=== PATIENT | female | born 1950 | race Caucasian/White ===

== ENCOUNTER 2023-10-16 07:00 | Outpatient (NON) | payer MEDICARE, SELFPAY | END 2023-10-16 07:01 | disposition home or self-care (01) | LOC: ANHLAB 10-17 08:30 | PROVIDERS: PCP Family Medicine; Visit Provider Internal Medicine Gastroenterology | DX: D12.2 Benign neoplasm of ascending colon (principal); R19.5 Other fecal abnormalities | CPT/HCPCS: 88305 ==

== ENCOUNTER 2023-10-16 07:15 | Day surgery (SDC) | payer MEDICARE, SELFPAY ==
[2023-09-25 09:13] VITALS: BMI 29.3
[2023-10-07 13:44] VITALS: BMI 29.1
[2023-10-16] MEDS: LACTATED RINGERS 1,000 ML 150 ML IV CONT (08:52)
[2023-10-16 08:53] VITALS: BP 143/80; PULSE 100; RESP 16; TEMP 36.8; O2SAT 99; BMI 29.2
--- NOTE | 2023-10-16 09:16 | PM.HPGS ---
History of Present Illness History of Present Illness Consent: Risks, benefits, and alternatives have been discussed and questions answered. Patient agrees to proceed with procedure. Chief complaint: Positive Cologuard test. Narrative: Melanie Duff is a 73 year old female referred for colonoscopy. Patient found to have Cologuard test that was positive. Patient reports that her current weight appetite and bowel movements are normal. She denies abdominal pain. Patient has had no bleeding. Family history is noncontributory. Review of Systems Review of Systems: All systems reviewed & are unremarkable except as noted in HPI and below PMFSH Past Medical History Medical History (Updated 10/16/23 @ 09:18 by Chase Sandhu MD) Breast cancer, left breast Wellness examination Surgical History Surgical History (Updated 08/16/23 @ 10:48 by LAILA Marshall-C) History of bladder surgery bladder sling History of hysterectomy History of mastectomy, total bilateral Hx of cataract surgery bilateral Hx of cholecystectomy Family History Family History Mother Hypertension Social History Social History Smoking status: Never smoker Alcohol intake: current Drinks per week: 4 Alcohol use details: social/holiday drinker Substance use: never Substance use type: does not use Lack of Transportation: No Lack of Food: Never True Current Housing: I Have Housing Concerned About Future Housing: No Difficulty Paying Gas/Electric Bills: No Difficulty Paying for Meds: No Education: Bachelor's Degree Difficulty w/ Childcare or Family Care: No Living arrangements: with family Occupation/Education: retired Spiritual care concerns: No Meds Home Medications and Allergies Home Medications Medication Instructions Recorded Confirmed Type Lactobacillus 1 cap PO DAILY 10/07/23 10/07/23 History acidophilus-Bifidobac.animalis 2.5 billion cell capsule (Daily Probiotic) Allergies Allergy/AdvReac Type Severity Reaction Status Date / Time Penicillins Allergy Unknown RASH Verified 10/16/23 08:38 Vital Signs Vital Signs - 24 hr 10/16/23 08:53 Temperature 98.3 F Pulse Rate 100 Respiratory Rate 16 Blood Pressure 143/80 H Pulse Oximetry 99 Oxygen Delivery Room Air Exam Narrative: Physical exam reveals patient to be alert signs stable. HEENT exam is unremarkable. Patient is anicteric. Lungs are clear to auscultation and to percussion. Heart is without murmur or extra sounds. Abdomen bowel sounds are present soft nontender with no organomegaly. Digital external rectal exam normal. Assessment and Plan Assessment and plan (1) Encounter for colorectal cancer screening using Cologuard test: Code(s): Z12.11 - Encounter for screening for malignant neoplasm of colon; Z12.12 - Encounter for screening for malignant neoplasm of rectum Status: Acute Assessment and Plan: Positive Cologuard test. Screening colonoscopy to be performed today.
--- NOTE | 2023-10-16 09:17 | P.PNAN_ITS ---
Anes - Initial Pre Proc Eval Procedure: Operation Date: 10/16/23 10:00 Proposed Procedures p Diagnostic Colonoscopy - Chase Sandhu MD Date/Time: 10/16/23 09:17 Surgeon: Chase Sandhu MD Pre Op Diagnosis: Other Fecal Abnormalities Patient Data Age: 73 Gender: F Height: 1.55 m Weight: 70.1 kg Last Vital Signs Temp 36.8 C 10/16/23 08:53 Pulse 100 10/16/23 08:53 Resp 16 10/16/23 08:53 BP 143/80 H 10/16/23 08:53 Pulse Ox 99 10/16/23 08:53 O2 Del Method Room Air 10/16/23 08:53 Allergies Allergy/AdvReac Type Severity Reaction Status Date / Time Penicillins Allergy Unknown RASH Verified 10/16/23 08:38 Home Medications Medication Instructions Recorded Confirmed Type Lactobacillus 1 cap PO DAILY 10/07/23 10/07/23 History acidophilus-Bifidobac.animalis 2.5 billion cell capsule (Daily Probiotic) Patient hx anesthesia problems: none Family hx anesthesia problems: none Results Review: All pre-operative results and documents have been reviewed as part of the pre- operative evaluation. [facility] Past Medical History Medical History Breast cancer, left breast Wellness examination Surgical History Surgical History History of bladder surgery bladder sling History of hysterectomy History of mastectomy, total bilateral Hx of cataract surgery bilateral Hx of cholecystectomy Family History Family History Mother Hypertension Social History Social History Smoking status: Never smoker Alcohol intake: current Drinks per week: 4 Alcohol use details: social/holiday drinker Substance use: never Substance use type: does not use Lack of Transportation: No Lack of Food: Never True Current Housing: I Have Housing Concerned About Future Housing: No Difficulty Paying Gas/Electric Bills: No Difficulty Paying for Meds: No Education: Bachelor's Degree Difficulty w/ Childcare or Family Care: No Living arrangements: with family Occupation/Education: retired Spiritual care concerns: No Anes - Eval Final PreProcedure Day of Procedure 10/16/23 09:17 Patient weight: overweight Heart: regular rate and rhythm Lungs: clear to auscultation Airway: Mallampati scale class II Neurological: alert and oriented Last oral intake: >/= 8 hours ASA classification: II Emergent: no Anesthetic plan: proceed Anesthesia type and monitoring: general GIVS and standard monitoring Results Review: All pre-operative results and documents have been reviewed as part of the pre- operative evaluation. Informed Consent: The patient's anesthetic plan and its attendant risks and benefits were discussed with the patient/family/POA. Questions were solicited and answers provided to the satisfaction of the patient/family/POA.
[2023-10-16 09:45] VITALS: BP 94/49; PULSE 79; RESP 15; O2SAT 94
[2023-10-16 09:55] VITALS: BP 104/71; PULSE 79; RESP 16; O2SAT 100
--- NOTE | 2023-10-16 09:56 | WPDANESPN ---
Anes - Prog Note Post-Op Date/Time: 10/16/23 09:56 Cardiovascular status: normal Respiratory status: normal Airway patency: baseline Mental status: baseline Post-Op hydration status: normal Vital Signs: Last Vital Signs Temp 36.8 C 10/16/23 08:53 Pulse 100 10/16/23 08:53 Resp 16 10/16/23 08:53 BP 143/80 H 10/16/23 08:53 Pulse Ox 99 10/16/23 08:53 O2 Del Method Room Air 10/16/23 08:53 Pain Score (VAS): 0/10 I/O: Intake & Output 10/15/23 10/16/23 10/16/23 23:59 07:59 15:59 Intake Total 550 Balance 550 Patient Feedback: Patient satisfied with anesthetic care.
[2023-10-16 10:05] VITALS: BP 112/69; PULSE 80; RESP 16; O2SAT 100
== END 2023-10-16 10:22 | disposition home or self-care (01) ==
PROVIDERS: PCP Family Medicine; Visit Provider Internal Medicine Gastroenterology
PROC: 0DJD8ZZ Inspection of Lower Intestinal Tract, Via Natural or Artificial Opening Endoscopic (ICD-10-PCS; CPT 45378; principal; 2023-10-16 10:00)
DX: R19.5 Other fecal abnormalities (principal); D37.4 Neoplasm of uncertain behavior of colon
CPT/HCPCS: 45380; 45381

== ENCOUNTER 2023-11-05 13:36 | Outpatient (CLI) | payer MEDICARE, SELFPAY ==
--- NOTE | 2023-11-05 15:13 | ECG_ITS ---
Test Date: 2023-11-05 15:25:11 Measurements Intervals [place] Rate: 67 P: -8 [place]: 138 QRS: -1 QRSD: 136 T: 66 QT: 415 QTc: 438 Interpretive Statements SINUS RHYTHM LEFT BUNDLE BRANCH BLOCK BASELINE ARTIFACT- I, II, III, AVR, AVL, AVF ABNORMAL ECG No previous ECG available for comparison Electronically Signed On 11-05-2023 15:33:42 CDT by Benigno Matos D.O.
[2023-11-05 15:56] LABS: Hemoglobin 13.4 g/dL (12.0-15.0)
== END 2023-11-05 13:37 | disposition home or self-care (01) ==
PROVIDERS: Anesthesiology; PCP Family Medicine; Visit Provider Surgery
DX: K63.89 Other specified diseases of intestine (principal); Z01.818 Encounter for other preprocedural examination
CPT/HCPCS: 36415; 85014; 85018; 86850; 86900; 86901; 93005

== ENCOUNTER 2023-11-11 08:16 | Inpatient (IN) | payer MEDICARE, SELFPAY ==
[2023-11-05 14:26] VITALS: BMI 29.6
--- NOTE | 2023-11-05 14:32 | PC.NURSE ---
Report to the Outpatient Waiting Room, entrance under the green pavilion located off [facility], at time _10:00AM_ on date _11/11/23_. Planned Procedure Time: _12:00PM .? Time changes happen often and if your time is changed the preop area will call you the afternoon before. - You and your visitor will be asked to self-screen and do not enter if you have any COVID symptoms. Please call surgeon if you need to reschedule. - A mask is optional within the hospital at this time. Patients may have clear liquids DAY BEFORE AND MORNING OF SURGERY-(water, carbonated beverages, clear teas, apple juice) until 3 hours prior TO SURGERY. Take only the following medications with a SIP of water on the morning of surgery: NONE DO NOT STOP ANY OF YOUR OTHER PRESCRIPTION MEDICATIONS PRIOR TO SURGERY EXCEPT THE FOLLOWING Medications to discontinue per physician ____HOLD VITAMINS/SUPPLEMENTS 3 DAYS PRE-OP PER ANESTHESIA Date to take last dose 11/07/23 Please no make-up, nail guamanian, hairspray, perfume, deodorant, or body powder the day of surgery.? No jewelry (including any body piercings) or valuables the day of surgery, leave them at home.? Please take a shower or bath the night before, or the morning of, surgery with an antibacterial soap.? Wear comfortable, loose fitting clothing.? - Jewelry must be removed prior to entering the operating room.? Rings and piercings that are not removed may be cut off. - The hospital will not accept responsibility for valuables.? - Please leave all valuables, including medications, at home the day of surgery. If you are going home after surgery, a licensed day haul or farm charter bus driver must drive you home.? - NO public transportation without another adult if you receive anesthesia. - We recommend that an adult stay with you for 24 hours following discharge. - We also recommend that you do not drive, make important decision, drink alcoholic beverages, or take any drugs that were not prescribed by your health care provider for at least 24 hours after your discharge time. Follow any additional instructions given to you from your surgeon. GAIL SHOWER PER INSTRUCTIONS ENSURE BUNDLE INSTRUCTIONS. BOWEL PREP INSTRUCTIONS. ANTIBIOTIC INSTRUCTIONS FOR DAY BEFORE SURGERY. Telephone instructions given to ____PATIENT and asked if any additional questions and then verbalized understanding. Patient advised to call surgeon office or pre surgery nurse liaison [phone] if any additional questions.
[2023-11-11] VITALS (11 sets, daily range): BP systolic 112–141; BP diastolic 50–72; PULSE 73–102; RESP 10–18; TEMP 35.7–36.7; O2SAT 93–100; BMI 28.8
[2023-11-11] MEDS: ACETAMINOPHEN 500 MG TABLET 1000 MG PO (10:36)
[2023-11-11] MEDS: KETOROLAC 15 MG/ML VIAL (*BKC) IV PUSH (10:36)
--- NOTE | 2023-11-11 11:37 | WPDANESEPPF ---
Anes - Initial Pre Proc Eval Procedure: Operation Date: 11/11/23 12:00 Proposed Procedures p Hand Assisted Laparoscopic Right Colectomy - Nadya Almeida MD Date/Time: 11/11/23 11:37 Surgeon: Nadya Almieda MD Pre Op Diagnosis: right colon mass Patient Data Age: 73 Gender: F Height: 1.55 m Weight: 69.1 kg Last Vital Signs Temp 98 F 11/11/23 11:08 Pulse 93 11/11/23 11:08 Resp 16 11/11/23 11:08 BP 141/62 H 11/11/23 11:08 Pulse Ox 100 11/11/23 11:08 Allergies Allergy/AdvReac Type Severity Reaction Status Date / Time Penicillins Allergy Unknown RASH Verified 11/11/23 11:01 Home Medications Medication Instructions Recorded Confirmed Type Lactobacillus 1 cap PO DAILY 10/07/23 11/11/23 History acidophilus-Bifidobac.animalis 2.5 billion cell capsule (Daily Probiotic) cholecalciferol (vitamin D3) 25 25 mcg PO DAILY 10/30/23 11/11/23 History mcg (1,000 unit) capsule ciprofloxacin HCl 500 mg tablet 500 mg PO .COMPLEX #1 tablet 11/05/23 11/11/23 Rx metronidazole 500 mg tablet 500 mg PO .COMPLEX #3 tabs 11/05/23 11/11/23 Rx omeprazole magnesium 20 mg 20 mg PO DAILY PRN Indigestion 11/05/23 11/05/23 History capsule,delayed release (Acid [employer] (omeprazole)) Patient hx anesthesia problems: none Family hx anesthesia problems: none Results Review: All pre-operative results and documents have been reviewed as part of the pre-operative evaluation. [facility] Past Medical History Medical History (Updated 10/30/23 @ 11:27 by Altagracia Vega CMA) Breast cancer, left breast Wellness examination Surgical History Surgical History (Updated 10/30/23 @ 11:21 by Kena Briones) History of bladder surgery bladder sling History of hysterectomy History of mastectomy, total bilateral with left axillary SLN biopsy. Hx of cataract surgery bilateral Hx of cholecystectomy Family History Family History Mother Hypertension Social History Social History Smoking packs per day: 0.2 Smoking cigarettes per day: 4.0 Years smoked: 2 Smoking pack-years: 0.40 Smoking status: Former smoker Tobacco type: cigarettes Smoking end date: 09/02/71 Alcohol intake: current Drinks per week: 5 Alcohol use details: social/holiday drinker Substance use: never Substance use type: does not use Do You Feel Safe in your Home?: Yes Lack of Transportation: No Lack of Food: Never True Current Housing: I Have Housing Concerned About Future Housing: No Difficulty Paying Gas/Electric Bills: No Difficulty Paying for Meds: No Currently Unemployed: No Education: Bachelor's Degree Difficulty w/ Childcare or Family Care: No Living arrangements: with family Additional living arrangements comments: [facility] Occupation/Education: retired Spiritual care concerns: No Anes - Eval Final PreProcedure Day of Procedure 11/11/23 11:37 Patient weight: normal Heart: regular rate and rhythm Lungs: clear to auscultation Airway: Mallampati scale class II Neurological: alert and oriented Last oral intake: >/= 8 hours ASA classification: III Emergent: no Anesthetic plan: proceed Anesthesia type and monitoring: general ETT and standard monitoring Results Review: All pre-operative results and documents have been reviewed as part of the pre-operative evaluation. Informed Consent: The patient's anesthetic plan and its attendant risks and benefits were discussed with the patient/family/POA. Questions were solicited and answers provided to the satisfaction of the patient/family/POA.
[2023-11-11] MEDS: LACTATED RINGERS 1,000 ML 30 ML IV CONT ×2 (12:00→14:03)
--- NOTE | 2023-11-11 12:06 | WPDHPUPDATE1 ---
History and Physical Update Update Date/Time: 11/11/23 12:06 History and Physical has been reviewed, including an updated exam of the patient. There are NO changes in the patient's condition. Risks, benefits, and alternatives have been discussed and questions answered. Patient agrees to proceed with procedure.
[2023-11-11] MEDS: ceFAZolin 2 GM/D5W 50 ML 2 GM/50 ML BAG IVPB (12:20)
[2023-11-11] MEDS: BUPIVACAINE/EPINEPHRINE 0.5% 50 ML VIAL 30 ML INFILTRATE (12:38)
--- NOTE | 2023-11-11 13:51 | W.PM.PROC2 ---
Procedure Note - Detailed Date of Procedure 11/11/23 Pre-op Diagnosis right colon mass Post-op Diagnosis Same Procedure Performed hand assisted laparoscopic right hemicolectomy c mobilization of hepatic flexure, lysis of adhesion of approximately 30 minutes Surgeon Nadya Almeida MD Anesthesia General Indications 73-year-old female ascending colon mass found on colonoscopy. 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 Findings palpable mass and tatoo in proximal ascending colon Description of Procedure The patient was taken to the operating room and placed in the supine position. After adequate induction of general anesthesia, the patient was prepped and draped normal sterile fashion. A time-out was then done to verify the patient's identity as well as the procedure being performed. I began by making a hand port incision around the umbilicus. This was carried down into the peritoneal cavity and there was noted adhesions to the right superior anterior abdominal wall. These adhesions were taken down under visualization with the bovie cautery. Once the abdominal wall was cleared, the hand port was then placed. I then insufflated the abdomen through the hand port. I then placed the camera through the hand port and under direct visualization, I placed 2 further 5 mm ports in right lower and right mid abdomen. Once this was done, I examined the right abdomen. It was noted that the patient had adhesions of the cecum and distal ileum to the pelvis. These adhesions were taken down both bluntly and with the ligasure under direct visualization. This adhesiolysis took approximately 30 minutes. Once the right colon was mobilized, I began my medial approach. I did this by 1st recognizing and transecting the right colic vessels. This was taken down near the base of the mesentery with the LigaSure. Once this was done, I carried this plane towards the hepatic flexure until I encountered the duodenum which was mobilized posteriorly. I then began taking down the lateral attachments of the terminal ileum and right colon including taking down the white line of Toldt and the hepatic flexure. Once this was done my medial and lateral dissection planes met. I was able to easily manipulate the right colon. The tattoed region and palpable mass was noted in the proximal ascending colon. At this point, I extracorporealyzed the right colon and terminal ileum. I then transected the terminal ileum approximately 10 cm proximal to the ileo colic junction with a 75 WING stapler. I then localized the tumor in the proximal ascending colon. I measured 10 cm distal to this and transected the ascending colon at this point. Of note, I was able to palpate the middle colic vessels and the transection was done proximal to the vessels. I then performed a [id number] functional end-to-end anastomosis between the ileum and distal ascending colon with a 75 WING stapler followed by a TL 60 stapler. The anastomosis was noted to be tension-free and widely patent. I closed the messenteric defect with a 2.0 silk suture. I then copiously irrigated the abdomen, no other pathology was noted. I then closed the hand port incision with a 0 PDS suture at the fascial level. The skin was closed with 4 O Monocryl subcuticular sutures including the 5 mm ports sites. Dermabond was then placed on all wounds. The patient tolerated the procedure well. She was extubated in the operating room postoperatively and will be transferred to the recovery room in stable condition. Estimated Blood Loss 25 Drains No Packing No Pathology Yes Complications No immediate complications Condition Stable Disposition PACU [facility] Billing Surgery - Charge Forward: Surgery Billing
--- NOTE | 2023-11-11 15:23 | ADMGEN ---
This patient, Melanie Duff, was admitted to 3 Med Surg Room 331-01. Patient/family oriented to hospital policies and general routines including ID bracelet, bed and alarms, visiting hours, pain management, procedures, bathroom and other care routines, personal items, smoking policy, room service/diet, and visiting hours. Information on how to activate the Rapid Response Team has been discussed. Patient/Family are encouraged to report perceived risks to care and to ask questions if they do not understand what they are told or what they should do.
[2023-11-11] MEDS: LACTATED RINGERS 1,000 ML 100 ML IV CONT (16:14)
[2023-11-11] MEDS: metroNIDAZOLE 500 MG/ISO 100ML 500 MG/100 ML BAG 100 MG IVPB ×2 (16:45→23:26)
[2023-11-11] MEDS: LACTATED RINGERS 1,000 ML 80 ML IV CONT (16:46)
[2023-11-11] MEDS: HYDROmorphone HCL INJ (*CRX) 1 MG/ML SYR 0.5 MG IV PUSH (20:53)
[2023-11-11] MEDS: FAMOTIDINE 20 MG/2 ML VIAL IV PUSH (20:53)
[2023-11-12] VITALS (8 sets, daily range): BP systolic 101–138; BP diastolic 58–63; PULSE 84–100; RESP 14–20; TEMP 36.7–37.1; O2SAT 90–96
[2023-11-12] MEDS: BENZOCAINE/MENTHOL (*BKC) 18 EA LOZENGE 1 LOZENGE PO (00:21)
[2023-11-12] MEDS: ONDANSETRON INJ 4 MG/2 ML VIAL IV PUSH ×2 (00:32→18:47)
[2023-11-12] MEDS: HYDROmorphone HCL INJ (*CRX) 1 MG/ML SYR IV PUSH ×3 (03:27→18:47)
[2023-11-12] MEDS: LACTATED RINGERS 1,000 ML 100 ML IV CONT (05:22)
[2023-11-12 06:32] LABS: Hematocrit 33.6 % (37.0-47.0); Hemoglobin 11.3 g/dL (12.0-15.0); Mean Corpuscular HGB Conc 33.6 g/dl (32-36); Mean Corpuscular Hemoglobin 32.9 pg (26-34); Mean Platelet Volume 9.8 fl (7.4-10.4); Platelet Count Result 255 k/mm3 (150-375); Red Blood Count 3.43 M/mm3 (4.2-5.4); Red Cell Distribution Width 11.6 % (11.5-14.5); White Blood Count 9.5 K/mm3 (4.5-10.0)
[2023-11-12 06:45] LABS: Anion Gap 10 mmol/L (4-12); Blood Urea Nitrogen 11 mg/dL (7-17); Calcium 8.6 mg/dL (8.4-10.2); Carbon Dioxide 25 mmol/L (22-30); Chloride 97 mmol/L (98-107); Estimated CRCL calculation 58 ml/min; Estimated Glomerular Filt Rate > 60; Glucose 122 mg/dL (65-110); Sodium 132 mmol/L (137-145)
[2023-11-12] MEDS: ENOXAPARIN 40 MG/0.4 ML SYRINGE SUB-Q (08:08)
[2023-11-12] MEDS: FAMOTIDINE 20 MG/2 ML VIAL IV PUSH ×2 (08:08→20:34)
--- NOTE | 2023-11-12 08:53 | WPDANESPN ---
Anes - Prog Note Post-Op Date/Time: 11/12/23 08:53 Cardiovascular status: normal Respiratory status: normal Airway patency: baseline Mental status: baseline Post-Op hydration status: normal Vital Signs: Last Vital Signs Temp 37.1 C 11/12/23 04:35 Pulse 100 11/12/23 04:35 Resp 18 11/12/23 04:35 BP 105/62 11/12/23 04:35 Pulse Ox 95 11/12/23 04:35 O2 Del Method Room Air 11/11/23 20:53 O2 Flow Rate 6 11/11/23 14:15 Pain Score (VAS): 3 I/O: Intake & Output 11/11/23 11/12/23 11/12/23 23:59 07:59 15:59 Intake Total 210 1200 Output Total 500 Balance 210 700 Laboratory Tests 11/12/23 06:08 11/12/23 06:08 11/12/23 06:08 WBC 9.5 RBC 3.43 L Hgb 11.3 L Hct 33.6 L MCV 98.0 MCH 32.9 MCHC 33.6 RDW 11.6 Plt Count 255 MPV 9.8 Sodium 132 L Potassium 4.0 Chloride 97 L Carbon Dioxide 25 Anion Gap 10 BUN 11 Creatinine 0.70 Estim Creat Clear Calc 58 Estimated GFR > 60 Glucose 122 H Calcium 8.6 Post-procedural complaints: none Patient Feedback: Patient satisfied with anesthetic care.
--- NOTE | 2023-11-12 14:04 | PM.PNGS ---
Progress Note: A&P Assessment and Plan (1) Mass of colon: Code(s): K63.89 - Other specified diseases of intestine Status: Acute Assessment and Plan: S/p GELACIO right hemicolectomy and doing well POD1 Advance to full liquids, ADAT. Stop IV fluids. Transition to oral pain medication. Increase activity, ambulate in the halls. Encouraged IS use. Pathology pending Plan I have discussed the patient's case and plan of care with Dr. Almeida Subjective Subjective Date/Time Seen: 11/12/23 14:04 Post Op day: 1 (GELACIO right hemicolectomy) Patient reports: tolerating liquids well, voiding w/o difficulty, no flatus, no bowel movement and afebrile Interval history: Patient doing well. Reports mild bloating and incisional soreness that is controlled. She is ambulating and tolerating this well. No nausea or vomiting. No other complaints at this time. Exam Const: General: comfortable and no acute distress GI: Inspection: non-distended and incision (incisions dry and intact) GI Palp: Yes Soft to palpation, Yes Tenderness to palpation present (GI) (incisional) and No Guarding due to palpation present (GI) Auscultation: Hypoactive bowel sounds present Neuro: General: moves all extremities and no focal motor deficits Extrem: General: no calf tenderness and no edema Psych: Mental Status: mental status grossly normal Insight: Good insight present (Psych) Objective Data Vital Signs Vital Signs: Vital Signs - 24 hr 11/11/23 14:25 11/11/23 14:15 11/11/23 14:30 Temperature Pulse Rate 91 81 Respiratory Rate 12 12 Blood Pressure 122/72 136/66 Pulse Oximetry 100 97 Oxygen Delivery Room Air Simple Face Mask Room Air Oxygen Flow Rate 6 11/11/23 14:45 11/11/23 15:00 11/11/23 15:15 Temperature 97.0 F L Pulse Rate 78 78 73 Respiratory Rate 12 14 12 Blood Pressure 131/59 L 122/50 L 135/55 L Pulse Oximetry 95 97 98 Oxygen Delivery Room Air Room Air Room Air Oxygen Flow Rate 11/11/23 15:45 11/11/23 16:00 11/11/23 16:30 Temperature 97.3 F L 96.3 F L 96.6 F L Pulse Rate 84 79 86 Respiratory Rate 16 18 18 Blood Pressure 112/70 127/54 L 130/70 Pulse Oximetry 97 93 98 Oxygen Delivery Oxygen Flow Rate 11/11/23 20:53 11/11/23 21:00 11/12/23 00:55 Temperature 98.1 F 98.4 F Pulse Rate 94 92 Respiratory Rate 18 20 Blood Pressure 118/70 119/60 Pulse Oximetry 96 94 Oxygen Delivery Room Air Oxygen Flow Rate 11/12/23 04:35 11/12/23 08:08 11/12/23 07:33 Temperature 98.8 F 98.6 F Pulse Rate 100 87 Respiratory Rate 18 16 Blood Pressure 105/62 124/63 Pulse Oximetry 95 96 Oxygen Delivery Room Air Oxygen Flow Rate Intake/Output Intake/Output: Intake & Output 11/09/23 11/10/23 11/11/23 11/12/23 23:59 23:59 23:59 23:59 Intake Total 760 1550 Output Total 500 Balance 760 1050 Meds/Results Medications: Active Medications Generic Name Dose Route Start Last Admin Trade Name Freq PRN Reason Stop Dose Admin Hydrocodone Bitart/Acetaminophen 1 tab 11/11/23 13:48 Hydrocodone/Acetaminophen (*Crx) 5-325 Mg Tablet PO Q4H PRN Pain Rated 4-6 Benzocaine 1 lozenge 11/11/23 23:53 11/12/23 00:21 Benzocaine/Menthol (*Bkc) 18 Ea Lozenge PO 1 lozenge PRN PRN Administration Sore Throat Enoxaparin Sodium 40 mg 11/12/23 09:00 11/12/23 08:08 Enoxaparin 40 Mg/0.4 Ml Syringe SUB-Q 40 mg DAILY PINKY Administration Famotidine 20 mg 11/11/23 21:00 11/12/23 08:08 Famotidine 20 Mg/2 Ml Vial IV PUSH 20 mg Q12HR PINKY Administration Hydromorphone HCl 1 mg 11/11/23 13:48 11/12/23 11:04 Hydromorphone Hcl Inj (*Crx) 1 Mg/Ml Syr IV PUSH 1 mg Q2H PRN Administration Breakthrough Pain Rated 7-10 or NPO Hydromorphone HCl 0.5 mg 11/11/23 13:48 11/11/23 20:53 Hydromorphone Hcl Inj (*Crx) 1 Mg/Ml Syr IV PUSH 0.5 mg Q2H PRN Administration Breakthrough Pain Rated 4-6 or NPO Lactated Ringer's 1,000 mls @
[2023-11-12] MEDS: HYDROcodone/acetaminophen (*CRX) 5-325 MG TABLET 1 TAB PO (23:55)
[2023-11-13 03:42] VITALS: BP 121/65; PULSE 94; RESP 16; TEMP 36.6; O2SAT 89
[2023-11-13 06:16] LABS: Hematocrit 32.8 % (37.0-47.0); Hemoglobin 10.8 g/dL (12.0-15.0); Mean Corpuscular HGB Conc 32.9 g/dl (32-36); Mean Corpuscular Hemoglobin 32.5 pg (26-34); Mean Corpuscular Volume 98.8 fl (80-100); Mean Platelet Volume 10.2 fl (7.4-10.4); Platelet Count Result 229 k/mm3 (150-375); Red Blood Count 3.32 M/mm3 (4.2-5.4); Red Cell Distribution Width 11.4 % (11.5-14.5); White Blood Count 6.6 K/mm3 (4.5-10.0)
[2023-11-13 06:39] LABS: Anion Gap 6 mmol/L (4-12); Blood Urea Nitrogen 5 mg/dL (7-17); Calcium 8.8 mg/dL (8.4-10.2); Carbon Dioxide 30 mmol/L (22-30); Chloride 98 mmol/L (98-107); Estimated CRCL calculation 68 ml/min; Estimated Glomerular Filt Rate > 60; Glucose 100 mg/dL (65-110); Potassium 3.4 mmol/L (3.4-5.0); Sodium 134 mmol/L (137-145)
[2023-11-13 08:00] VITALS: O2SAT 93
[2023-11-13] MEDS: HYDROcodone/acetaminophen (*CRX) 5-325 MG TABLET 1 TAB PO (08:22)
[2023-11-13] MEDS: FAMOTIDINE 20 MG/2 ML VIAL IV PUSH (08:22)
[2023-11-13] MEDS: ENOXAPARIN 40 MG/0.4 ML SYRINGE SUB-Q (08:22)
--- NOTE | 2023-11-13 12:13 | PM.DS ---
DS: Admitting Diagnosis Discharge Date 11/13/2023 Admitting Diagnosis Colon mass DS: Discharge Diagnosis Discharge Diagnosis (1) Tubulovillous adenoma of colon: Code(s): D12.6 - Benign neoplasm of colon, unspecified Status: Acute (2) Mass of colon: Code(s): K63.89 - Other specified diseases of intestine Status: Acute DS: Summary Hospital Course Reason for hospitalization: This is a 73-year-old woman who presented for a right hemicolectomy due to a colon mass that was found on colonoscopy. 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 Hospital Course: She underwent hand assisted laparoscopic right hemicolectomy with mobilization of hepatic flexure, lysis of adhesions by Dr. Almeida on 11/11/2023. See operative note. Surgery was straightforward. Patient had her diet slowly advanced as tolerated. She was voiding without difficulty after surgery. Pain has been well controlled and she is tolerating activity. She had some mild nausea with due to pain in the evenings, but no vomiting. She is tolerating a solid diet by postop day [address] Almeida who agrees she is stable for discharge. Pathology discussed with patient and her prior to discharge. Status at Discharge Functional status at discharge: independent ambulation Overall status at discharge: patient is progressing back to baseline Time Spent with Patient Time attestation: Total time spent providing and/or coordinating discharge services: Time spent: Less than 30 minutes Exam Const: General: comfortable and no acute distress Resp: Effort & Inspection: normal respiratory effort Auscultation: clear to auscultation bilaterally Cardio: Rate: regular rate Rhythm: regular rhythm GI: Inspection: non-distended and incision (incisions dry and intact) GI Palp: Yes Soft to palpation, Yes Tenderness to palpation present (GI) (incisional) and No Guarding due to palpation present (GI) Auscultation: normal bowel sounds Neuro: General: moves all extremities and no focal motor deficits Extrem: General: no calf tenderness and no edema Psych: Mental Status: mental status grossly normal Insight: Good insight present (Psych) DS: Data Data Completed and Pending Completed studies during hospitalization: Pathology Report Name: Melanie Duff Spec Num: [id number] : 1950 MR#: [id number] Age: 73 Acct: [id number] Location: [address] Specimen Date: 11/11/23 Provider: Nadya Almeida MD Receive Date: 11/11/23 Copies to:Nadya Almeida MD;Lee Ann Webber MD;~ Final Diagnosis Large intestine, right colon, hemicolectomy: - Tubulovillous adenoma with high-grade dysplasia, 6.7 cm - Twelve lymph nodes with no histologic abnormality - Margins negative for tubulovillous adenoma Labs on day of discharge: Labs from last 24 hours 11/13/23 05:40 WBC 6.6 RBC 3.32 L Hgb 10.8 L Hct 32.8 L MCV 98.8 MCH 32.5 MCHC 32.9 RDW 11.4 L Plt Count 229 MPV 10.2 Sodium 134 L Potassium 3.4 Chloride 98 Carbon Dioxide 30 Anion Gap 6 BUN 5 L D Creatinine 0.60 L Estim Creat Clear Calc 68 Estimated GFR > 60 Glucose 100 Calcium 8.8 Procedures/Treatments: Procedures Operation Date: 11/11/23 12:00 Actual Procedure Side Surgeon p Hand Assisted Laparoscopic Right Colectomy Right Nadya Almeida MD Discharge Plan Discharge Attending physician on discharge: Nadya Almeida Discharging Clinician: Mami Brown Anticipated Discharge Date/Time: 11/13/23 12:16 Patient Disposition: Home, Self-Care Activity: may shower Diet: as tolerated and regular Wound Care Instructions: incision open to air Discharge Instructions: DISCHARGE INSTRUCTIONS FOR DR. ALMEIDA 1. May shower in 24 hours, no soaking in bath x 2weeks. 2. Call office for: Wound increasingly painful
== END 2023-11-13 13:40 | disposition home or self-care (01) | DRG 331 ==
LOC: ANHSURGERY 09:49 → ANH3MEDSUR 15:14
PROVIDERS: Admitting Provider Surgery; PCP Family Medicine; Visit Provider Nurse Practitioner Family
PROC: 0DTF4ZZ Resection of Right Large Intestine, Percutaneous Endoscopic Approach (ICD-10-PCS; CPT 44204; principal; 2023-11-11 12:00)
DX: D12.2 Benign neoplasm of ascending colon (principal); Z85.3 Personal history of malignant neoplasm of breast; Z90.13 Acquired absence of bilateral breasts and nipples
CPT/HCPCS: 36415; 80048; 85027; 88309; A9270; J0690; J1100; J1170; J1650; J1836; J1885; J2371; J2405; J2704; J3010; J7030; J7120

== ENCOUNTER 2024-08-17 12:31 | Outpatient (CLI) | payer MEDICARE, SELFPAY ==
--- OUTSIDE RECORDS SUMMARY | 2024-08-17 13:22 | XMS_ITS | Encounter Summary ---
Author Organization [facility] Address 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 Gender Identity Not on file Sexual Orientation Not on file documented as of this encounter Plan of Treatment Upcoming Encounters Date Type Department Care Team (Late st Contact Info) Description 07/21/2025 12:05 PM CDT Appointment [facility] Laboratory Services [facility] [address], [place] [address] [place] [address] Vipul Rizvi MD [address] [place] [phone] 07/21/2025 1:05 PM CDT Office Visit [facility] Oncology and Hematology [facility] [address] [address] Vipul Rizvi MD [address] [place] [phone] documented as of this encounter Visit Diagnoses Diagnosis Malignant neoplasm of breast (female), unspecified site documented in this encounter Care Teams Alloy Weigher Relationship Specialty Start Date End Date Tam Luis MD [address] [place] [address] PCP - General 05/01/04 07/18/22 documented as of this encounter
--- OUTSIDE RECORDS SUMMARY | 2024-08-17 13:22 | XMS_ITS | Encounter Summary ---
Author Organization [facility] Address [address] [place] [address] Care Team Providers Care Medicine Teacher Name Role Phone Tam Luis MD Primary Care Provider [phone] Encounter Details Date Type Department Care Team (Late st Contact Info) Description 08/21/2007 Outpatient Historical [facility] Sonia Baarhona MD [address] [facility] [address] [address] Cem Barrett MD [address] [facility] [address] [place] [address] Malignant Neoplasm of Breast (Female), Unspecified Site (CMS/HCC) Social History Tobacco Use Types Packs/Day Years Used Date Smoking Tobacco: Never Assessed Comments Unknown Sex and Gender Information Value Date Recorded Sex Assigned at Not on file 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 Gender Identity Not on file Sexual Orientation Not on file documented as of this encounter Plan of Treatment Upcoming Encounters Date Type Department Care Team (Late st Contact Info) Description 07/21/2025 12:05 PM CDT Appointment [facility] Laboratory Services [facility] [place] [address] [facility] [place] [address] Vipul Rizvi MD [address] [facility] [address] [place] [address] 07/21/2025 1:05 PM CDT Office Visit [facility] Oncology and Hematology [facility] [place] [address] [facility] [address] [place] [address] Vipul Rizvi MD [address] [facility] [address] [place] [address] documented as of this encounter Procedures Procedure Name Priority Date/Time Associated Diagnosis Comments PATHOLOGY Routine 09/09/2007 5:00 PM CDT TYPE AND SCREEN Routine 09/09/2007 11:21 AM CDT HEMOGLOBIN AND HEMATOCRIT Routine 08/26/2007 7:52 AM CDT documented in this encounter Results * PATHOLOGY (09/09/2007 5:00 PM CDT) FINAL REPORT [facility] [address], [place] [address] Patient: KALYN DUFF : 1950 Procedure Date: 09/09/2007 Accession Date: 09/10/2007 Case No: [id number] Ordering Dr: SONIA BARAHONA Case types AW, BW, FW, NW and SH are performed by [facility], [place], [place] SURGICAL PATHOLOGY & NON-GYNECOLOGIC CYTOPATHOLOGY REPORT DIAGNOSIS BREAST, RIGHT, MASTECTOMY: - NONPROLIFERATIVE AND PROLIFERATIVE BREAST CHANGES WITHOUT ATYPIA. - MICROCALCIFICATIONS. LYMPH NODE, RIGHT AXILLARY SENTINEL, EXCISION: - NO PATHOLOGIC DIAGNOSIS. 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 - BIOPSY SITE CHANGES. - MICROCALCIFICATIONS. LYMPH NODES, LEFT AXILLARY, DISSECTION: - NEGATIVE FOR METASTATIC CARCINOMA (6 NODES EXAMINED). SOFT TISSUE, LEFT AXILLARY, DISSECTION: - BIOPSY SITE CHANGES. Specimen Description: (1) Right breast one clip superior, two clips lateral; (2) right axillary sentinel lymph node #1; (3) left breast one clip superior, two clips lateral; (4) left axillary contents. Operative Procedure: Bilateral mastectomies. Patient Information/History/Di agnosis: Excision ductal carcinoma in situ/atypical hyperplasia. Gross: The specimen is received in four containers labeled Kalyn Duff. Received in the first container labeled right breast, one clip-superior, two clips-lateral is a 16 x 15 x 3.3 cm, 392 g, simple mastectomy specimen oriented with clips as indicated. The skin ellipse measures 8.3 x 4.5 cm and contains a 3.5 x 3.5 cm, medially located areola with a 1.3 x 1.2 x 0.8 cm nipple. The margins are marked with ink as follows: deep black and subcutaneous blue. The breast is serially sectioned from lateral to medial to reveal dense fibrous tissue predominantly interspersed with adipose tissue. No mass lesions are identified. The subareolar tissue is blue dye- stained. Sections are submitted as follows: A1-nipple; A2-areolar shave; A3-subareolar tissue; A4 through A6- upper outer quadrant; A7 through A9- upper inner quadrant; A10 through N15-mosbi outer quadrant; A13 through Y51-qsxgl inner quadrant. Received in the second container labeled right axillary sentinel lymph node #1 is a 1.3 x 1 x 0.7 cm piece of adipose tissue. A 1.2 x 1 x 0.3 cm node is dissected, bisected, and submitted in B1. Received in the third container labeled left breast is an 18 x 14x 2.6 cm, 368 g simple mastectomy specimen oriented with clips as indicated. The skin ellipse measures 9.5 x 4.5 cm and contains a 4 x 3.7 cm, medially located areola with a 1.4 x 1.1 x 0.5 cm nipple. The margins are marked with ink as follows: deep black and subcutaneous blue. The specimen is serially sectioned from medial to lateral to reveal a 1.9 x 1.8 x 1.2 cm, jimenez, indurated, stellate mass in the upper outer quadrant located 1.1 cm from the deep margin and 1 cm from the subcutaneous margin. A separate 0.8 cm indurated area consistent with prior biopsy site containing a metal clip is also identified. The remaining parenchyma is composed of dense fibrous tissue admixed with adipose tissue. Sections are submitted as follows: C1- nipple; C2-areolar shave; C3 and C4-subareolar parenchyma; C5 and C6-upper outer quadrant mass with deep margin; C7-mass and subcutaneous margin; C8 and C9-parenchyma immediately medial to mass; C10 through B67-uvysscoaum immediately lateral to mass; C13 and C14- upper outer quadrant; C15 and C16- upper inner quadrant; C17 and C18- lower inner quadrant; O72-mzfks out quadrant; C20 through C78-ldvsn outer quadrant biopsy cavity. Received in the fourth container labeled left axillary contents is an aggregate of yellow adipose tissue measuring 5 x 2.5 x 1 cm. Multiple nodes ranging from 0.8 to 1.7 cm are dissected and sumitted as follows: C23 and C94-pexatdvh nodes; C25 through C27-one bisected node in each. [facility] 09.11.2007 05:56 am Microscopic: The slides are labeled [id number], Kalyn Duff. Sections of the right breast show benign breast parenchyma with a spectrum of changes including duct ectasia, columnar cell change without atypia, and moderate to focally florid ductal epithelial hyperplasia. Benign luminal microcalcifications are seen. No invasive or in situ carcinoma is identified. Multiple H&E-stained sections of the right axillary sentinel lymph node are examined. No metastatic carcinoma is seen. An immunohistochemical stain for cytokeratin is performed and is interpreted as negative. The left breast contains two separate foci of carcinoma, both of which are low-grade, in the upper outer and lower outer quadrants. The tumor in the lower outer quadrant measures 0.7 cm on the glass slide. The malignant cells have intermediate-grade nuclear features and are present in small, angular glands and cribriform nests. The mitotic rate is low. This corresponds to a modified Souza-Martinez score of 4. No definite angiolymphatic invasion is seen. Both are also associated with intermediate-grade ductal carcinoma in situ. The predominant architectural pattern is cribriform. The cells have intermediate-grade nuclear features with single cell necrosis. The lesion in the upper outer quadrant is associated with a biopsy cavity containing amorphous eosinophilic material. There are biopsy site changes characterized by fibrosis and fat necrosis adjacent. The lesion in the lower outer quadrant is adjacent to a biopsy site which is characterized by fibrosis, fat necrosis, hemosiderin deposition, and inflammation. The remainder of the breast parenchyma shows a spectrum of changes including duct ectasia, columnar cell change, radial scar, and fibroadenomatoid hyperplasia. Luminal microcalcifications are seen. Six additional axillary lymph nodes are examined. No metastatic carcinoma is seen. There are biopsy site changes in the axillary soft tissue characterized by fat necrosis, fibrosis, and hemorrhage. Summary of Significant Characteristics: Specimen Type: Mastectomy. Lymph Node Sampling: Axillary. Specimen Size (If Not Mastectomy): Mastectomy. Laterality: Left. Tumor Site(s): Upper outer and lower outer quadrants. Tumor Size (Invasive Component): 1.9 x 1.8 x 1.2 and 0.7 cm (measured on glass slide). Histologic Type(s): Ductal. Mitotic Figure Count: Low. Histologic Grade: Low-grade, modified Souza-Martinez 4. Extent of Invasion (TNM): yT1c, pN1mi, MX (see previous [id number]) Lymph Nodes: Number Examined 6; Number Involved 0. Margin(s): Uninvolved. Note on use of immunocytochemistry reagents: This test was developed and its performance characteristic determined by [facility], Department of Laboratory Medicine. It has not been cleared or approved by the U.S. Food and Drug Administration. The FDA has determined that such clearance or approval is not necessary. The test is used for clinical purpose. It should not be regarded as investigational or for research. This laboratory is certified to perform high complexity clinical testing. [facility] 09.12.2007 11:43 am Staging Form: Yes. ELECTRONIC SIGNATURE FOR ZOILA COLEMAN M.D.- 09/12/07 04:05 pm INTERFACE SYSTEM 09/09/2007 5:00 PM CDT Sonia Barahona MD PATHOLOGY/CYTOLOGY ORDERABLE S Final Result INTERFACE SYSTEM Refer to clinic/hospital department * TYPE AND SCREEN (09/09/2007 11:21 AM CDT) HISTORY CHECK No Historical ABO/Rh [facility] SPECIMEN LIFE 3 days from drawdate [facility] ABO/RH TYPE A Positive [facility] ANTIBODY SCREEN Negative [facility] Blood specimen (specimen) 09/09/2007 11:21 AM CDT Sonia Barahona MD BLOOD BANK ORDERABLES Edited Performing Organization Address City/[facility]/ZIP Co de Phone Number [facility] CLIA# [id number] [address] [place] [address] * (ABNORMAL) HEMOGLOBIN AND HEMATOCRIT (08/26/2007 7:52 AM CDT) HEMATOCRIT 34.6(L) 35.5 - 44.0 % [facility] HEMOGLOBIN 11.2(L) 11.8 - 14.8 g/dL [facility] Blood specimen (specimen) 08/26/2007 7:52 AM CDT 08/26/2007 8:26 AM CDT Sonia Barahona MD HEMATOLOGY ORDERABLES Final Result Performing Organization Address [facility] Co de Phone Number [facility] CLIA# [id number] [address] [place] [address] documented in this encounter Visit Diagnoses Diagnosis Malignant neoplasm of breast (female), unspecified site documented in this encounter Care Teams Medicine Teacher Relationship Specialty Start Date End Date Tam Luis MD [address] [place] [id number] PCP - General 05/01/04 07/18/22 documented as of this encounter
--- OUTSIDE RECORDS SUMMARY | 2024-08-17 13:22 | XMS_ITS | Encounter Summary ---
Author Organization [facility] Address [address] [place] [address] Care Team Providers Care Undergraduate Advisor Name Role Phone Tam Luis MD Primary Care Provider [phone] Encounter Details Date Type Department Care Team (Late st Contact Info) Description 08/05/2007 Outpatient Historical [facility] Sonia Barahona MD [address] [place] [address] [address] [address] Malignant Neoplasm of Breast (Female), Unspecified Site (CMS/HCC) Social History Tobacco Use Types Packs/Day Years Used Date Smoking Tobacco: Never Assessed Comments Unknown Sex and Gender Information Value Date Recorded Sex Assigned at Not on file 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 Gender Identity Not on file Sexual Orientation Not on file documented as of this encounter Plan of Treatment Upcoming Encounters Date Type Department Care Team (Late Contact Info) Description 07/21/2025 12:05 PM CDT Appointment [facility] Laboratory Services [facility] [address], [address] [place] [address] Vipul Rizvi MD [address] [place] [address] 07/21/2025 1:05 PM CDT Office Visit [facility] Oncology and Hematology [facility] [address] [place] [address] Vipul Rizvi MD [address] [facility] [address] [place] [address] documented as of this encounter Visit Diagnoses Diagnosis Malignant neoplasm of breast (female), unspecified site documented in this encounter Care Teams Undergraduate Advisor Relationship Specialty Start Date End Date Tam Luis MD [address] [facility] [place] [address] PCP - General 05/01/04 07/18/22 documented as of this encounter
--- OUTSIDE RECORDS SUMMARY | 2024-08-17 13:22 | XMS_ITS | Encounter Summary ---
Author Organization Address [address] [place] [address] Care Team Providers Care Camp Nurse Name Role Phone Hawa Fuentes MD Primary Care Provider Encounter Details Date Type Department Care Team (Late Contact Info) Description 08/07/2007 Outpatient Historical [facility] Sonia Brown MD [address] [place] [address] [address] [address] Malignant Neoplasm of Breast (Female), Unspecified Site (CMS/HCC) Social History Tobacco Use Types Packs/Day Years Used Date Smoking Tobacco: Never Assessed Comments Unknown Sex and Gender Information Value Date Recorded Sex Assigned at Not on file 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 Gender Identity Not on file Sexual Orientation Not on file documented as of this encounter Plan of Treatment Upcoming Encounters Date Type Department Care Team (Late Contact Info) Description 07/21/2025 12:05 PM CDT Appointment [facility] Laboratory Services Daniel Cartwright [facility] [address], [address] [place] [address] Vipul Rizvi MD [address] [place] [address] 07/21/2025 1:05 PM CDT Office Visit [facility] Oncology and Hematology [facility] [address] [place] [address] Vipul Rizvi MD [address] [facility] [address] [place] [address] documented as of this encounter Procedures Procedure Name Priority Date/Time Associated Diagnosis Comments US BREAST Routine 08/07/2007 8:53 AM CDT MAMMO DIAGNOSTIC BILATERAL W OR WO CAD Routine 08/07/2007 8:46 AM CDT documented in this encounter Results * US BREAST (08/07/2007 8:53 AM CDT) Anatomical Region Laterality Modality Other 08/07/2007 8:53 AM CDT Narrative 08/07/2007 11:44 AM CDT [facility] [address], [place] [address] Admit Date: 08/07/2007 KALYN DUFF Sex: F Admit Prov: SONIA BARAHONA Date: 1950 Primary Care Prov: HAWA FUENTES CMRN: [id number] Room: [facility] SSN: [id number] IMAGING SERVICES Ordering Prov: SONIA BARAHONA Accession Number: [id number] Interpretation Bilateral diagnostic digital mammograms with computer-assisted diagnosis 08/07/07 Left breast sonograms Reason for this examination: Carcinoma in the left breast. Followup to neoadjuvant chemotherapy. Preoperative evaluation. The parenchyma is dense bilaterally. This lowers the sensitivity of mammography in detecting disease. There are no significant abnormalities on the right. There is partially obscured, spiculated mass in the upper-outer quadrant of the left breast. This contains a microclip placed after a percutaneous biopsy. This lesion is compatible with the carcinoma described historically. The films were reviewed using the CAD system. Sonograms of the left breast reveal a 1.9 cm solid mass with irregular margins. This corresponds to the carcinoma in the upper-outer quadrant. There is a 5 mm solid nodule anterior to the dominant lesion. This is also described on recent MRI of the breast. Other nodules described on the MRI report are not visible on the mammograms or sonograms. There are microcalcifications in each breast which are thought to be benign. Conclusion: 1.9 cm mass in the upper-outer quadrant of the left breast, compatible with biopsy-proven carcinoma. Sonograms show a 5 mm solid nodule anterior to the palpable mass. This is probably a satellite neoplasm. Recommendations: [facility] Radiology will send for the patient's prior mammograms from [facility] for comparison. Overall assessment: BIRADS category 0 - Needs additional imaging evaluation. Dictated by: WILLIAM TRINIDAD Electronically signed by: WILLIAM TRINIDAD 08/07/2007 11:44 Transcribed: 08/07/2007 11:09 AMK Procedure Note William Trinidad MD - 08/07/2007 [facility] [address], [place] [address] Admit Date: 08/07/2007 KALYN DUFF Sex: F Admit Prov: SONIA BARAHONA Date: 1950 Primary Care Prov: ROSIBELKarma HAWA Tip CMRN: [id number] Room: [facility] SSN: [id number] IMAGING SERVICES Ordering Prov: SONIA BARAHONA Interpretation Bilateral diagnostic digital mammograms with computer-assisteddiagnosis 08/07/07 Left breast sonograms Reason for this examination: Carcinoma in the left breast. Followupto neoadjuvant chemotherapy. Preoperative evaluation. The parenchyma is dense bilaterally. This lowers the sensitivity of mammography in detecting disease. There are no significantabnormalities on the right. There is partially obscured, spiculated mass in the upper-outerquadrant of the left breast. This contains a microclip placed after apercutaneous biopsy. This lesion is compatible with the carcinoma described historically. The films were reviewed using the CAD system. Sonograms of the left breast reveal a 1.9 cm solid mass withirregular margins. This corresponds to the carcinoma in the upper-outerquadrant. There is a 5 mm solid nodule anterior to the dominant lesion. This isalso described on recent MRI of the breast. Other nodules described on theMRI report are not visible on the mammograms or sonograms. There are microcalcifications in each breast which are thought marilyn benign. Conclusion: 1.9 cm mass in the upper-outer quadrant of the left breast,compatible with biopsy-proven carcinoma. Sonograms show a 5 mm solid nodule anterior to the palpable mass.This is probably a satellite neoplasm. Recommendations: [facility] will send for the patient's prior mammograms from [facility] for comparison. Overall assessment: BIRADS category 0 - Needs additional imaging evaluation. Dictated by: WILLIAM TRINIDAD Electronically signed by: WILLIAM TRINIDAD 08/07/2007 11:44 Transcribed: 08/07/2007 11:09 AMK us Sonia Barahona MD US ORDERABLES Final Result * MAMMO DIGITAL DIAG BILAT (08/07/2007 8:46 AM CDT) Anatomical Region Laterality Modality Breast Bilateral Other 08/07/2007 8:46 AM CDT Narrative 08/13/2007 9:47 AM CDT [address] [address] Admit Date: 08/07/2007 KALYN DUFF Sex: F Admit Prov: AUDREY SONIA Date: 1950 Primary Care Prov: ALFREDO HAWA Tip CMRN: [id number] Room: [facility] SSN: [id number] IMAGING SERVICES Ordering Prov: WENDYFARNAZ SONIA Accession Number: [id number] Addendum Since the prior report, the patient's previous mammograms from [facility] have become available for review. These are dated 01/29/2007. The current study shows a 1.9 cm solid mass with irregular margins in the upper-outer quadrant of the left breast. This has diminished in size significantly since 01/29/2007. There are benign calcifications in each breast. Some calcifications associated with the left breast mass may be malignant. There are no other significant findings. Conclusion: Interval decrease in size of left breast mass. Overall assessment: BI-RADS category 6, biopsy-proven malignancy. Assessment BIRADS: 6-Known biopsy proven malignancy Recommendation: Appropriate action should be taken Dictated by: WILLIAM TRINIDAD Electronically signed by: WILLIAM TRINIDAD 08/13/2007 09:47 Transcribed: 08/13/2007 09:25 AMK Interpretation Bilateral diagnostic digital mammograms with computer-assisted diagnosis 08/07/07 Left breast sonograms Reason for this examination: Carcinoma in the left breast. Followup to neoadjuvant chemotherapy. Preoperative evaluation. The parenchyma is dense bilaterally. This lowers the sensitivity of mammography in detecting disease. There are no significant abnormalities on the right. There is partially obscured, spiculated mass in the upper-outer quadrant of the left breast. This contains a microclip placed after a percutaneous biopsy. This lesion is compatible with the carcinoma described historically. The films were reviewed using the CAD system. Sonograms of the left breast reveal a 1.9 cm solid mass with irregular margins. This corresponds to the carcinoma in the upper-outer quadrant. There is a 5 mm solid nodule anterior to the dominant lesion. This is also described on recent MRI of the breast. Other nodules described on the MRI report are not visible on the mammograms or sonograms. There are microcalcifications in each breast which are thought to be benign. Conclusion: 1.9 cm mass in the upper-outer quadrant of the left breast, compatible with biopsy-proven carcinoma. Sonograms show a 5 mm solid nodule anterior to the palpable mass. This is probably a satellite neoplasm. Recommendations: [facility]iology will send for the patient's prior mammograms from [facility] for comparison. Overall assessment: BIRADS category 0 - Needs additional imaging evaluation. Report revised on 08/13/2007 9:47:26 AM by WILLIAM TRINIDAD Assessment BIRADS: 0-Incomplete: Need additional imaging evaluation Recommendation: Old films for comparison Dictated by: WILLIAM TRINIDAD Electronically signed by: WILLIAM TRINIDAD 08/07/2007 11:44 Transcribed: 08/07/2007 11:09 AMK Procedure Note William Trinidad MD - 08/13/2007 [facility] [address] [place], [place] [address] Admit Date: 08/07/2007 KALYN DUFF Sex: F Admit Prov: SONIA BARAHONA Date: 1950 Primary Care Prov: ALFREDO HAWA Tip CMRN: [id number] Room: [facility] N: [id number] IMAGING SERVICES Ordering Prov: SONIA BARAHONA Addendum Since the prior report[facility]. These are dated[facility]/2006. The current study shows a 1.9 cm solid mass with irregular margins inthe upper-outer quadrant of the left breast. This has diminished insize significantly since 01/29/2007. There are benign calcifications in each breast. Some calcifications associated with the left breast mass may be malignant. There are noother significant findings. Conclusion: Interval decrease in size of left breast mass. Overall assessment: BI-RADS category 6, biopsy-proven malignancy. Assessment BIRADS: 6-Known biopsy proven malignancy Recommendation: Appropriate action should be taken Dictated by: WILLIAM TRINIDAD Electronically signed by: WILLIAM TRINIDAD 08/13/2007 09:47 Transcribed: 08/13/2007 09:25 AMK Interpretation Bilateral diagnostic digital mammograms with computer-assisteddiagnosis 08/07/07 Left breast sonograms Reason for this examination: Carcinoma in the left breast. Followupto neoadjuvant chemotherapy. Preoperative evaluation. The parenchyma is dense bilaterally. This lowers the sensitivity of mammography in detecting disease. There are no significantabnormalities on the right. There is partially obscured, spiculated mass in the upper-outerquadrant of the left breast. This contains a microclip placed after apercutaneous biopsy. This lesion is compatible with the carcinoma described historically. The films were reviewed using the CAD system. Sonograms of the left breast reveal a 1.9 cm solid mass withirregular margins. This corresponds to the carcinoma in the upper-outerquadrant. There is a 5 mm solid nodule anterior to the dominant lesion. This isalso described on recent MRI of the breast. Other nodules described on theMRI report are not visible on the mammograms or sonograms. There are microcalcifications in each breast which are thought marilyn benign. Conclusion: 1.9 cm mass in the upper-outer quadrant of the left breast,compatible with biopsy-proven carcinoma. Sonograms show a 5 mm solid nodule anterior to the palpable mass.This is probably a satellite neoplasm. Recommendations: [facility] will send for the patient's prior mammograms from [facility] for comparison. Overall assessment: BIRADS category 0 - Needs additional imaging evaluation. Report revised on 08/13/2007 9:47:26 AM by WILLIAM TRINIDAD Assessment BIRADS: 0-Incomplete: Need additional imagingevaluation Recommendation: Old films for comparison Dictated by: WILLIAM TRINIDAD Electronically signed by: WILLIAM TRINIDAD 08/07/2007 11:44 Transcribed: 08/07/2007 11:09 AMK us Sonia Barahona MD MAMMO ORDERABLES Edited documented in this encounter Visit Diagnoses Diagnosis Malignant neoplasm of breast (female), unspecified site documented in this encounter Care Teams Camp Nurse Relationship Specialty Start Date End Date Hawa Fuentes MD [address] [place] [address] PCP - General 05/01/04 07/18/22 documented as of this encounter
--- OUTSIDE RECORDS SUMMARY | 2024-08-17 13:22 | XMS_ITS | Encounter Summary ---
Author Organization [facility] Address 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 Gender Identity Not on file Sexual Orientation Not on file documented as of this encounter Plan of Treatment Upcoming Encounters Date Type Department Care Team (Late st Contact Info) Description 07/21/2025 12:05 PM CDT Appointment [facility] Laboratory Services [facility] [address], [place] [address] [place] [address] Vipul Rizvi MD [address] [place] [address] 07/21/2025 1:05 PM CDT Office Visit [facility] Oncology and Hematology [facility] [address] [address] Vipul Rizvi MD [address] [place] [address] documented as of this encounter Procedures Procedure Name Priority Date/Time Associated Diagnosis Comments CBC WITH DIFFERENTIAL Stat 07/14/2007 1:33 PM CDT COMPREHENSIVE METABOLIC PANEL Stat 07/14/2007 1:33 PM CDT CBC WITH DIFFERENTIAL Stat 06/23/2007 1:48 PM CDT COMPREHENSIVE METABOLIC PANEL Stat 06/23/2007 1:48 PM CDT documented in this encounter Results * (ABNORMAL) COMPREHENSIVE METABOLIC PANEL (07/14/2007 1:33 PM CDT) ALKALINE PHOSPHATASE 96 35 - 104 U/L [facility] [place] BILIRUBIN TOTAL 0.2 0.2 - 1.0 mg/dL [facility] [place] CO2 25 22 - 30 mmol/L [facility] [place] TOTAL PROTEIN 6.5 6.3 - 8.6 g/dL [facility] [place] POTASSIUM 4.0 3.5 - 4.9 mmol/L [facility] [place] [facility] GLUCOSE 77 65 - 99 mg/dL [facility] [place] AST 25 12 - 32 U/L [facility] [place] BUN 20 6 - 20 mg/dL [facility] [place] CALCIUM 8.8 8.4 - 10.2 mg/dL [facility] [place] CHLORIDE 106 96 - 108 mmol/L [facility] [place] ALBUMIN 4.2 3.4 - 4.8 g/dL [facility] [place] CREATININE 0.62 0.51 - 0.95 mg/dL [facility] [place] SODIUM 142 135 - 145 mmol/L [facility] ALT 33(H) 0 - 31 U/L [facility] GFR, >60 >=60 mL/min/1.7 sq meter [facility] [place] GFR >60 >=60 mL/min/1.7 sq meter [facility] Comment: Estimated GFR rate interpretative information for both Americans and non- Americans is available on the [facility] Intranet at: [email or web address] Select: Lab Policies and Procedures Select: Reference Ranges - GFR Blood specimen (specimen) 07/14/2007 1:33 PM CDT 07/14/2007 1:36 PM CDT Yousif CHEMISTRY ORDERABLES Edited [facility] CLIA# [id number] [address] [facility] [place] [address] * (ABNORMAL) CBC WITH DIFFERENTIAL (07/14/2007 1:33 PM CDT) MCV 99.5(H) 82.0 - 99.0 fL [facility] PLATELETS 243 140 - 350 K/uL [facility] [place] HEMOGLOBIN 12.5 11.8 - 14.8 g/dL [facility] [place] RDW 13.5 11.5 - 14.5 % [facility] WBC 5.2 4.0 - 9.8 K/uL [facility] MCH 32.0 27.2 - 32.6 pg [facility] [place] MPV 8.8(L) 9.3 - 12.4 fL [facility] HEMATOCRIT 38.9 35.5 - 44.0 % [facility] [place] RDW-STDEV 47.8 37.1 - 48.7 fL [facility] RBC 3.91 3.90 - 4.90 M/uL [facility] [place] MCHC 32.1 31.5 - 35.5 % [facility] [place] NEUTROPHILS 70 45 - 70 % [facility] NEUTROPHIL ABSOLUTE 3.66 1.90 - 7.00 K/uL [facility] [place] EOSINOPHILS 2 0 - 7 % [facility] EOSINOPHIL ABSOLUTE 0.09 0.00 - 0.70 K/uL [facility] [place] LYMPHOCYTES 19 16 - 45 % [facility] LYMPHOCYTE ABSOLUTE 0.97 0.70 - 4.50 K/uL [facility] [place] BASOPHILS 1 0 - 2 % [facility] BASOPHILS ABSOLUTE 0.03 0.00 - 0.20 K/uL [facility] MONOCYTES 9 3 - 13 % [facility] MONOCYTE ABSOLUTE 0.48 0.10 - 1.30 K/uL [facility] Blood specimen (specimen) 07/14/2007 1:33 PM CDT 07/14/2007 1:36 PM CDT us Hsiaoou Hu HEMATOLOGY ORDERABLES Edited [facility] CLIA# [id number] [address] [address] * (ABNORMAL) COMPREHENSIVE METABOLIC PANEL (06/23/2007 1:48 PM CDT) ALKALINE PHOSPHATASE 93 35 - 104 U/L [facility] BILIRUBIN TOTAL 0.2 0.2 - 1.0 mg/dL [facility] [place] CO2 25 22 - 30 mmol/L [facility] [place] TOTAL PROTEIN 6.4 6.3 - 8.6 g/dL [facility] [place] POTASSIUM 4.0 3.5 - 4.9 mmol/L [facility] [place] GLUCOSE 84 65 - 99 mg/dL [facility] AST 24 12 - 32 U/L [facility] [place] [place] BUN 15 6 - 20 mg/dL [facility] [place] CALCIUM 8.6 8.4 - 10.2 mg/dL [facility] CHLORIDE 105 96 - 108 mmol/L [facility] ALBUMIN 4.2 3.4 - 4.8 g/dL [facility] CREATININE 0.57 0.51 - 0.95 mg/dL [facility] SODIUM 141 135 - 145 mmol/L [facility] ALT 35(H) 0 - 31 U/L [facility] GFR, >60 >=60 mL/min/1.7 sq meter [facility] GFR >60 >=60 mL/min/1.7 sq meter [facility] Comment: Estimated GFR rate interpretative information for both Americans and non- Americans is available on the [facility] Intranet at: [email or web address] Select: Lab Policies and Procedures Select: Reference Ranges - GFR Blood specimen (specimen) 06/23/2007 1:48 PM CDT 06/23/2007 2:00 PM CDT Hsiaoou Hu CHEMISTRY ORDERABLES Edited [facility] [address] [place] [address] * (ABNORMAL) CBC WITH DIFFERENTIAL (06/23/2007 1:48 PM CDT) WBC 6.2 4.0 - 9.8 K/uL [facility] MCH 32.7(H) 27.2 - 32.6 pg [facility] MPV 9.0(L) 9.3 - 12.4 fL [facility] HEMATOCRIT 33.6(L) 35.5 - 44.0 % [facility] RDW-STDEV 44.1 37.1 - 48.7 fL [facility] RBC 3.36(L) 3.90 - 4.90 M/uL [facility] MCHC 32.7 31.5 - 35.5 % [facility] MCV 100.0(H) 82.0 - 99.0 fL [facility] PLATELETS 268 140 - 350 K/uL [facility] HEMOGLOBIN 11.0(L) 11.8 - 14.8 g/dL [facility] RDW 12.6 11.5 - 14.5 % [facility] BASOPHILS 0 0 - 2 % [facility] MONOCYTE ABSOLUTE 0.50 0.10 - 1.30 K/uL [facility] MONOCYTES 8 3 - 13 % [facility] NEUTROPHILS 76(H) 45 - 70 % [facility] NEUTROPHIL ABSOLUTE 4.68 1.90 - 7.00 K/uL [facility] [place] EOSINOPHIL ABSOLUTE 0.07 0.00 - 0.70 K/uL [facility] [place] EOSINOPHILS 1 0 - 7 % [facility] LYMPHOCYTE ABSOLUTE 0.92 0.70 - 4.50 K/uL [facility] [place] LYMPHOCYTES 15(L) 16 - 45 % [facility] BASOPHILS ABSOLUTE 0.02 0.00 - 0.20 K/uL [facility] Blood specimen (specimen) 06/23/2007 1:48 PM CDT 06/23/2007 2:00 PM CDT Hsiaoou Hu HEMATOLOGY ORDERABLES Edited [facility] [address] [place] [address] documented in this encounter Visit Diagnoses Diagnosis Malignant neoplasm of breast (female), unspecified site documented in this encounter Care Teams Engineering Project Designer Relationship Specialty Start Date End Date Tam Luis MD [address] [place] [address] PCP - General 05/01/04 07/18/22 documented as of this encounter
--- OUTSIDE RECORDS SUMMARY | 2024-08-17 13:22 | XMS_ITS | Encounter Summary ---
Author Organization [facility] Address [address] [place] [address] Care Team Providers Care Real Estate Attorney Name Role Phone Hawa Luis MD Primary Care Provider [phone] Encounter Details Date Type Department Care Team (Late st Contact Info) Description 08/14/2007 Outpatient Historical [facility] MRI DEPT Sonia Ventura MD [address] [place] [address] [address] [address] Malignant Neoplasm of Breast (Female), Unspecified Site (CMS/HCC); Malignant Neoplasm of Lower-Outer Quadrant of Female Breast (CMS/HCC) Social History Tobacco Use Types Packs/Day Years Used Date Smoking Tobacco: Never Assessed Comments Unknown Sex and Gender Information Value Date Recorded Sex Assigned at Not on file Legal 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 Gender Identity Not on file Sexual Orientation Not on file documented as of this encounter Plan of Treatment Upcoming Encounters Date Type Department Care Team (Late st Contact Info) Description 07/21/2025 12:05 PM CDT Appointment [facility] Laboratory Services [facility] [address], [address] [place] [address] Vipul Rizvi MD [address] [place] [address] 07/21/2025 1:05 PM CDT Office Visit [facility] Oncology and Hematology [facility] [address] [place] [address] Vipul Rizvi MD [address] [facility] [address] [place] [address] documented as of this encounter Procedures Procedure Name Priority Date/Time Associated Diagnosis Comments PATHOLOGY Routine 08/14/2007 5:00 PM CDT MRI BREAST W WO CONTRAST LEFT Timed Study 08/14/2007 3:14 PM CDT MAMMO DIAGNOSTIC UNI LEFT W OR WO CAD Routine 08/14/2007 3:09 PM CDT documented in this encounter Results * PATHOLOGY (08/14/2007 5:00 PM CDT) FINAL REPORT [facility] [address], [place] [address] Patient: KALYN HAWKINS : 1950 Procedure Date: 08/14/2007 Accession Date: 08/15/2007 Case No: [id number] Ordering Dr: KRISTAN SALOMON Case types AW, BW, FW, NW and SH are performed by [facility] - [place], [place], [place] SURGICAL PATHOLOGY & NON-GYNECOLOGIC CYTOPATHOLOGY REPORT DIAGNOSIS BREAST, LEFT, LOWER OUTER QUADRANT, MRI GUIDED CORE BIOPSY: - INVASIVE DUCTAL CARCINOMA, LOW GRADE (MODIFIED SOUZA-RODRÍGUEZ SCORE 4). - DUCTAL CARCINOMA IN SITU, INTERMEDIATE GRADE. Specimen Description: Left breast. Operative Procedure: Not specified. Patient Information/History/Di agnosis: Left breast mass-5 mm mass left breast left lower outer jxuiqkjy-TYL-hqwfwp core, 6 9-gauge cores. History of left breast cancer-suspect second focus of cancer. Gross: Received in a single container labeled Kalyn Hawkins and left breast mass biopsy are six cores and six fragments of fibrofatty tissue with small areas of hemorrhage. The cores measure 0.3 to 0.4 cm in diameter and range from 0.9 to 1.2 cm in length. The fragments range from 0.1 to 0.5 cm in maximum dimension. All are submitted labeled A1 through A3. LINNETTE/DMITRI 08.15.2007 10:03 am Microscopic: Received are slides labeled [id number] Kalyn Hawkins. Sections of left breast lower outer quadrant identify, in two of the needle cores, infiltrates of low grade invasive ductal carcinoma. Well formed tubules are present surfaced by neoplastic cells with intermediate nuclear grade features. Fewer than 10 mitoses are identified per 10 high- power mg. Minute microcalcifications are associated. There is adjacent intermediate grade ductal carcinoma in situ with a cribriform pattern. Lymphatic and/or vascular invasion are not identified. Ductal carcinoma in situ is remarkable for focal, central necrosis. Summary of Significant Characteristics: Specimen Type: Core biopsy. Laterality: Left. Tumor Site(s): Lower outer quadrant. Tumor Size (Invasive Component): Approximately 0.5 cm (aggregate measurement from slide) . Histologic Type(s): Invasive ductal carcinoma. Mitotic Figure Count: Fewer than 10 mitoses per 10 high-power mg. Histologic Grade: Low grade (modified Souza-Rodríguez 4). Extent of Invasion (TNM): TX NX MX. CORKY/ZOYA 08.16.2007 09:13 am Staging Form: Yes. ELECTRONIC SIGNATURE FOR MARGARET CABRERA M.D.- 08/16/07 09:15 am INTERFACE SYSTEM ADDENDUM REPORT [address] [address] Patient: KALYN HAWKINS : 1950 Procedure Date: 08/14/2007 Accession Date: 08/15/2007 Case No: [id number] Ordering Dr: KRISTAN SALOMON Case types AW, BW, FW, NW and SH are performed by [facility] [place] [place], [place] ADDENDUM REPORT NOTE: This addendum is issued to report results of ancillary studies. DIAGNOSIS: INVASIVE DUCTAL CARCINOMA. Site: Left breast. Block #: [id number], section A1. Duration of Fixation*: 28 hrs Test Results ER (immunohistochemistry) = Positive, 6. AK (immunohistochemistry) = Negative, 2/. HER-2 gene amplification (FISH) = 1.0 unamplified. MIB-1 (immunohistochemistry) = 3% low. Note on use of immunocytochemistry reagents: This test was developed and its performance characteristic determined by [facility], Department of Laboratory Medicine. It has not been cleared or approved by the U.S. Food and Drug Administration. The FDA has determined that such clearance or approval is not necessary. The test is used for clinical purpose. It should not be regarded as investigational or for research. This laboratory is certified to perform high complexity clinical testing. METHODS AND REFERENCE RANGES Estrogen Receptor/Progesterone Receptor: Estrogen and progesterone receptor content is assayed in a semiquantitative manner utilizing the Dako CytomaLineHop ER/AK pharmDx immunohistochemical kit. Results are reported as a total score (range 0 to 8) which equals the sum of the proportion score (percentage of tumor cells with positive nuclear staining) and the intensity score (average staining intensity of all positive tumor cells). Reference Ranges Total Score 0-2 = negative >= 3 = positive Proportion Score (% positive cells) 0 = none 1 = > 0 to 1% 2 = > 1% to 10% 3 = > 10% to 33.3% 4 = > 33.3% to 67.7% 5 = > 67.7% Intensity Score (average staining intensity) 0 = none 1 = weak 2 = intermediate 3 = strong HER-2 Gene Amplification: Cases are [facility], [place], [place], for performance and interpretation of fluorescence in situ hybridization (FISH) for detection of possible HER-2 gene amplification. Reference Ranges Amplified (Positive) HER-2/CEP-17 ratio > 2.2 Borderline Amplified (Borderline) HER-2/CEP-17 ratio 1.8 - 2.2 UnAmplified (Negative) HER-2/CEP-17 ratio < 1.8 HER-2 gene amplification is assessed utilizing the PathVysion assay ([employer] [place], [place]). The identification probes for HER-2 (SpectrumOrange) and alpha satellite DNA sequence at the centromeric region of chromosome 17 (SpectrumGreen) are hybridized according to the registered nurse first assistant's guidelines. At least twenty non- overlapping nuclei containing at least one orange and one green signal are enumerated. The ratio of orange signals (HER-2 gene) to green signals (chromosome 17) is calculated. A ratio greater than or equal to 2.0 is considered amplified based on the FDA approval in this kit. The CAP HER-2 consensus conference 2002 suggested that a ratio of 1.8 - 2.2 be considered borderline. A copy of the complete report from [facility] is available for review from the Pathology Department. If FISH results are unavailable due to technical factors or are equivocal (borderline), HER2 expression will be assessed by immunohistochemistry. HER-2 Protein Expression: The Dako Hercept Test kit is utilized. Stains are performed and interpreted by [facility]. Interpretation may be performed manually or by image analysis. A copy of the complete report is available for review from the Pathology Department. Reference Ranges 0 1+ = not overexpressed. 2+ = borderline 3+ = overexpressed. MIB-1 (Ki-67) Proliferation Index: Immunohistochemical stain for MIB-1 (performed by [facility]) is utilized to assess tumor cell proliferation. The percent of positive cells is determined with the aid of image analysis ([employer] software). MIB-1 measures the percentage of tumor cells in the G1, S, G2, and M phases of the cell cycle. Data are reported as percent of tumor cell nuclei staining. Reference Ranges Low (Favorable) <= 10% Borderline > 10% to <= 20% High (Unfavorable) > 20% * Method of fixation is neutral buffered formalin unless otherwise specified. NELSY/ZOYA 08.22.07 ELECTRONIC SIGNATURE FOR LISSET BENAVIDES M.D. - 08/22/07 10:43 am SURGICAL PATHOLOGY & NON-GYNECOLOGIC CYTOPATHOLOGY REPORT DIAGNOSIS BREAST, LEFT, LOWER OUTER QUADRANT, MRI GUIDED CORE BIOPSY: - INVASIVE DUCTAL CARCINOMA, LOW GRADE (MODIFIED SOUZA-RODRÍGUEZ SCORE 4). - DUCTAL CARCINOMA IN SITU, INTERMEDIATE GRADE. Specimen Description: Left breast. Operative Procedure: Not specified. Patient Information/History/Di agnosis: Left breast mass-5 mm mass left breast left lower outer xyhuvrpd-CMU-jilljd core, 6 9-gauge cores. History of left breast cancer-suspect second focus of cancer. Gross: Received in a single container labeled Kalyn Hawkins and left breast mass biopsy are six cores and six fragments of fibrofatty tissue with small areas of hemorrhage. The cores measure 0.3 to 0.4 cm in diameter and range from 0.9 to 1.2 cm in length. The fragments range from 0.1 to 0.5 cm in maximum dimension. All are submitted labeled A1 through A3. LINNETTE/DMITRI 08.15.2007 10:03 am Microscopic: Received are slides labeled [id number] Kalyn Hawkins. Sections of left breast lower outer quadrant identify, in two of the needle cores, infiltrates of low grade invasive ductal carcinoma. Well formed tubules are present surfaced by neoplastic cells with intermediate nuclear grade features. Fewer than 10 mitoses are identified per 10 high- power mg. Minute microcalcifications are associated. There is adjacent intermediate grade ductal carcinoma in situ with a cribriform pattern. Lymphatic and/or vascular invasion are not identified. Ductal carcinoma in situ is remarkable for focal, central necrosis. Summary of Significant Characteristics: Specimen Type: Core biopsy. Laterality: Left. Tumor Site(s): Lower outer quadrant. Tumor Size (Invasive Component): Approximately 0.5 cm (aggregate measurement from slide) . Histologic Type(s): Invasive ductal carcinoma. Mitotic Figure Count: Fewer than 10 mitoses per 10 high-power gm. Histologic Grade: Low grade (modified Souza-Rodríguez 4). Extent of Invasion (TNM): TX NX MX. PJC/DRC 08.16.2007 09:13 am Staging Form: Yes. ELECTRONIC SIGNATURE FOR MARGARET CABRERA M.D.- 08/16/07 09:15 am INTERFACE SYSTEM 08/14/2007 5:00 PM CDT us Kristan Martin MD PATHOLOGY/CYTOLOGY ORDERABL ES Edited INTERFACE SYSTEM Refer to clinic/hospital department * MRI BREAST W WO CONTRAST LEFT (08/14/2007 3:14 PM CDT) Anatomical Region Laterality Modality Breast Left Other 08/14/2007 3:14 PM CDT Narrative 08/15/2007 2:31 PM CDT [facility] [address] [place], [place] [address] Admit Date: 08/14/2007 KALYN HAWKINS Sex: F Admit Prov: SONIA VENTURA Date: 1950 Primary Care Prov: ALFREDO HAWA Tip CMRN: [id number] Room: [facility] SSN: [id number] IMAGING SERVICES Ordering Prov: SONIA VENTURA Accession Number: [id number] Interpretation Left breast MRI-guided vacuum assisted core biopsy with tissue marker placement and left breast full field digital diagnostic mammogram with computer aided diagnosis. 08/14/2007 History: The patient has known left breast cancer. Patient has been on neoadjuvant chemotherapy. The patient had an MRI performed on 07/21/2007 which demonstrated a decrease in the size of the mass in the upper-outer quadrant. However, 3 satellite lesions were identified. The largest of which measured 6 to 7 mm and was located in the lower outer quadrant of the left breast. MRI guided core biopsy of this has been ordered. Technique: The risks and benefits of the procedure were discussed with the patient. The patient had an opportunity to ask questions, all of which were answered. The patient then gave written informed consent. The patient was placed in a prone position on MRI table. Multisequence multiplanar breast MRI was performed before and after the intravenous administration of 14 ml of Optimark. The enhancing mass identified inferior to the patient's known breast cancer was identified. This area was targeted using MRI guidance. The skin over this region was prepped in the usual sterile fashion. Using 1% lidocaine without epinephrine, the skin and subcutaneous tissues were anesthetized. Using MRI guidance, lesion was targeted from a lateral approach. Six 9-gauge core biopsies were obtained. A post biopsy mammogram demonstrated complete resection of the mass. A tissue marker was placed at the site. Hemostasis was achieved. A sterile bandage was placed over the incision. The patient was brought in stable condition to the mammography suite where a two-view left breast full field digital diagnostic mammogram was performed and compared with the previous study dated 08/07/2007. The breast composition is heterogeneously dense. The postbiopsy mammogram demonstrated placement of a clip inferior to the patient's known carcinoma. Patient tolerated the procedure well and there were no immediate complications. The patient was discharged from the department in stable condition. The patient was given verbal as well as written postprocedure instructions. Impression: Technically successful left breast MRI guided core biopsy with tissue marker placement. Dictated by: KRISTAN SALOMON Electronically signed by: KRISTAN SALOMON 08/15/2007 14:31 Transcribed: 08/15/2007 04:50 AMK Procedure Note Kristan Salomon - 08/15/2007 [facility] [address] [place], [place] [address] Admit Date: 08/14/2007 KALYN HAWKINS Sex: F Admit Prov: SONIA VENTURA Date: 1950 Primary Care Prov: HAWA LUIS CMRN: [id number] Room: [facility] SSN: [id number] IMAGING SERVICES Ordering Prov: SONIA VENTURA Interpretation Left breast MRI-guided vacuum assisted core biopsy with tissuemarker placement and left breast full field digital diagnostic mammogramwith computer aided diagnosis. 08/14/2007 History: The patient has known left breast cancer. Patient has beenon neoadjuvant chemotherapy. The patient had an MRI performed on07/21/2007 which demonstrated a decrease in the size of the mass in theupper-outer quadrant. However, 3 satellite lesions were identified. The largestof which measured 6 to 7 mm and was located in the lower outer quadrantof the left breast. MRI guided core biopsy of this has been ordered. Technique: The risks and benefits of the procedure were discussedwith the patient. The patient had an opportunity to ask questions, all ofwhich were answered. The patient then gave written informed consent. The patientwas placed in a prone position on MRI table. Multisequence multiplanarbreast MRI was performed before and after the intravenous administration of14 ml of Optimark. The enhancing mass identified inferior to the patient'sknown breast cancer was identified. This area was targeted using MRIguidance. The skin over this region was prepped in the usual sterile fashion.Using 1% lidocaine without epinephrine, the skin and subcutaneous tissueswere anesthetized. Using MRI guidance, lesion was targeted from alateral approach. Six 9-gauge core biopsies were obtained. A post biopsy mammogram demonstrated complete resection of the mass.A tissue marker was placed at the site. Hemostasis was achieved. Asterile bandage was placed over the incision. The patient was brought instable condition to the mammography suite where a two-view left breast fullfield digital diagnostic mammogram was performed and compared with theprevious study dated 08/07/2007. The breast composition is heterogeneouslydense. The postbiopsy mammogram demonstrated placement of a clip inferior tothe patient's known carcinoma. Patient tolerated the procedure well andthere were no immediate complications. The patient was discharged fromthe department in stable condition. The patient was given verbal as wellas written postprocedure instructions. Impression: Technically successful left breast MRI guided core biopsy withtissue marker placement. Dictated by: KRISTAN SALOMON Electronically signed by: KRISTAN SALOMON 08/15/2007 14:31 Transcribed: 08/15/2007 04:50 AMK Sonia Ventura MD MR ORDERABLES Final Result * MAMMO DIGITAL DIAG UNI LEFT (08/14/2007 3:09 PM CDT) Anatomical Region Laterality Modality Breast Left Other 08/14/2007 3:09 PM CDT Narrative 08/18/2007 11:32 AM CDT [address] [address] Admit Date: 08/14/2007 KALYN HAWKINS Sex: F Admit Prov: SONIA VENTURA Date: 1950 Primary Care Prov: HAWA LUIS Tip CMRN: [id number] [facility]: [id number] IMAGING SERVICES Ordering Prov: SONIA VENTURA Accession Number: [id number] Addendum The pathology from the patient's recent left breast MRI guided core biopsy revealed invasive ductal carcinoma, low-grade; ductal carcinoma in situ, intermediate grade. This is malignant and concordant. Patient will be informed of the above findings by Dr. Sonia Ventura who will plan all further care of this patient. Assessment BIRADS: Post procedure mammograms for marker placement Recommendation: No recommendation required Dictated by: KRISTAN SALOMON Electronically signed by: KRISTAN SALOMON 08/18/2007 11:31 Transcribed: 08/18/2007 08:34 AMK Interpretation Left breast MRI-guided vacuum assisted core biopsy with tissue marker placement and left breast full field digital diagnostic mammogram with computer aided diagnosis. 08/14/2007 History: The patient has known left breast cancer. Patient has been on neoadjuvant chemotherapy. The patient had an MRI performed on 07/21/2007 which demonstrated a decrease in the size of the mass in the upper-outer quadrant. However, 3 satellite lesions were identified. The largest of which measured 6 to 7 mm and was located in the lower outer quadrant of the left breast. MRI guided core biopsy of this has been ordered. Technique: The risks and benefits of the procedure were discussed with the patient. The patient had an opportunity to ask questions, all of which were answered. The patient then gave written informed consent. The patient was placed in a prone position on MRI table. Multisequence multiplanar breast MRI was performed before and after the intravenous administration of 14 ml of Optimark. The enhancing mass identified inferior to the patient's known breast cancer was identified. This area was targeted using MRI guidance. The skin over this region was prepped in the usual sterile fashion. Using 1% lidocaine without epinephrine, the skin and subcutaneous tissues were anesthetized. Using MRI guidance, lesion was targeted from a lateral approach. Six 9-gauge core biopsies were obtained. A post biopsy mammogram demonstrated complete resection of the mass. A tissue marker was placed at the site. Hemostasis was achieved. A sterile bandage was placed over the incision. The patient was brought in stable condition to the mammography suite where a two-view left breast full field digital diagnostic mammogram was performed and compared with the previous study dated 08/07/2007. The breast composition is heterogeneously dense. The postbiopsy mammogram demonstrated placement of a clip inferior to the patient's known carcinoma. Patient tolerated the procedure well and there were no immediate complications. The patient was discharged from the department in stable condition. The patient was given verbal as well as written postprocedure instructions. Impression: Technically successful left breast MRI guided core biopsy with tissue marker placement. Report revised on 08/18/2007 11:31:49 AM by KRISTAN SALOMON Assessment BIRADS: Post procedure mammograms for marker placement Recommendation: No recommendation required Dictated by: KRISTAN SALOMON Electronically signed by: KRISTAN SALOMON 08/15/2007 14:31 Transcribed: 08/15/2007 04:50 AMK Procedure Note Kristan Salomon - 08/18/2007 [facility] [address], [place] [address] Admit Date: 08/14/2007 KALYN HAWKINS: F Admit Prov: SONIA VENTURA Date: 1950 Primary Care Prov: HAWA LUIS CMRN: [id number] [facility]: [id number] IMAGING SERVICES Ordering Prov: SONIA VENTURA Addendum The pathology from the patient's recent left breast MRI guided corebiopsy revealed invasive ductal carcinoma, low-grade; ductal carcinoma insitu, intermediate grade. This is malignant and concordant. Patient willbe informed of the above findings by Dr. Sonia Ventura who will planall further care of this patient. Assessment BIRADS: Post procedure mammograms for marker placement Recommendation: No recommendation required Dictated by: KRISTAN SALOMON Electronically signed by: KRISTAN SALOMON 08/18/2007 11:31 Transcribed: 08/18/2007 08:34 AMK Interpretation Left breast MRI-guided vacuum assisted core biopsy with tissuemarker placement and left breast full field digital diagnostic mammogramwith computer aided diagnosis. 08/14/2007 History: The patient has known left breast cancer. Patient has beenon neoadjuvant chemotherapy. The patient had an MRI performed on07/21/2007 which demonstrated a decrease in the size of the mass in theupper-outer quadrant. However, 3 satellite lesions were identified. The largestof which measured 6 to 7 mm and was located in the lower outer quadrantof the left breast. MRI guided core biopsy of this has been ordered. Technique: The risks and benefits of the procedure were discussedwith the patient. The patient had an opportunity to ask questions, all ofwhich were answered. The patient then gave written informed consent. The patientwas placed in a prone position on MRI table. Multisequence multiplanarbreast MRI was performed before and after the intravenous administration of14 ml of Optimark. The enhancing mass identified inferior to the patient'sknown breast cancer was identified. This area was targeted using MRIguidance. The skin over this region was prepped in the usual sterile fashion.Using 1% lidocaine without epinephrine, the skin and subcutaneous tissueswere anesthetized. Using MRI guidance, lesion was targeted from alateral approach. Six 9-gauge core biopsies were obtained. A post biopsy mammogram demonstrated complete resection of the mass.A tissue marker was placed at the site. Hemostasis was achieved. Asterile bandage was placed over the incision. The patient was brought instable condition to the mammography suite where a two-view left breast fullfield digital diagnostic mammogram was performed and compared with theprevious study dated 08/07/2007. The breast composition is heterogeneouslydense. The postbiopsy mammogram demonstrated placement of a clip inferior tothe patient's known carcinoma. Patient tolerated the procedure well andthere were no immediate complications. The patient was discharged fromthe department in stable condition. The patient was given verbal as wellas written postprocedure instructions. Impression: Technically successful left breast MRI guided core biopsy withtissue marker placement. Report revised on 08/18/2007 11:31:49 AM by KRISTAN SALOMON Assessment BIRADS: Post procedure mammograms for marker placement Recommendation: No recommendation required Dictated by: KRISTAN SALOMON Electronically signed by: KRISTAN SALOMON 08/15/2007 14:31 Transcribed: 08/15/2007 04:50 AMK Sonia Ventura MD MAMMO ORDERABLES Edited documented in this encounter Visit Diagnoses Diagnosis Malignant neoplasm of breast (female), unspecified site Malignant neoplasm of lower-outer quadrant of female breast (CMS/HCC) Malignant neoplasm of lower-outer quadrant of female breast documented in this encounter Care Teams Real Estate Attorney Relationship Specialty Start Date End Date Hawa Luis MD [address] [address] [place] [address] PCP - General 05/01/04 07/18/22 documented as of this encounter
--- OUTSIDE RECORDS SUMMARY | 2024-08-17 13:22 | XMS_ITS | Encounter Summary ---
Author Organization [facility] Address [address] [place] [address] Care Team Providers Care School Health Aide Name Role Phone Hawa Fuentes MD Primary Care Provider [phone] Encounter Details Date Type Department Care Team (Late st Contact Info) Description 07/21/2007 Outpatient Historical [facility] MRI DEPT Sonia Barahona MD [address] [place] [address] [address] [address] Malignant Neoplasm of Breast (Female), Unspecified Site (CMS/HCC) Social History Tobacco Use Types Packs/Day Years Used Date Smoking Tobacco: Never Assessed Comments Unknown Sex and Gender Information Value Date Recorded Sex Assigned at Not on file 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 Gender Identity Not on file Sexual Orientation Not on file documented as of this encounter Plan of Treatment Upcoming Encounters Date Type Department Care Team (Late Contact Info) Description 07/21/2025 12:05 PM CDT Appointment [facility] Laboratory Services [facility] [address], [address] [place] [address] Vipul Rizvi MD [address] [place] [address] 07/21/2025 1:05 PM CDT Office Visit [facility] Oncology and Hematology [facility] [address] [place] [address] Vipul Rizvi MD [address] [place] [address] documented as of this encounter Procedures Procedure Name Priority Date/Time Associated Diagnosis Comments MRI BREAST W CONTRAST BILAT Timed Study 07/21/2007 9:16 AM CDT documented in this encounter Results * MRI BREAST W CONTRAST BILAT (07/21/2007 9:16 AM CDT) Anatomical Region Laterality Modality Breast Bilateral Other 07/21/2007 9:16 AM CDT Narrative 07/21/2007 1:10 PM CDT [facility] [place], [place] [address], [place] [address] Admit Date: 07/21/2007 KALYN DUFF Sex: F Admit Prov: SONIA BARAHONA Date: 1950 Primary Care Prov: HAWA FUENTES CMRN: [id number] Room: [facility] SSN: [id number] IMAGING SERVICES Ordering Prov: SONIA BARAHONA Accession Number: [id number] Interpretation Bilateral dynamic breast MRI, with IV contrast 07/21/2007 History: Breast cancer, follow up after neoadjuvant chemotherapy. Bilateral dynamic breast MR was performed. 13 ml of Optimark was injected intravenously without complications. Comparison is made with patient's previous MRI dated 02/07/2007. The previously seen large abnormally enhancing mass in the upper outer left breast has decreased in size considerably after chemotherapy. The central core of malignant type enhancement now measures approximately 1 cm. The total volume of the enhancing mass now measures approximately 1.9 x 1.4 x 1.8 cm. On the prior exam, multiple surrounding enhancing nodules are also identified. On today's examination, 3 small enhancing nodules persist. There is a small 5 mm enhancing nodule just anterior to the dominant mass, from the dominant mass by approximately 5 mm. On today's exam, this tiny nodule demonstrates more benign type enhancement. A second satellite nodule in the lower outer posterior breast persists. This measures approximately 6-7 mm in diameter and continues to show malignant type enhancement kinetics . A small 4-5 mm nodule with intermediate enhancement persists in the subareolar region. Other previously seen enhancing nodules are no longer identified. No new masses are identified in the left breast. The skin nipple and areolar complex are unremarkable. Adenopathy is not identified. As was demonstrated on the prior exam, the right breast remains heterogeneously dense but no enhancing masses are identified. No areas of distortion are identified. The skin and nipple and areolar complex is normal. No axillary adenopathy is identified. Chest wall is unremarkable. Impression: Left breast: Significantly improved postchemotherapy. Primary dominant mass now measures slightly less than 2 cm in diameter. Three small satellite nodules persist. Right breast: Negative/stable. No suspicious masses identified. Overall assessment: BI-RADS category 6, biopsy-proven malignancy. Reviewing physicians: Moira Cárdenas MD; Moira Handy MD Dictated by: JESSY CÁRDENAS Electronically signed by: JESSY CÁRDENAS 07/21/2007 13:10 Transcribed: 07/21/2007 12:30 AMK Procedure Note Jessy Cárdenas - 07/21/2007 [facility] [place], [place] [address] [place], [place] [address] Admit Date: 07/21/2007 KALYN DUFF Sex: F Admit Prov: SONIA BARAHONA Date: 1950 Primary Care Prov: HAWA FUENTES CMRN: [id number] Room: [facility] SSN: [id number] IMAGING SERVICES Ordering Prov: SONIA BARAHONA Interpretation Bilateral dynamic breast MRI, with IV contrast 07/21/2007 History: Breast cancer, follow up after neoadjuvant chemotherapy. Bilateral dynamic breast MR was performed. 13 ml of Optimark wasinjected intravenously without complications. Comparison is made withpatient's previous MRI dated 02/07/2007. The previously seen large abnormally enhancing mass in the upperouter left breast has decreased in size considerably after chemotherapy. Thecentral core of malignant type enhancement now measures approximately 1 cm.The total volume of the enhancing mass now measures approximately 1.9 x1.4 x 1.8 cm. On the prior exam, multiple surrounding enhancing nodules arealso identified. On today's examination, 3 small enhancing nodulespersist. There is a small 5 mm enhancing nodule just anterior to the dominantmass, from the dominant mass by approximately 5 mm. On today'sexam, this tiny nodule demonstrates more benign type enhancement. Asecond satellite nodule in the lower outer posterior breast persists. This measures approximately 6-7 mm in diameter and continues to showmalignant type enhancement kinetics . A small 4-5 mm nodule with intermediate enhancement persists in the subareolar region. Other previouslyseen enhancing nodules are no longer identified. No new masses areidentified in the left breast. The skin nipple and areolar complex areunremarkable. Adenopathy is not identified. As was demonstrated on the prior exam, the right breast remains heterogeneously dense but no enhancing masses are identified. Noareas of distortion are identified. The skin and nipple and areolar complexis normal. No axillary adenopathy is identified. Chest wall is unremarkable. Impression: Left breast: Significantly improved postchemotherapy. Primarydominant mass now measures slightly less than 2 cm in diameter. Three small satellite nodules persist. Right breast: Negative/stable. No suspicious masses identified. Overall assessment: BI-RADS category 6, biopsy-proven malignancy. Reviewing physicians: Moira Cárdenas MD; Moira Handy MD Dictated by: JESSY CÁRDENAS Electronically signed by: JESSY CÁRDENAS 07/21/2007 13:10 Transcribed: 07/21/2007 12:30 AMK us Sonia Barahona MD MR ORDERABLES Final Result documented in this encounter Visit Diagnoses Diagnosis Malignant neoplasm of breast (female), unspecified site documented in this encounter Care Teams School Health Aide Relationship Specialty Start Date End Date Hawa Fuentes MD [address] [place] [address] PCP - General 05/01/04 07/18/22 documented as of this encounter
--- OUTSIDE RECORDS SUMMARY | 2024-08-17 13:23 | XMS_ITS | Encounter Summary ---
Author Organization [facility] Address [address] [place] [address] Care Team Providers Care Shaper Operator Name Role Phone Tam Luis MD Primary Care Provider [phone] Encounter Details Date Type Department Care Team (Late Contact Info) Description 05/02/2004 Outpatient Historical [facility] Adult Hospitalists [facility] [address] [place] [address] [place] [address] [facility] [address] [place] [address] Social History Tobacco Use Types Packs/Day Years Used Date Smoking Tobacco: Never Assessed Comments Unknown Sex and Gender Information Value Date Recorded Sex Assigned at Not on file 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 Gender Identity Not on file Sexual Orientation Not on file documented as of this encounter Plan of Treatment Upcoming Encounters Date Type Department Care Team (Late Contact Info) Description 07/21/2025 12:05 PM CDT Appointment [facility] Laboratory Services Daniel Cartwright [facility] [address], [address] [place] [address] iVpul Rizvi MD [address] [place] [address] 07/21/2025 1:05 PM CDT Office Visit [facility] Oncology and Hematology [facility] [address] [place] [address] Vipul Rizvi MD [address] [place] [address] documented as of this encounter Visit Diagnoses Not on filedocumented in this encounter Care Teams Shaper Operator Relationship Specialty Start Date End Date Tam Luis MD [address] [place] [address] PCP - General 05/01/04 07/18/22 documented as of this encounter
--- OUTSIDE RECORDS SUMMARY | 2024-08-17 13:23 | XMS_ITS | Encounter Summary ---
Author Organization [facility] Address [address] [place] [address] Care Team Providers Care Survival Equipment Repairer Name Role Phone Tam Luis MD Primary Care Provider [phone] Encounter Details Date Type Department Care Team (Late st Contact Info) Description 02/10/2007 Outpatient Historical [facility] [place] [address] [address] [place] [address] Sonia Barahona MD [address] [place] [address] Malignant Neoplasm of Breast (Female), Unspecified Site (CMS/HCC) Social History Tobacco Use Types Packs/Day Years Used Date Smoking Tobacco: Never Assessed Comments Unknown Sex and Gender Information Value Date Recorded Sex Assigned at Not on file 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 Gender Identity Not on file Sexual Orientation Not on file documented as of this encounter Plan of Treatment Upcoming Encounters Date Type Department Care Team (Late st Contact Info) Description 07/21/2025 12:05 PM CDT Appointment [facility] Laboratory Services Daniel Cartwright [facility] [address] [place] [address] Vipul Rizvi MD [address] [place] [address] 07/21/2025 1:05 PM CDT Office Visit [facility] Oncology and Hematology [facility] [address] [place] [address] Vipul Rizvi MD [address] [place], [place] [phone] documented as of this encounter Visit Diagnoses Diagnosis Malignant neoplasm of breast (female), unspecified site documented in this encounter Care Teams Survival Equipment Repairer Relationship Specialty Start Date End Date Tam Luis MD [address] [place] [address] PCP - General 05/01/04 07/18/22 documented as of this encounter
--- OUTSIDE RECORDS SUMMARY | 2024-08-17 13:23 | XMS_ITS | Encounter Summary ---
Author Organization [facility] Address 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 Gender Identity Not on file Sexual Orientation Not on file documented as of this encounter Plan of Treatment Upcoming Encounters Date Type Department Care Team (Late st Contact Info) Description 07/21/2025 12:05 PM CDT Appointment [facility] Laboratory Services [facility] [address], [place] [address] [place] [address] Vipul Rizvi MD [address] [place] [phone] 07/21/2025 1:05 PM CDT Office Visit [facility] Oncology and Hematology [facility] [address] [address] Vipul Rizvi MD [address] [place] [phone] documented as of this encounter Visit Diagnoses Diagnosis Malignant neoplasm of breast (female), unspecified site documented in this encounter Care Teams Physician Pediatrician Relationship Specialty Start Date End Date Tam Luis MD [address] [place] [address] PCP - General 05/01/04 07/18/22 documented as of this encounter
--- OUTSIDE RECORDS SUMMARY | 2024-08-17 13:23 | XMS_ITS | Encounter Summary ---
Author Organization [facility] Address 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 Gender Identity Not on file Sexual Orientation Not on file documented as of this encounter Plan of Treatment Upcoming Encounters Date Type Department Care Team (Late st Contact Info) Description 07/21/2025 12:05 PM CDT Appointment [facility] Laboratory Services [facility] [address], [place] [address] [place] [address] Vipul Rizvi MD [address] [place] [phone] 07/21/2025 1:05 PM CDT Office Visit [facility] Oncology and Hematology [facility] [address] [address] Vipul Rizvi MD [address] [place] [phone] documented as of this encounter Procedures Procedure Name Priority Date/Time Associated Diagnosis Comments NM BONE SCAN WHOLE BODY Timed Study 05/13/2008 9:57 AM CDT documented in this encounter Results * NM BONE SCAN WHOLE BODY (05/13/2008 9:57 AM CDT) Anatomical Region Laterality Modality Other 05/13/2008 9:57 AM CDT Narrative 05/13/2008 2:13 PM CDT [place] [address] [place], [place] [address] Admit Date: 05/13/2008 ROSS, MELANIE Clarke Sex: F Admit Prov: CARLOS RIZVI Date: 1950 Primary Care Prov: HAWA FUENTES CMRN: [id number] [id number] [facility] Ordering Prov: N/A Accession Number: [id number] Interpretation Whole-body bone scan History: Restaging of breast cancer. Procedure: 22.7 mCi 99m-Tc MDP with anterior and posterior whole body images obtained at 3 hours. Findings: The kidneys are well visualized. Mild degenerative changes of L3- L5. No osseous metastatic disease. Impression: No osseous metastatic disease. Degenerative changes of the lower lumbar spine. . Dictated by: BRIJESH NINA 05/13/2008 14:12 Electronically signed by: BRIJESH NINA 05/13/2008 14:12 Procedure Note Brijesh Nina MD - 05/13/2008 [address] [address] [place], [place] [address] Admit Date: 05/13/2008 ROSS, MELANIE Clarke Sex: F Admit Prov: CARLOS RIZVI Date: 1950 Primary Care Prov: HAWA FUENTES CMRN: [id number] [id number] IM[facility]ING SERVICES Ordering Prov: N/A Interpretation Whole-body bone scan History: Restaging of breast cancer. Procedure: 22.7 mCi 99m-Tc MDP with anterior and posterior wholebody images obtained at 3 hours. Findings: The kidneys are well visualized. Mild degenerative changesof L3- L5. No osseous metastatic disease. Impression: No osseous metastatic disease. Degenerative changes ofthe lower lumbar spine. . Dictated by: BRIJESH NINA 05/13/2008 14:12 Electronically signed by: BRIJESH NINA 05/13/2008 14:12 Hsiaoou Hu NM ORDERABLES Final Result documented in this encounter Visit Diagnoses Diagnosis Malignant neoplasm of breast (female), unspecified site documented in this encounter Care Teams Health Actuary Relationship Specialty Start Date End Date Hawa Fuentes MD [address] [place] [address] PCP - General 05/01/04 07/18/22 documented as of this encounter
--- OUTSIDE RECORDS SUMMARY | 2024-08-17 13:23 | XMS_ITS | Encounter Summary ---
Author Organization [facility] Address [address] [place] [address] Care Team Providers Care Plant Operations Vice President Name Role Phone Tam Luis MD Primary Care Provider [phone] Encounter Details Date Type Department Care Team (Late Contact Info) Description 05/01/2004 Outpatient Historical [facility] Adult Hospitalists [facility] [address] [place] [address] [place] [address] [facility] [address] [place] [address] Social History Tobacco Use Types Packs/Day Years Used Date Smoking Tobacco: Never Assessed Comments Unknown Sex and Gender Information Value Date Recorded Sex Assigned at Not on file 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 Gender Identity Not on file Sexual Orientation Not on file documented as of this encounter Plan of Treatment Upcoming Encounters Date Type Department Care Team (Late Contact Info) Description 07/21/2025 12:05 PM CDT Appointment [facility] Laboratory Services Daniel Cartwright [facility] [address] [place] [address] Vipul Rizvi MD [address] [place] [address] 07/21/2025 1:05 PM CDT Office Visit [facility] Oncology and Hematology [facility] [address] [place] [address] Vipul Rizvi MD [address] [place] [address] documented as of this encounter Visit Diagnoses Not on filedocumented in this encounter Care Teams Plant Operations Vice President Relationship Specialty Start Date End Date Tam Luis MD [address] [place] [address] PCP - General 05/01/04 07/18/22 documented as of this encounter
--- OUTSIDE RECORDS SUMMARY | 2024-08-17 13:23 | XMS_ITS | Encounter Summary ---
Author Organization [facility] Address [address] [place] [address] Care Team Providers Care Risk Assessor Name Role Phone Tam Luis MD Primary Care Provider [phone] Encounter Details Date Type Department Care Team (Late Contact Info) Description 05/03/2004 Outpatient Historical 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 Laboratory Services [facility] [address] [place] [address] Vipul Rizvi MD [address] [place] [address] 07/21/2025 1:05 PM CDT Office Visit [facility] Oncology and Hematology [facility] [address] [place] [address] Vipul Rizvi MD [address] [place] [address] documented as of this encounter Visit Diagnoses Not on filedocumented in this encounter Care Teams Risk Assessor Relationship Specialty Start Date End Date Tam Luis MD [address] [place] [address] PCP - General 05/01/04 07/18/22 documented as of this encounter
--- OUTSIDE RECORDS SUMMARY | 2024-08-17 13:23 | XMS_ITS | Encounter Summary ---
Author Organization [facility] Address 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, [place] [address] [place] [address] Vipul Rizvi MD [address] [place] [address] 07/21/2025 1:05 PM CDT Office Visit [facility] Oncology and Hematology [facility] [address] [address] Vipul Rizvi MD [address] [place] [address] documented as of this encounter Procedures Procedure Name Priority Date/Time Associated Diagnosis Comments CBC WITH DIFFERENTIAL Routine 03/10/2007 1:34 PM BILLET WORKER CBC WITH DIFFERENTIAL Routine 03/10/2007 1:34 PM BILLET WORKER COMPREHENSIVE METABOLIC PANEL Routine 03/10/2007 1:34 PM BILLET WORKER CBC WITH DIFFERENTIAL Routine 03/03/2007 7:36 AM BILLET WORKER CBC WITH DIFFERENTIAL Routine 03/03/2007 7:36 AM BILLET WORKER COMPREHENSIVE METABOLIC PANEL Routine 03/03/2007 7:36 AM BILLET WORKER documented in this encounter Results * (ABNORMAL) CBC WITH DIFFERENTIAL (03/10/2007 1:34 PM BILLET WORKER) NEUTROPHILS 72(H) 45 - 70 % INTERFAC E SYSTEM LYMPHOCYTES 19 16 - 45 % INTERFAC E SYSTEM MONOCYTES 8 3 - 13 % INTERFACE SYSTEM EOSINOPHILS 1 0 - 7 % INTERFAC E SYSTEM BASOPHILS 1 0 - 2 % INTERFACE SYSTEM NEUTROPHIL ABSOLUTE 4.50 1.90 - 7.00 K/uL INTERFACE SYSTEM LYMPHOCYTE ABSOLUTE 1.15 0.70 - 4.50 K/uL INTERFACE SYSTEM MONOCYTE ABSOLUTE 0.49 0.10 - 1.30 K/uL INTERFACE SYSTEM EOSINOPHIL ABSOLUTE 0.04 0.00 - 0.70 K/uL INTERFACE SYSTEM BASOPHILS ABSOLUTE 0.04 0.00 - 0.20 K/uL INTERFACE SYSTEM 03/10/2007 1:34 PM BILLET WORKER Hsiaoou Hu HEMATOLOGY ORDERABLES Edited INTERFACE SYSTEM Refer to clinic/hospital department * (ABNORMAL) CBC WITH DIFFERENTIAL (03/10/2007 1:34 PM BILLET WORKER) WBC 6.2 4.0 - 9.8 K/uL INTERFACE SYSTEM RBC 3.53(L) 3.90 - 4.90 M/uL INTERFACE SYSTEM HEMOGLOBIN 11.4(L) 11.8 - 14.8 g/dL INTERFACE SYSTEM HEMATOCRIT 34.0(L) 35.5 - 44.0 % INTERFACE SYSTEM MCV 96.3 82.0 - 99.0 fL INTERFACE SYSTEM MCH 32.3 27.2 - 32.6 pg INTERFACE SYSTEM MCHC 33.5 31.5 - 35.5 % INTERFACE SYSTEM RDW 12.1 11.5 - 14.5 % INTERFACE SYSTEM RDW-STDEV 40.6 37.1 - 48.7 fL INTERFACE SYSTEM PLATELETS 424(H) 140 - 350 K/uL INTERFACE SYSTEM MPV 9.5 9.3 - 12.4 fL INTERFACE SYSTEM 03/10/2007 1:34 PM BILLET WORKER Hsiaoou Hu HEMATOLOGY ORDERABLES Edited INTERFACE SYSTEM Refer to clinic/hospital department * (ABNORMAL) COMPREHENSIVE METABOLIC PANEL (03/10/2007 1:34 PM BILLET WORKER) GLUCOSE 93 65 - 99 mg/dL INTERFACE SYSTEM CREATININE 0.70 0.51 - 0.95 mg/dL INTERFACE SYSTEM CALCIUM 9.0 8.4 - 10.2 mg/dL INTERFACE SYSTEM ALKALINE PHOSPHATASE 79 35 - 104 U/L INTERFACE SYSTEM AST 24 12 - 32 U/L INTERFACE SYSTEM ALT 39(H) 0 - 31 U/L INTERFACE SYSTEM TOTAL PROTEIN 7.0 6.3 - 8.6 g/dL INTERFACE SYSTEM ALBUMIN 4.5 3.4 - 4.8 g/dL INTERFACE SYSTEM BILIRUBIN TOTAL 0.3 0.2 - 1.0 mg/dL INTERFACE SYSTEM BUN 15 6 - 20 mg/dL INTERFACE SYSTEM SODIUM 142 135 - 145 mmol/L INTERFACE SYSTEM POTASSIUM 3.9 3.5 - 4.9 mmol/L INTERFACE SYSTEM CHLORIDE 105 96 - 108 mmol/L INTERFACE SYSTEM CO2 27 22 - 30 mmol/L INTERFACE SYSTEM GFR, >60 >=60 mL/min/1.7 sq meter INTERFACE SYSTEM GFR >60 >=60 mL/min/1.7 sq meter INTERFACE SYSTEM Comment: Estimated GFR rate interpretative information for both Americans and non- Americans is available on the [facility] Intranet at: [email or web address] Select: Lab Policies and Procedures Select: Reference Ranges - GFR 03/10/2007 1:34 PM BILLET WORKER [facility] CHEMISTRY ORDERABLES Edited INTERFACE SYSTEM Refer to clinic/hospital department * (ABNORMAL) CBC WITH DIFFERENTIAL (03/03/2007 7:36 AM BILLET WORKER) NEUTROPHIL ABSOLUTE 5.40 1.90 - 7.00 K/uL INTERFACE SYSTEM LYMPHOCYTE ABSOLUTE 1.89 0.70 - 4.50 K/uL INTERFACE SYSTEM MONOCYTE ABSOLUTE 0.90 0.10 - 1.30 K/uL INTERFACE SYSTEM EOSINOPHIL ABSOLUTE 0.00 0.00 - 0.70 K/uL INTERFACE SYSTEM BASOPHILS ABSOLUTE 0.09 0.00 - 0.20 K/uL INTERFACE SYSTEM NEUTROPHILS, SEG 57 45 - 70 % INT ERFACE SYSTEM BANDS 3 0 - 5 % INTERFACE SYSTEM LYMPHOCYTES 21 16 - 45 % INTERFAC E SYSTEM MONOCYTES 10 3 - 13 % INTERFACE SYSTEM EOSINOPHILS 0 0 - 7 % INTERFAC E SYSTEM BASOPHILS 1 0 - 2 % INTERFACE SYSTEM METAMYELOCYTE 3(H) <=0 % INTERF KATHRYN SYSTEM MYELOCYTES 5(H) <=0 % INTERFACE SYSTEM PLATELET EST. Consistent w/ count Normal INTERFACE SYSTEM RBC MORPHOLOGY Normal Normal INTER FACE SYSTEM TOXIC GRANULATION Slight IN TERFACE SYSTEM 03/03/2007 7:36 AM BILLET WORKER [facility] HEMATOLOGY ORDERABLES Edited Performing Organization Address [facility] de Phone Number INTERFACE SYSTEM Refer to clinic/hospital department * (ABNORMAL) CBC WITH DIFFERENTIAL (03/03/2007 7:36 AM BILLET WORKER) WBC 9.0 4.0 - 9.8 K/uL INTERFACE SYSTEM RBC 3.64(L) 3.90 - 4.90 M/uL INTERFACE SYSTEM HEMOGLOBIN 11.6(L) 11.8 - 14.8 g/dL INTERFACE SYSTEM HEMATOCRIT 35.4(L) 35.5 - 44.0 % INTERFACE SYSTEM MCV 97.3 82.0 - 99.0 fL INTERFACE SYSTEM MCH 31.9 27.2 - 32.6 pg INTERFACE SYSTEM MCHC 32.8 31.5 - 35.5 % INTERFACE SYSTEM RDW 11.5 11.5 - 14.5 % INTERFACE SYSTEM RDW-STDEV 38.7 37.1 - 48.7 fL INTERFACE SYSTEM PLATELETS 286 140 - 350 K/uL INTERFACE SYSTEM MPV 9.0(L) 9.3 - 12.4 fL INTERFACE SYSTEM 03/03/2007 7:36 AM BILLET WORKER Hsiaoou Hu HEMATOLOGY ORDERABLES Edited INTERFACE SYSTEM Refer to clinic/hospital department * (ABNORMAL) COMPREHENSIVE METABOLIC PANEL (03/03/2007 7:36 AM BILLET WORKER) GLUCOSE 98 65 - 99 mg/dL INTERFACE SYSTEM CREATININE 0.69 0.51 - 0.95 mg/dL INTERFACE SYSTEM CALCIUM 8.4 8.4 - 10.2 mg/dL INTERFACE SYSTEM ALKALINE PHOSPHATASE 95 35 - 104 U/L INTERFACE SYSTEM AST 24 12 - 32 U/L INTERFACE SYSTEM ALT 33(H) 0 - 31 U/L INTERFACE SYSTEM TOTAL PROTEIN 6.8 6.3 - 8.6 g/dL INTERFACE SYSTEM ALBUMIN 4.3 3.4 - 4.8 g/dL INTERFACE SYSTEM BILIRUBIN TOTAL 0.1(L) 0.2 - 1.0 mg/dL INTERFACE SYSTEM BUN 12 6 - 20 mg/dL INTERFACE SYSTEM SODIUM 139 135 - 145 mmol/L INTERFACE SYSTEM POTASSIUM 3.5 3.5 - 4.9 mmol/L INTERFACE SYSTEM CHLORIDE 104 96 - 108 mmol/L INTERFACE SYSTEM CO2 29 22 - 30 mmol/L INTERFACE SYSTEM GFR, >60 >=60 mL/min/1. 7 sq meter INTERFACE SYSTEM GFR >60 >=60 mL/min/1. 7 sq meter INTERFACE SYSTEM Comment: Estimated GFR rate interpretative information for both Americans and non- Americans is available on the [facility] Intranet at: [email or web address] Select: Lab Policies and Procedures Select: Reference Ranges - GFR 03/03/2007 7:36 AM BILLET WORKER Hsiaoou Hu CHEMISTRY ORDERABLES Edited INTERFACE SYSTEM Refer to clinic/hospital department documented in this encounter Visit Diagnoses Diagnosis Malignant neoplasm of breast (female), unspecified site documented in this encounter Care Teams Optical Glass Wet Inspector Relationship Specialty Start Date End Date Tam Luis MD [address] [place] [address] PCP - General 05/01/04 07/18/22 documented as of this encounter
--- OUTSIDE RECORDS SUMMARY | 2024-08-17 13:23 | XMS_ITS | Encounter Summary ---
Author Organization [facility] Address [address] [place] [address] Care Team Providers Care Customer Experience Leader Name Role Phone Tam Luis MD Primary Care Provider Encounter Details Date Type Department Care Team (Latest Contact Info) Description 12/26/2007 Outpatient Historical [facility] Cem Barrett MD [address] [place] [address] Malignant Neoplasm of Breast (Female), Unspecified Site (CMS/HCC) Social History Tobacco Use Types Packs/Day Years Used Date Smoking Tobacco: Never Assessed Comments Unknown Sex and Gender Information Value Date Recorded Sex Assigned at Not on file Legal Sex Female 3:59 AM FIGHTING VEHICLE SYSTEMS MAINTAINER Gender Identity Not on file Sexual Orientation Not on file documented as of this encounter Plan of Treatment Upcoming Encounters Date Type Department Care Team (Late st Contact Info) Description 07/21/2025 12:05 PM CDT Appointment [facility] Laboratory Services [facility] [address], [address] [place] [address] Vipul Rizvi MD [address] [place] [address] 07/21/2025 1:05 PM CDT Office Visit [facility] Oncology and Hematology [facility] [address] [place] [address] Vipul Rizvi MD [address] [place], [place] [id number] documented as of this encounter Procedures Procedure Name Priority Date/Time Associated Diagnosis Comments TYPE AND SCREEN Routine 01/13/2008 8:12 AM FIGHTING VEHICLE SYSTEMS MAINTAINER HEMOGLOBIN AND HEMATOCRIT Routine 12/26/2007 8:22 AM CDT documented in this encounter Results * TYPE AND SCREEN (01/13/2008 8:12 AM FIGHTING VEHICLE SYSTEMS MAINTAINER) HISTORY CHECK History Checked [facility] SPECIMEN LIFE 3 days from drawdate [facility] ABO/RH TYPE A Positive [facility] ANTIBODY SCREEN Negative [facility] Blood specimen (specimen) 01/13/2008 8:12 AM FIGHTING VEHICLE SYSTEMS MAINTAINER Cem Barrett MD BLOOD BANK ORDERABLES Edited Performing Organization Address [facility] de Phone Number INTERFACE SYSTEM Refer to clinic/hospital department [facility] CLIA# [id number] [address] [place] [address] * HEMOGLOBIN AND HEMATOCRIT (12/26/2007 8:22 AM CDT) HEMATOCRIT 37.5 35.5 - 44.0 % [facility] HEMOGLOBIN 12.6 11.8 - 14.8 g/dL [facility] Blood specimen (specimen) 12/26/2007 8:22 AM CDT 12/26/2007 10:20 AM CDT Cem Barrett MD HEMATOLOGY ORDERABLES Final Result Performing Organization Address [facility] de Phone Number INTERFACE SYSTEM Refer to clinic/hospital department [facility] CLIA# [id number] [address] [place] [address] documented in this encounter Visit Diagnoses Diagnosis Malignant neoplasm of breast (female), unspecified site documented in this encounter Care Teams Customer Experience Leader Relationship Specialty Start Date End Date Tam Luis MD [address] [place] [id number] PCP - General 05/01/04 07/18/22 documented as of this encounter
--- OUTSIDE RECORDS SUMMARY | 2024-08-17 13:23 | XMS_ITS | Encounter Summary ---
Author Organization [facility] Address [address] [place] [address] Care Team Providers Care Train Operations Supervisor Name Role Phone Tam Luis MD Primary Care Provider [phone] Encounter Details Date Type Department Care Team (Late st Contact Info) Description 02/03/2007 Outpatient Historical [facility] [address] Sonia Barahona MD [address] [place] [address] [address] [address] Lump or Mass in Breast Social History Tobacco Use Types Packs/Day Years Used Date Smoking Tobacco: Never Assessed Comments Unknown Sex and Gender Information Value Date Recorded Sex Assigned at Not on file Legal Sex Female 3:59 AM ON SITE COORDINATOR Gender Identity Not on file Sexual Orientation Not on file documented as of this encounter Plan of Treatment Upcoming Encounters Date Type Department Care Team (Late st Contact Info) Description 07/21/2025 12:05 PM CDT Appointment [facility] Laboratory Services [facility] [address] [place] [address] Vipul Rizvi MD [address] [place] [address] 07/21/2025 1:05 PM CDT Office Visit [facility] Oncology and Hematology [facility] [address] [place] [address] Vipul Rizvi MD [address] [place] [address] documented as of this encounter Visit Diagnoses Diagnosis Lump or mass in breast documented in this encounter Care Teams Train Operations Supervisor Relationship Specialty Start Date End Date Tam Luis MD [address] [address] PCP - General 05/01/04 07/18/22 documented as of this encounter
--- OUTSIDE RECORDS SUMMARY | 2024-08-17 13:23 | XMS_ITS | Encounter Summary ---
Author Organization [facility] Address [address] [place] [address] Care Team Providers Care J2Ee Engineer Name Role Phone Tam Luis MD Primary Care Provider [phone] Encounter Details Date Type Department Care Team (Latest Contact Info) Description 02/12/2007 Outpatient Historical [facility] Yousif Rizvi Malignant Neoplasm of Breast (Female), Unspecified Site (CMS/HCC) Social History Tobacco Use Types Packs/Day Years Used Date Smoking Tobacco: Never Assessed Comments Unknown Sex and Gender Information Value Date Recorded Sex Assigned at Not on file Legal Sex Female 3:59 AM FACILITIES MAINTENANCE MANAGER Gender Identity Not on file Sexual Orientation Not on file documented as of this encounter Plan of Treatment Upcoming Encounters Date Type Department Care Team (Late st Contact Info) Description 07/21/2025 12:05 PM CDT Appointment [facility] Laboratory Services [facility] [address], [place] [address] [place] [address] Vipul Rizvi MD [address] [place] [phone] 07/21/2025 1:05 PM CDT Office Visit [facility] Oncology and Hematology [facility] [address] [address] Vipul Rizvi MD [address] [place] [id number] documented as of this encounter Visit Diagnoses Diagnosis Malignant neoplasm of breast (female), unspecified site documented in this encounter Care Teams J2Ee Engineer Relationship Specialty Start Date End Date Tam Luis MD [address] [place] [address] PCP - General 05/01/04 07/18/22 documented as of this encounter
--- OUTSIDE RECORDS SUMMARY | 2024-08-17 13:23 | XMS_ITS | Encounter Summary ---
Author Organization [facility] Address [address] [place] [address] Care Team Providers Care Budget Accountant Name Role Phone Tam Luis MD Primary Care Provider [phone] Encounter Details Date Type Department Care Team (Late st Contact Info) Description 05/02/2004 Outpatient Historical [facility] Support Serv. ([facility]) [address] 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 Gender Identity Not on file Sexual Orientation Not on file documented as of this encounter Plan of Treatment Upcoming Encounters Date Type Department Care Team (Late st Contact Info) Description 07/21/2025 12:05 PM CDT Appointment [facility] Laboratory Services [facility] [address] [place] [address] Vipul Rizvi MD [address] [place] [address] 07/21/2025 1:05 PM CDT Office Visit [facility] Oncology and Hematology [facility] [address] [place] [address] Vipul Rizvi MD [address] [place] [address] documented as of this encounter Visit Diagnoses Not on filedocumented in this encounter Care Teams Budget Accountant Relationship Specialty Start Date End Date Tam Luis MD [address] [place] [address] PCP - General 05/01/04 07/18/22 documented as of this encounter
--- OUTSIDE RECORDS SUMMARY | 2024-08-17 13:23 | XMS_ITS | Encounter Summary ---
Author Organization [facility] Address [address] [place] [address] Care Team Providers Care Digital Advertising Analyst Name Role Phone Tam Luis MD Primary Care Provider [phone] Encounter Details Date Type Department Care Team (Latest Contact Info) Description 05/19/[address] 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, [id number] [place] [address] Vipul Rizvi MD [address] [place] [address] 07/21/2025 1:05 PM CDT Office Visit [facility] Oncology and Hematology [facility] [address] [address] Vipul Rizvi MD [address] [place] [address] documented as of this encounter Procedures Procedure Name Priority Date/Time Associated Diagnosis Comments CBC WITH DIFFERENTIAL Stat 06/16/2007 9:26 AM CDT COMPREHENSIVE METABOLIC PANEL Stat 06/16/2007 9:26 AM CDT CBC WITH DIFFERENTIAL Stat 06/02/2007 1:41 PM CDT COMPREHENSIVE METABOLIC PANEL Stat 06/02/2007 1:41 PM CDT CBC WITH DIFFERENTIAL Stat 2007 7:59 AM CDT COMPREHENSIVE METABOLIC PANEL Stat 2007 7:59 AM CDT documented in this encounter Results * (ABNORMAL) COMPREHENSIVE METABOLIC PANEL (06/16/2007 9:26 AM CDT) CALCIUM 8.5 8.4 - 10.2 mg/dL [facility] CHLORIDE 106 96 - 108 mmol/L [facility] ALBUMIN 4.2 3.4 - 4.8 g/dL [facility] CREATININE 0.54 0.51 - 0.95 mg/dL [facility] SODIUM 139 135 - 145 mmol/L [facility] ALT 29 0 - 31 U/L [facility] ALKALINE PHOSPHATASE 130(H) 35 - 104 U/L [facility] BILIRUBIN TOTAL 0.2 0.2 - 1.0 mg/dL [facility] CO2 25 22 - 30 mmol/L [facility] TOTAL PROTEIN 6.7 6.3 - 8.6 g/dL [facility] POTASSIUM 4.1 3.5 - 4.9 mmol/L [facility] GLUCOSE 93 65 - 99 mg/dL [facility] AST 19 12 - 32 U/L [facility] BUN 22(H) 6 - 20 mg/dL [facility] GFR, >60 >=60 mL/min/1. 7 sq meter [facility] GFR >60 >=60 mL/min/1. 7 sq meter [facility] Comment: Estimated GFR rate interpretative information for both Americans and non- Americans is available on the [facility] Intranet at: [email or web address] Select: Lab Policies and Procedures Select: Reference Ranges - GFR Blood specimen (specimen) 06/16/2007 9:26 AM CDT 06/16/2007 9:41 AM CDT Marquezrob Dmitri CHEMISTRY ORDERABLES Edited [facility] [address] [place] [address] * (ABNORMAL) CBC WITH DIFFERENTIAL (06/16/2007 9:26 AM CDT) WBC 8.6 4.0 - 9.8 K/uL [facility] MCH 32.9(H) 27.2 - 32.6 pg [facility] MPV 9.1(L) 9.3 - 12.4 fL [facility] HEMATOCRIT 35.6 35.5 - 44.0 % [facility] RDW-STDEV 46.0 37.1 - 48.7 fL [facility] RBC 3.53(L) 3.90 - 4.90 M/uL [facility] MCHC 32.6 31.5 - 35.5 % [facility] MCV 100.8(H) 82.0 - 99.0 fL [facility] PLATELETS 268 140 - 350 K/uL [facility] HEMOGLOBIN 11.6(L) 11.8 - 14.8 g/dL [facility] RDW 12.8 11.5 - 14.5 % [facility] BASOPHILS 0 0 - 2 % [facility] BASOPHILS ABSOLUTE 0.02 0.00 - 0.20 K/uL [facility] MONOCYTES 6 3 - 13 % [facility] MONOCYTE ABSOLUTE 0.48 0.10 - 1.30 K/uL [facility] NEUTROPHILS 83(H) 45 - 70 % [facility] NEUTROPHIL ABSOLUTE 7.14(H) 1.90 - 7.00 K/uL [facility] EOSINOPHILS 2 0 - 7 % [facility] EOSINOPHIL ABSOLUTE 0.13 0.00 - 0.70 K/uL [facility] LYMPHOCYTES 10(L) 16 - 45 % [facility] LYMPHOCYTE ABSOLUTE 0.84 0.70 - 4.50 K/uL [facility] Blood specimen (specimen) 06/16/2007 9:26 AM CDT 06/16/2007 10:04 AM CDT us Hsiaoou Hu HEMATOLOGY ORDERABLES Edited [facility] [address] [place] [address] * (ABNORMAL) COMPREHENSIVE METABOLIC PANEL (06/02/2007 1:41 PM CDT) CHLORIDE 103 96 - 108 mmol/L [facility] CREATININE 0.57 0.51 - 0.95 mg/dL [facility] ALT 29 0 - 31 U/L [facility] SODIUM 138 135 - 145 mmol/L [facility] ALKALINE PHOSPHATASE 98 35 - 104 U/L [facility] BILIRUBIN TOTAL 0.3 0.2 - 1.0 mg/dL [facility] CO2 24 22 - 30 mmol/L [facility] POTASSIUM 3.8 3.5 - 4.9 mmol/L [facility] TOTAL PROTEIN 6.8 6.3 - 8.6 g/dL [facility] GLUCOSE 122(H) 65 - 99 mg/dL [facility] AST 20 12 - 32 U/L [facility] BUN 15 6 - 20 mg/dL [facility] CALCIUM 8.8 8.4 - 10.2 mg/dL [facility] ALBUMIN 4.4 3.4 - 4.8 g/dL [facility] GFR, >60 >=60 mL/min/1. 7 sq meter [facility] GFR >60 >=60 mL/min/1. 7 sq meter [facility] Comment: Estimated GFR rate interpretative information for both Americans and non- Americans is available on the [facility] Intranet at: [email or web address] Select: Lab Policies and Procedures Select: Reference Ranges - GFR Blood specimen (specimen) 06/02/2007 1:41 PM CDT 06/02/2007 1:46 PM CDT Hsiaoou Hu CHEMISTRY ORDERABLES Edited [facility] [address] [place] [address] * (ABNORMAL) CBC WITH DIFFERENTIAL (06/02/2007 1:41 PM CDT) MPV 9.3 9.3 - 12.4 fL [facility] HEMATOCRIT 37.1 35.5 - 44.0 % [facility] RDW-STDEV 49.4(H) 37.1 - 48.7 fL [facility] RBC 3.67(L) 3.90 - 4.90 M/uL [facility] MCHC 32.9 31.5 - 35.5 % [facility] MCV 101.1(H) 82.0 - 99.0 fL [facility] PLATELETS 237 140 - 350 K/uL [facility] HEMOGLOBIN 12.2 11.8 - 14.8 g/dL [facility] RDW 13.8 11.5 - 14.5 % [facility] WBC 5.3 4.0 - 9.8 K/uL [facility] MCH 33.2(H) 27.2 - 32.6 pg [facility] BASOPHILS 1 0 - 2 % [facility] EOSINOPHIL ABSOLUTE 0.04 0.00 - 0.70 K/uL [facility] MONOCYTES 10 3 - 13 % [facility] MONOCYTE ABSOLUTE 0.53 0.10 - 1.30 K/uL [facility] BASOPHILS ABSOLUTE 0.03 0.00 - 0.20 K/uL [facility] NEUTROPHILS 74(H) 45 - 70 % [facility] NEUTROPHIL ABSOLUTE 3.89 1.90 - 7.00 K/uL [facility] EOSINOPHILS 1 0 - 7 % [facility] LYMPHOCYTES 15(L) 16 - 45 % [facility] LYMPHOCYTE ABSOLUTE 0.76 0.70 - 4.50 K/uL [facility] Blood specimen (specimen) 06/02/2007 1:41 PM CDT 06/02/2007 1:46 PM CDT Yousif Rizvi HEMATOLOGY ORDERABLES Edited INTERFACE SYSTEM Refer to clinic/hospital department [facility] [address] [place], [place] [address] * (ABNORMAL) COMPREHENSIVE METABOLIC PANEL (2007 7:59 AM CDT) AST 24 12 - 32 U/L [facility] BUN 19 6 - 20 mg/dL [facility] CALCIUM 8.7 8.4 - 10.2 mg/dL [facility] ALBUMIN 4.3 3.4 - 4.8 g/dL [facility] CHLORIDE 104 96 - 108 mmol/L [facility] CREATININE 0.66 0.51 - 0.95 mg/dL [facility] ALT 49(H) 0 - 31 U/L [facility] SODIUM 139 135 - 145 mmol/L [facility] ALKALINE PHOSPHATASE 148(H) 35 - 104 U/L [facility] CO2 26 22 - 30 mmol/L [facility] BILIRUBIN TOTAL 0.2 0.2 - 1.0 mg/dL [facility] POTASSIUM 4.2 3.5 - 4.9 mmol/L [facility] TOTAL PROTEIN 6.6 6.3 - 8.6 g/dL [facility] GLUCOSE 92 65 - 99 mg/dL [facility] GFR, >60 >=60 mL/min/1. 7 sq meter [facility] GFR >60 >=60 mL/min/1. 7 sq meter [facility] Comment: Estimated GFR rate interpretative information for both Americans and non- Americans is available on the [facility] Intranet at: [email or web address] Select: Lab Policies and Procedures Select: Reference Ranges - GFR Blood specimen (specimen) 2007 7:59 AM CDT 2007 8:55 AM CDT us Hsiaoou Hu CHEMISTRY ORDERABLES Edited [facility] [address] [place] [address] * (ABNORMAL) CBC WITH DIFFERENTIAL (2007 7:59 AM CDT) RDW-STDEV 55.8(H) 37.1 - 48.7 fL [facility] RBC 3.67(L) 3.90 - 4.90 M/uL [facility] MCHC 32.3 31.5 - 35.5 % [facility] MCV 103.0(H) 82.0 - 99.0 fL [facility] PLATELETS 184 140 - 350 K/uL [facility] HEMOGLOBIN 12.2 11.8 - 14.8 g/dL [facility] RDW 15.3(H) 11.5 - 14.5 % [facility] WBC 12.4(H) 4.0 - 9.8 K/uL [facility] MCH 33.2(H) 27.2 - 32.6 pg [facility] MPV 9.5 9.3 - 12.4 fL [facility] HEMATOCRIT 37.8 35.5 - 44.0 % [facility] ANISOCYTOSIS Slight [facility] MONOCYTES 8 3 - 13 % [facility] LYMPHOCYTE ABSOLUTE 1.24 0.70 - 4.50 K/uL [facility] METAMYELOCYTE 1(H) <=0 % [facility] BANDS 2 0 - 5 % [facility] TOXIC GRANULATION Slight [facility] BASOPHILS ABSOLUTE 0.12 0.00 - 0.20 K/uL [facility] EOSINOPHILS 1 0 - 7 % [facility] MACROCYTES Slight [facility] MONOCYTE ABSOLUTE 0.99 0.10 - 1.30 K/uL [facility] LYMPHOCYTES 10(L) 16 - 45 % [facility] PLATELET EST. Consistent w/ count Normal [facility] NEUTROPHIL ABSOLUTE 9.80(H) 1.90 - 7.00 K/uL [facility] NEUTROPHILS, SEG 77(H) 45 - 70 % [facility] POLYCHROMASIA Slight [facility] BASOPHILS 1 0 - 2 % [facility] EOSINOPHIL ABSOLUTE 0.12 0.00 - 0.70 K/uL [facility] Blood specimen (specimen) 2007 7:59 AM CDT 2007 8:50 AM CDT Hsiaoou Hu HEMATOLOGY ORDERABLES Edited [facility] [address] [place] [address] documented in this encounter Visit Diagnoses Diagnosis Malignant neoplasm of breast (female), unspecified site documented in this encounter Care Teams Digital Advertising Analyst Relationship Specialty Start Date End Date Tam Luis MD [address] [place] [address] PCP - General 05/01/04 07/18/22 documented as of this encounter
--- OUTSIDE RECORDS SUMMARY | 2024-08-17 13:23 | XMS_ITS | Encounter Summary ---
Author Organization [facility] Address 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 Gender Identity Not on file Sexual Orientation Not on file documented as of this encounter Plan of Treatment Upcoming Encounters Date Type Department Care Team (Late st Contact Info) Description 07/21/2025 12:05 PM CDT Appointment [facility] Laboratory Services [facility] [address] [place] [address] Vipul Rizvi MD [address] [place] [address] 07/21/2025 1:05 PM CDT Office Visit [facility] Oncology and Hematology [facility] [address] [place] [address] Vipul Rizvi MD [address] [place] [address] documented as of this encounter Visit Diagnoses Diagnosis Malignant neoplasm of breast (female), unspecified site documented in this encounter Care Teams Heel Builder Machine Relationship Specialty Start Date End Date Tam Luis MD [address] [place] [address] PCP - General 05/01/04 07/18/22 documented as of this encounter
--- OUTSIDE RECORDS SUMMARY | 2024-08-17 13:23 | XMS_ITS | Encounter Summary ---
Author Organization [facility] Address 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 Gender Identity Not on file Sexual Orientation Not on file documented as of this encounter Plan of Treatment Upcoming Encounters Date Type Department Care Team (Late st Contact Info) Description 07/21/2025 12:05 PM CDT Appointment [facility] Laboratory Services [facility] [address] [place] [address] Vipul Rizvi MD [address] [place] [address] 07/21/2025 1:05 PM CDT Office Visit [facility] Oncology and Hematology [facility] [address] [place] [address] Vipul Rizvi MD [address] [place] [address] documented as of this encounter Visit Diagnoses Diagnosis Malignant neoplasm of breast (female), unspecified site documented in this encounter Care Teams Smasher Hand Relationship Specialty Start Date End Date Tam Luis MD [address] [place] [address] PCP - General 05/01/04 07/18/22 documented as of this encounter
--- OUTSIDE RECORDS SUMMARY | 2024-08-17 13:23 | XMS_ITS | Encounter Summary ---
Author Organization [facility] Address 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 MARINE Gender Identity Not on file Sexual Orientation Not on file documented as of this encounter Plan of Treatment Upcoming Encounters Date Type Department Care Team (Late st Contact Info) Description 07/21/2025 12:05 PM CDT Appointment [facility] Laboratory Services [facility] [address], [place] [address] [place] [address] Vipul Rizvi MD [address] [place] [phone] 07/21/2025 1:05 PM CDT Office Visit [facility] Oncology and Hematology [facility] [address] [address] Vipul Rizvi MD [address] [place] [phone] documented as of this encounter Procedures Procedure Name Priority Date/Time Associated Diagnosis Comments CBC WITH DIFFERENTIAL Stat 05/12/2007 1:42 PM CDT COMPREHENSIVE METABOLIC PANEL Stat 05/12/2007 1:42 PM CDT CBC WITH DIFFERENTIAL Stat 05/05/2007 7:18 AM SUPERINTENDENT MARINE COMPREHENSIVE METABOLIC PANEL Stat 05/05/2007 7:18 AM SUPERINTENDENT MARINE CBC WITH DIFFERENTIAL Stat 04/21/2007 2:02 PM SUPERINTENDENT MARINE COMPREHENSIVE METABOLIC PANEL Stat 04/21/2007 2:02 PM SUPERINTENDENT MARINE documented in this encounter Results * (ABNORMAL) COMPREHENSIVE METABOLIC PANEL (05/12/2007 1:42 PM CDT) POTASSIUM 3.5 3.5 - 4.9 mmol/L [facility] TOTAL PROTEIN 6.6 6.3 - 8.6 g/dL [facility] GLUCOSE 109(H) 65 - 99 mg/dL [facility] AST 28 12 - 32 U/L [facility] BUN 20 6 - 20 mg/dL [facility] CALCIUM 9.1 8.4 - 10.2 mg/dL [facility] ALBUMIN 4.4 3.4 - 4.8 g/dL [facility] CHLORIDE 104 96 - 108 mmol/L [facility] CREATININE 0.56 0.51 - 0.95 mg/dL [facility] ALT 51(H) 0 - 31 U/L [facility] SODIUM 140 135 - 145 mmol/L [facility] ALKALINE PHOSPHATASE 86 35 - 104 U/L [facility] CO2 28 22 - 30 mmol/L [facility] BILIRUBIN TOTAL 0.2 0.2 - 1.0 mg/dL [facility] GFR, >60 >=60 mL/min/1. 7 sq meter [facility] GFR >60 >=60 mL/min/1. 7 sq meter [facility] Comment: Estimated GFR rate interpretative information for both Americans and non- Americans is available on the [facility] Intranet at: [email or web address] Select: Lab Policies and Procedures Select: Reference Ranges - GFR Blood specimen (specimen) 05/12/2007 1:42 PM CDT 05/12/2007 1:55 PM [facility]T [facility] Edited [facility] [address] [place] [address] * (ABNORMAL) CBC WITH DIFFERENTIAL (05/12/2007 1:42 PM CDT) RBC 3.32(L) 3.90 - 4.90 M/uL [facility] MCHC 33.0 31.5 - 35.5 % [facility] MCV 99.4(H) 82.0 - 99.0 fL [facility] PLATELETS 375(H) 140 - 350 K/uL [facility] HEMOGLOBIN 10.9(L) 11.8 - 14.8 g/dL [facility] RDW 14.5 11.5 - 14.5 % [facility] WBC 13.3(H) 4.0 - 9.8 K/uL [facility] MCH 32.8(H) 27.2 - 32.6 pg [facility] MPV 9.1(L) 9.3 - 12.4 fL [facility] HEMATOCRIT 33.0(L) 35.5 - 44.0 % [facility] RDW-STDEV 50.7(H) 37.1 - 48.7 fL [facility] NEUTROPHILS 85(H) 45 - 70 % [facility] NEUTROPHIL ABSOLUTE 11.29(H) 1.90 - 7.00 K/uL [facility] EOSINOPHILS 0 0 - 7 % [facility] EOSINOPHIL ABSOLUTE 0.01 0.00 - 0.70 K/uL [facility] LYMPHOCYTES 8(L) 16 - 45 % [facility] LYMPHOCYTE ABSOLUTE 1.03 0.70 - 4.50 K/uL [facility] BASOPHILS 0 0 - 2 % [facility] BASOPHILS ABSOLUTE 0.00 0.00 - 0.20 K/uL [facility] MONOCYTES 8 3 - 13 % [facility] MONOCYTE ABSOLUTE 1.01 0.10 - 1.30 K/uL [facility] Blood specimen (specimen) 05/12/2007 1:42 PM CDT 05/12/2007 1:55 PM CDT Yousif Rizvi HEMATOLOGY ORDERABLES Edited [facility] [address] [place] [address] * (ABNORMAL) COMPREHENSIVE METABOLIC PANEL (05/05/2007 7:18 AM SUPERINTENDENT MARINE) POTASSIUM 4.1 3.5 - 4.9 mmol/L [facility] GLUCOSE 91 65 - 99 mg/dL [facility] AST 24 12 - 32 U/L [facility] BUN 18 6 - 20 mg/dL [facility] CALCIUM 8.4 8.4 - 10.2 mg/dL [facility] CHLORIDE 105 96 - 108 mmol/L [facility] ALBUMIN 4.5 3.4 - 4.8 g/dL [facility] CREATININE 0.58 0.51 - 0.95 mg/dL [facility] SODIUM 139 135 - 145 mmol/L [facility] ALT 40(H) 0 - 31 U/L [facility] ALKALINE PHOSPHATASE 115(H) 35 - 104 U/L [facility] BILIRUBIN TOTAL 0.2 0.2 - 1.0 mg/dL [facility] CO2 26 22 - 30 mmol/L [facility] TOTAL PROTEIN 6.8 6.3 - 8.6 g/dL [facility] GFR, >60 >=60 mL/min/1. 7 sq meter [facility] GFR >60 >=60 mL/min/1. 7 sq meter [facility] Comment: Estimated GFR rate interpretative information for both Americans and non- Americans is available on the [facility] Intranet at: [email or web address] Select: Lab Policies and Procedures Select: Reference Ranges - GFR Blood specimen (specimen) 05/05/2007 7:18 AM SUPERINTENDENT MARINE 05/05/2007 7:21 AM SUPERINTENDENT MARINE Hsiaoou Hu CHEMISTRY ORDERABLES Edited [facility] [address] [place] [address] * (ABNORMAL) CBC WITH DIFFERENTIAL (05/05/2007 7:18 AM SUPERINTENDENT MARINE) HEMATOCRIT 35.8 35.5 - 44.0 % [facility] RDW-STDEV 53.5(H) 37.1 - 48.7 fL [facility] RBC 3.60(L) 3.90 - 4.90 M/uL [facility] MCHC 33.2 31.5 - 35.5 % [facility] MCV 99.4(H) 82.0 - 99.0 fL [facility] PLATELETS 195 140 - 350 K/uL [facility] HEMOGLOBIN 11.9 11.8 - 14.8 g/dL [facility] RDW 15.1(H) 11.5 - 14.5 % [facility] WBC 6.4 4.0 - 9.8 K/uL [facility] MCH 33.1(H) 27.2 - 32.6 pg [facility] MPV 9.0(L) 9.3 - 12.4 fL [facility] MONOCYTES 12 3 - 13 % [facility] MONOCYTE ABSOLUTE 0.75 0.10 - 1.30 K/uL [facility] NEUTROPHILS 68 45 - 70 % [facility] NEUTROPHIL ABSOLUTE 4.36 1.90 - 7.00 K/uL [facility] EOSINOPHILS 3 0 - 7 % [facility] EOSINOPHIL ABSOLUTE 0.17 0.00 - 0.70 K/uL [facility] LYMPHOCYTES 17 16 - 45 % [facility] LYMPHOCYTE ABSOLUTE 1.06 0.70 - 4.50 K/uL [facility] BASOPHILS 1 0 - 2 % [facility] BASOPHILS ABSOLUTE 0.06 0.00 - 0.20 K/uL [facility] Blood specimen (specimen) 05/05/2007 7:18 AM SUPERINTENDENT MARINE 05/05/2007 7:21 AM SUPERINTENDENT MARINE Yousif Rizvi HEMATOLOGY ORDERABLES Edited [facility] [address] [place] [address] * (ABNORMAL) COMPREHENSIVE METABOLIC PANEL (04/21/2007 2:02 PM SUPERINTENDENT MARINE) POTASSIUM 3.7 3.5 - 4.9 mmol/L [facility] GLUCOSE 81 65 - 99 mg/dL [facility] AST 24 12 - 32 U/L [facility] BUN 14 6 - 20 mg/dL [facility] CALCIUM 9.1 8.4 - 10.2 mg/dL [facility] CHLORIDE 103 96 - 108 mmol/L [facility] ALBUMIN 4.6 3.4 - 4.8 g/dL [facility] CREATININE 0.63 0.51 - 0.95 mg/dL [facility] SODIUM 140 135 - 145 mmol/L [facility] ALT 37(H) 0 - 31 U/L [facility] ALKALINE PHOSPHATASE 96 35 - 104 U/L [facility] BILIRUBIN TOTAL 0.2 0.2 - 1.0 mg/dL [facility] CO2 27 22 - 30 mmol/L [facility] TOTAL PROTEIN 6.7 6.3 - 8.6 g/dL [facility] GFR, >60 >=60 mL/min/1.7 sq meter [facility] GFR >60 >=60 mL/min/1.7 sq meter [facility] Comment: Estimated GFR rate interpretative information for both Americans and non- Americans is available on the [facility] Intranet at: [email or web address] Select: Lab Policies and Procedures Select: Reference Ranges - GFR Blood specimen (specimen) 04/21/2007 2:02 PM SUPERINTENDENT MARINE 04/21/2007 2:04 PM SUPERINTENDENT MARINE us Hsiaoou Hu CHEMISTRY ORDERABLES Edited [facility] [address] [place] [address] * (ABNORMAL) CBC WITH DIFFERENTIAL (04/21/2007 2:02 PM SUPERINTENDENT MARINE) HEMATOCRIT 33.5(L) 35.5 - 44.0 % [facility] RDW-STDEV 49.8(H) 37.1 - 48.7 fL [facility] RBC 3.35(L) 3.90 - 4.90 M/uL [facility] MCHC 32.8 31.5 - 35.5 % [facility] MCV 100.0(H) 82.0 - 99.0 fL [facility] PLATELETS 301 140 - 350 K/uL [facility] HEMOGLOBIN 11.0(L) 11.8 - 14.8 g/dL [facility] RDW 15.7(H) 11.5 - 14.5 % [facility] WBC 6.6 4.0 - 9.8 K/uL [facility] MCH 32.8(H) 27.2 - 32.6 pg [facility] MPV 8.7(L) 9.3 - 12.4 fL [facility] NEUTROPHILS 72(H) 45 - 70 % [facility] ATYPICAL LYMPHOCYTE 1 0 - 5 % [facility] HYPOCHROMIA Slight [facility] EOSINOPHIL ABSOLUTE 0.07 0.00 - 0.70 K/uL [facility] EOSINOPHILS 1 0 - 7 % [facility] MACROCYTES Slight [facility] LYMPHOCYTE ABSOLUTE 1.19 0.70 - 4.50 K/uL [facility] LYMPHOCYTES 17 16 - 45 % [facility] PLATELET EST. Consistent w/ count Normal [facility] BASOPHILS ABSOLUTE 0.13 0.00 - 0.20 K/uL [facility] POLYCHROMASIA Slight [facility] BASOPHILS 2 0 - 2 % [facility] MONOCYTE ABSOLUTE 0.46 0.10 - 1.30 K/uL [facility] ANISOCYTOSIS Slight [facility] MONOCYTES 7 3 - 13 % [facility] NEUTROPHIL ABSOLUTE 4.75 1.90 - 7.00 K/uL [facility] Blood specimen (specimen) 04/21/2007 2:02 PM SUPERINTENDENT MARINE 04/21/2007 2:04 PM SUPERINTENDENT MARINE Hsiaoou Hu HEMATOLOGY ORDERABLES Edited [facility] [address] [place] [address] documented in this encounter Visit Diagnoses Diagnosis Malignant neoplasm of breast (female), unspecified site documented in this encounter Care Teams Electronics Lead Relationship Specialty Start Date End Date Tam Luis MD [address] [place] [address] PCP - General 05/01/04 07/18/22 documented as of this encounter
--- OUTSIDE RECORDS SUMMARY | 2024-08-17 13:23 | XMS_ITS | Encounter Summary ---
Author Organization [facility] Address 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 [address] [address] Vipul Rizvi MD [address] [place] [phone] documented as of this encounter Procedures Procedure Name Priority Date/Time Associated Diagnosis Comments CBC WITH DIFFERENTIAL Routine 04/14/2007 7:33 AM DRYING MACHINE BACK TENDER CBC WITH DIFFERENTIAL Routine 04/14/2007 7:33 AM DRYING MACHINE BACK TENDER COMPREHENSIVE METABOLIC PANEL Routine 04/14/2007 7:33 AM DRYING MACHINE BACK TENDER CBC WITH DIFFERENTIAL Routine 03/31/2007 1:24 PM DRYING MACHINE BACK TENDER CBC WITH DIFFERENTIAL Routine 03/31/2007 1:24 PM DRYING MACHINE BACK TENDER COMPREHENSIVE METABOLIC PANEL Routine 03/31/2007 1:24 PM DRYING MACHINE BACK TENDER CBC WITH DIFFERENTIAL Routine 03/24/2007 7:19 AM DRYING MACHINE BACK TENDER CBC WITH DIFFERENTIAL Routine 03/24/2007 7:19 AM DRYING MACHINE BACK TENDER COMPREHENSIVE METABOLIC PANEL Routine 03/24/2007 7:19 AM DRYING MACHINE BACK TENDER documented in this encounter Results * (ABNORMAL) CBC WITH DIFFERENTIAL (04/14/2007 7:33 AM DRYING MACHINE BACK TENDER) NEUTROPHIL ABSOLUTE 6.60 1.90 - 7.00 K/uL INTERFACE SYSTEM LYMPHOCYTE ABSOLUTE 1.14 0.70 - 4.50 K/uL INTERFACE SYSTEM MONOCYTE ABSOLUTE 0.62 0.10 - 1.30 K/uL INTERFACE SYSTEM EOSINOPHIL ABSOLUTE 0.18 0.00 - 0.70 K/uL INTERFACE SYSTEM BASOPHILS ABSOLUTE 0.09 0.00 - 0.20 K/uL INTERFACE SYSTEM NEUTROPHILS, SEG 72(H) 45 - 70 % INT ERFACE SYSTEM BANDS 3 0 - 5 % INTERFACE SYSTEM LYMPHOCYTES 13(L) 16 - 45 % INTERFAC E SYSTEM MONOCYTES 7 3 - 13 % INTERFACE SYSTEM EOSINOPHILS 2 0 - 7 % INTERFAC E SYSTEM BASOPHILS 1 0 - 2 % INTERFACE SYSTEM METAMYELOCYTE 2(H) <=0 % INTERF KATHRYN SYSTEM PLATELET EST. Consistent w/ count Normal INTERFACE SYSTEM POLYCHROMASIA Slight INTERF KATHRYN SYSTEM HYPOCHROMIA Slight INTERFAC E SYSTEM TOXIC GRANULATION Slight IN TERFACE SYSTEM 04/14/2007 7:33 AM DRYING MACHINE BACK TENDER [facility] HEMATOLOGY ORDERABLES Final Resu lt Performing Organization Address [facility] Phone Number INTERFACE SYSTEM Refer to clinic/hospital department * (ABNORMAL) CBC WITH DIFFERENTIAL (04/14/2007 7:33 AM DRYING MACHINE BACK TENDER) WBC 8.8 4.0 - 9.8 K/uL INTERFACE SYSTEM RBC 3.16(L) 3.90 - 4.90 M/uL INTERFACE SYSTEM HEMOGLOBIN 10.4(L) 11.8 - 14.8 g/dL INTERFACE SYSTEM HEMATOCRIT 30.8(L) 35.5 - 44.0 % INTERFACE SYSTEM MCV 97.5 82.0 - 99.0 fL INTERFACE SYSTEM MCH 32.9(H) 27.2 - 32.6 pg INTERFACE SYSTEM MCHC 33.8 31.5 - 35.5 % INTERFACE SYSTEM RDW 13.2 11.5 - 14.5 % INTERFACE SYSTEM RDW-STDEV 44.4 37.1 - 48.7 fL INTERFACE SYSTEM PLATELETS 215 140 - 350 K/uL INTERFACE SYSTEM MPV 8.8(L) 9.3 - 12.4 fL INTERFACE SYSTEM 04/14/2007 7:33 AM DRYING MACHINE BACK TENDER [facility] HEMATOLOGY ORDERABLES Final Resu lt Performing Organization Address [facility] Phone Number INTERFACE SYSTEM Refer to clinic/hospital department * (ABNORMAL) COMPREHENSIVE METABOLIC PANEL (04/14/2007 7:33 AM DRYING MACHINE BACK TENDER) GLUCOSE 99 65 - 99 mg/dL INTERFACE SYSTEM CREATININE 0.64 0.51 - 0.95 mg/dL INTERFACE SYSTEM CALCIUM 8.6 8.4 - 10.2 mg/dL INTERFACE SYSTEM ALKALINE PHOSPHATASE 114(H) 35 - 104 U/L INTERFACE SYSTEM AST 27 12 - 32 U/L INTERFACE SYSTEM ALT 42(H) 0 - 31 U/L INTERFACE SYSTEM TOTAL PROTEIN 6.5 6.3 - 8.6 g/dL INTERFACE SYSTEM ALBUMIN 4.4 3.4 - 4.8 g/dL INTERFACE SYSTEM BILIRUBIN TOTAL 0.1(L) 0.2 - 1.0 mg/dL INTERFACE SYSTEM BUN 15 6 - 20 mg/dL INTERFACE SYSTEM SODIUM 139 135 - 145 mmol/L INTERFACE SYSTEM POTASSIUM 3.8 3.5 - 4.9 mmol/L INTERFACE SYSTEM CHLORIDE 104 96 - 108 mmol/L INTERFACE SYSTEM CO2 26 22 - 30 mmol/L INTERFACE SYSTEM GFR, >60 >=60 mL/min/1. 7 sq meter INTERFACE SYSTEM GFR >60 >=60 mL/min/1. 7 sq meter INTERFACE SYSTEM Comment: Estimated GFR rate interpretative information for both Americans and non- Americans is available on the [facility] Intranet at: [email or web address] Select: Lab Policies and Procedures Select: Reference Ranges - GFR 04/14/2007 7:33 AM DRYING MACHINE BACK TENDER [facility] CHEMISTRY ORDERABLES Final Resul t Performing Organization Address [facility] Phone Number INTERFACE SYSTEM Refer to clinic/hospital department * CBC WITH DIFFERENTIAL (03/31/2007 1:24 PM DRYING MACHINE BACK TENDER) NEUTROPHILS 69 45 - 70 % INTERFAC E SYSTEM LYMPHOCYTES 20 16 - 45 % INTERFAC E SYSTEM MONOCYTES 9 3 - 13 % INTERFACE SYSTEM EOSINOPHILS 2 0 - 7 % INTERFAC E SYSTEM BASOPHILS 1 0 - 2 % INTERFACE SYSTEM NEUTROPHIL ABSOLUTE 4.07 1.90 - 7.00 K/uL INTERFACE SYSTEM LYMPHOCYTE ABSOLUTE 1.16 0.70 - 4.50 K/uL INTERFACE SYSTEM MONOCYTE ABSOLUTE 0.54 0.10 - 1.30 K/uL INTERFACE SYSTEM EOSINOPHIL ABSOLUTE 0.11 0.00 - 0.70 K/uL INTERFACE SYSTEM BASOPHILS ABSOLUTE 0.03 0.00 - 0.20 K/uL INTERFACE SYSTEM 03/31/2007 1:24 PM DRYING MACHINE BACK TENDER [facility] HEMATOLOGY ORDERABLES Edited Performing Organization Address City/[facility] Co de Phone Number INTERFACE SYSTEM Refer to clinic/hospital department * (ABNORMAL) CBC WITH DIFFERENTIAL (03/31/2007 1:24 PM DRYING MACHINE BACK TENDER) WBC 5.9 4.0 - 9.8 K/uL INTERFACE SYSTEM RBC 3.20(L) 3.90 - 4.90 M/uL INTERFACE SYSTEM HEMOGLOBIN 10.4(L) 11.8 - 14.8 g/dL INTERFACE SYSTEM HEMATOCRIT 30.9(L) 35.5 - 44.0 % INTERFACE SYSTEM MCV 96.6 82.0 - 99.0 fL INTERFACE SYSTEM MCH 32.5 27.2 - 32.6 pg INTERFACE SYSTEM MCHC 33.7 31.5 - 35.5 % INTERFACE SYSTEM RDW 12.9 11.5 - 14.5 % INTERFACE SYSTEM RDW-STDEV 43.8 37.1 - 48.7 fL INTERFACE SYSTEM PLATELETS 283 140 - 350 K/uL INTERFACE SYSTEM MPV 9.6 9.3 - 12.4 fL INTERFACE SYSTEM 03/31/2007 1:24 PM DRYING MACHINE BACK TENDER [facility] HEMATOLOGY ORDERABLES Edited INTERFACE SYSTEM Refer to clinic/hospital department * (ABNORMAL) COMPREHENSIVE METABOLIC PANEL (03/31/2007 1:24 PM DRYING MACHINE BACK TENDER) GLUCOSE 87 65 - 99 mg/dL INTERFACE SYSTEM CREATININE 0.60 0.51 - 0.95 mg/dL INTERFACE SYSTEM CALCIUM 8.4 8.4 - 10.2 mg/dL INTERFACE SYSTEM ALKALINE PHOSPHATASE 83 35 - 104 U/L INTERFACE SYSTEM AST 23 12 - 32 U/L INTERFACE SYSTEM ALT 41(H) 0 - 31 U/L INTERFACE SYSTEM TOTAL PROTEIN 6.6 6.3 - 8.6 g/dL INTERFACE SYSTEM ALBUMIN 4.4 3.4 - 4.8 g/dL INTERFACE SYSTEM BILIRUBIN TOTAL 0.2 0.2 - 1.0 mg/dL INTERFACE SYSTEM BUN 17 6 - 20 mg/dL INTERFACE SYSTEM SODIUM 140 135 - 145 mmol/L INTERFACE SYSTEM POTASSIUM 3.8 3.5 - 4.9 mmol/L INTERFACE SYSTEM CHLORIDE 106 96 - 108 mmol/L INTERFACE SYSTEM CO2 26 22 - 30 mmol/L INTERFACE SYSTEM GFR, >60 >=60 mL/min/1.7 sq meter INTERFACE SYSTEM GFR >60 >=60 mL/min/1.7 sq meter INTERFACE SYSTEM Comment: Estimated GFR rate interpretative information for both Americans and non- Americans is available on the [facility] Intranet at: [email or web address] Select: Lab Policies and Procedures Select: Reference Ranges - GFR 03/31/2007 1:24 PM DRYING MACHINE BACK TENDER [facility] CHEMISTRY ORDERABLES Edited Performing Organization Address City/State/[facility] Co de Phone Number INTERFACE SYSTEM Refer to clinic/hospital department * (ABNORMAL) CBC WITH DIFFERENTIAL (03/24/2007 7:19 AM DRYING MACHINE BACK TENDER) NEUTROPHIL ABSOLUTE 6.92 1.90 - 7.00 K/uL INTERFACE SYSTEM LYMPHOCYTE ABSOLUTE 1.46 0.70 - 4.50 K/uL INTERFACE SYSTEM MONOCYTE ABSOLUTE 0.46 0.10 - 1.30 K/uL INTERFACE SYSTEM EOSINOPHIL ABSOLUTE 0.09 0.00 - 0.70 K/uL INTERFACE SYSTEM BASOPHILS ABSOLUTE 0.09 0.00 - 0.20 K/uL INTERFACE SYSTEM NEUTROPHILS, SEG 71(H) 45 - 70 % INT ERFACE SYSTEM BANDS 5 0 - 5 % INTERFACE SYSTEM LYMPHOCYTES 16 16 - 45 % INTERFAC E SYSTEM MONOCYTES 5 3 - 13 % INTERFACE SYSTEM EOSINOPHILS 1 0 - 7 % INTERFAC E SYSTEM BASOPHILS 1 0 - 2 % INTERFACE SYSTEM METAMYELOCYTE 1(H) <=0 % INTERF KATHRYN SYSTEM PLATELET EST. Consistent w/ count Normal INTERFACE SYSTEM RBC MORPHOLOGY Normal Normal INTER FACE SYSTEM 03/24/2007 7:19 AM DRYING MACHINE BACK TENDER [facility] HEMATOLOGY ORDERABLES Edited Performing Organization Address [facility] Phone Number INTERFACE SYSTEM Refer to clinic/hospital department * (ABNORMAL) CBC WITH DIFFERENTIAL (03/24/2007 7:19 AM DRYING MACHINE BACK TENDER) WBC 9.1 4.0 - 9.8 K/uL INTERFACE SYSTEM RBC 3.47(L) 3.90 - 4.90 M/uL INTERFACE SYSTEM HEMOGLOBIN 11.2(L) 11.8 - 14.8 g/dL INTERFACE SYSTEM HEMATOCRIT 33.6(L) 35.5 - 44.0 % INTERFACE SYSTEM MCV 96.8 82.0 - 99.0 fL INTERFACE SYSTEM MCH 32.3 27.2 - 32.6 pg INTERFACE SYSTEM MCHC 33.3 31.5 - 35.5 % INTERFACE SYSTEM RDW 12.8 11.5 - 14.5 % INTERFACE SYSTEM RDW-STDEV 42.4 37.1 - 48.7 fL INTERFACE SYSTEM PLATELETS 209 140 - 350 K/uL INTERFACE SYSTEM MPV 9.6 9.3 - 12.4 fL INTERFACE SYSTEM 03/24/2007 7:19 AM DRYING MACHINE BACK [facility] ORDERAB[facility] Edited INTERFACE SYSTEM Refer to clinic/hospital department * (ABNORMAL) COMPREHENSIVE METABOLIC PANEL (03/24/2007 7:19 AM DRYING MACHINE BACK TENDER) GLUCOSE 84 65 - 99 mg/dL INTERFACE SYSTEM CREATININE 0.74 0.51 - 0.95 mg/dL INTERFACE SYSTEM CALCIUM 8.1(L) 8.4 - 10.2 mg/dL INTERFACE SYSTEM ALKALINE PHOSPHATASE 112(H) 35 - 104 U/L INTERFACE SYSTEM AST 27 12 - 32 U/L INTERFACE SYSTEM ALT 45(H) 0 - 31 U/L INTERFACE SYSTEM TOTAL PROTEIN 6.8 6.3 - 8.6 g/dL INTERFACE SYSTEM ALBUMIN 4.4 3.4 - 4.8 g/dL INTERFACE SYSTEM BILIRUBIN TOTAL 0.2 0.2 - 1.0 mg/dL INTERFACE SYSTEM BUN 19 6 - 20 mg/dL INTERFACE SYSTEM SODIUM 138 135 - 145 mmol/L INTERFACE SYSTEM POTASSIUM 3.9 3.5 - 4.9 mmol/L INTERFACE SYSTEM CHLORIDE 105 96 - 108 mmol/L INTERFACE SYSTEM CO2 24 22 - 30 mmol/L INTERFACE SYSTEM GFR, >60 >=60 mL/min/1. 7 sq meter INTERFACE SYSTEM GFR >60 >=60 mL/min/1. 7 sq meter INTERFACE SYSTEM Comment: Estimated GFR rate interpretative information for both Americans and non- Americans is available on the [facility] Intranet at: [email or web address] Select: Lab Policies and Procedures Select: Reference Ranges - GFR 03/24/2007 7:19 AM DRYING MACHINE BACK TENDER [facility] ORDERABLES Edited INTERFACE SYSTEM Refer to clinic/hospital department documented in this encounter Visit Diagnoses Diagnosis Malignant neoplasm of breast (female), unspecified site documented in this encounter Care Teams Chain Offbearer Relationship Specialty Start Date End Date Tam Luis MD [address] [place] [address] PCP - General 05/01/04 07/18/22 documented as of this encounter
--- OUTSIDE RECORDS SUMMARY | 2024-08-17 13:23 | XMS_ITS | Encounter Summary ---
Author Organization [facility] Address [address] [place] [address] Care Team Providers Care Middleware Consultant Name Role Phone Hawa Luis MD Primary Care Provider [phone] Encounter Details Date Type Department Care Team (Latest Contact Info) Description 10/14/2007 Outpatient Historical [facility] Yousif Rizvi Malignant Neoplasm of Breast (Female), Unspecified Site (CMS/HCC) Social History Tobacco Use Types Packs/Day Years Used Date Smoking Tobacco: Never Assessed Comments Unknown Sex and Gender Information Value Date Recorded Sex Assigned at Not on file Legal Sex Female 3:59 AM M[employer]ER [employer]ILL Gender Identity Not on file Sexual Orientation Not on file documented as of this encounter Plan of Treatment Upcoming Encounters Date Type Department Care Team (Late st Contact Info) Description 07/21/2025 12:05 PM CDT Appointment [facility] Laboratory Services [facility] [address], [place] [id number] [place] [address] Vipul Rizvi MD [address] [place] [id number] 07/21/2025 1:05 PM CDT Office Visit [facility] Oncology and Hematology [facility] [address] [address] Vipul Rizvi MD [address] [place] [phone] documented as of this encounter Procedures Procedure Name Priority Date/Time Associated Diagnosis Comments XR DEXA BONE DENSITY AXIAL 1 OR MORE SITES Routine 10/14/2007 2:56 PM CDT documented in this encounter Results * XR DEXA BONE DENSITY AXIAL (10/14/2007 2:56 PM CDT) Anatomical Region Laterality Modality Other 10/14/2007 2:56 PM CDT Narrative 10/14/2007 2:58 PM CDT [facility] [address] [place], [place] [address] Admit Date: 10/14/2007 KALYN DUFF Vince Sex: F Admit Prov: YOUSIF RIZVI Date: 1950 Primary Care Prov: ALFREDO HAWA Whelan CMRN: [id number] [facility] [address] [place] [address] IMAGING SERVICES Ordering Prov: N/A Accession Number: [id number] Interpretation Examination: Bone Density Study Clinical History: 57 year-old menopausal female with breast cancer. Monitor for osteoporosis. Findings: Lateral radiograph of the lumbar spine: No evidence of fracture. Lumbar Spine (L 1-4 ) spine bone mineral density is 1.42 g/sq cm which corresponds to a T-score of +2.0. Femoral neck densities: Left femoral neck bone mineral density is 0.84 g/sq cm which corresponds to a T-score of -1.4. Right femoral neck bone mineral density is 0.86 g/sq cm which corresponds to a T-score of -1.3 Impressions: Lumbar spine: This patient's bone mineral density of the spine is above normal when compared to the normal range of young adults and present fracture risk is considered to be negligible. Hips: This patient's bone mineral density of the hip is mildly osteopenic when compared to the normal range of young adults and present fracture risk is considered to be very low. Comments: None. Detailed report to follow. . Dictated by: BRIJESH NINA 10/14/2007 14:39 Electronically signed by: BRIJESH NINA 10/14/2007 14:40 Procedure Note Brijesh Nina MD - 10/14/2007 [facility] [address] [place], [place] [address] Admit Date: 10/14/2007 KALYN DUFF Sex: F Admit Prov: YOUSIF RIZVI Date: 1950 Primary Care Prov: ALFREDO HAWA E CMRN: [id number] Room: [facility]: [address] [place] [address] IMAGING SERVICES Ordering Prov: N/A Interpretation Examination: Bone Density Study Clinical History: 57 year-old menopausal female with breastcancer. Monitor for osteoporosis. Findings: Lateral radiograph of the lumbar spine: No evidence of fracture. Lumbar Spine (L 1-4 ) spine bone mineral density is 1.42 g/sq cmwhich corresponds to a T-score of +2.0. Femoral neck densities: Left femoral neck bone mineral density is 0.84 g/sq cm whichcorresponds to a T-score of -1.4. Right femoral neck bone mineral density is 0.86 g/sq cm whichcorresponds to a T-score of -1.3 Impressions: Lumbar spine: This patient's bone mineral density of the spine isabove normal when compared to the normal range of young adults andpresent fracture risk is considered to be negligible. Hips: This patient's bone mineral density of the hip is mildlyosteopenic when compared to the normal range of young adults and presentfracture risk is considered to be very low. Comments: None. Detailed report to follow. . Dictated by: BRIJESH NINA 10/14/2007 14:39 Electronically signed by: BRIJESH NINA 10/14/2007 14:40 Yousif Rizvi DIAGNOSTIC IMAGING ORDERABLES Fi nal Result documented in this encounter Visit Diagnoses Diagnosis Malignant neoplasm of breast (female), unspecified site documented in this encounter Care Teams Middleware Consultant Relationship Specialty Start Date End Date Hawa Luis MD [address] [place] [address] PCP - General 05/01/04 07/18/22 documented as of this encounter
--- OUTSIDE RECORDS SUMMARY | 2024-08-17 13:23 | XMS_ITS | Encounter Summary ---
Author Organization [facility] Address [address] [place] [address] Care Team Providers Care Granite Polisher Machine Name Role Phone Tam Luis MD Primary Care Provider [phone] Encounter Details Date Type Department Care Team (Late Contact Info) Description 05/01/2004 Inpatient Historical HIS [place] [address] [facility] [address] [place] [address] William Howard MD [address] [facility] [address] [facility] [address] SYNCOPE AND COLLAPSE (Primary Dx) Social History Tobacco Use Types Packs/Day Years Used Date Smoking Tobacco: Never Assessed Comments Unknown Sex and Gender Information Value Date Recorded Sex Assigned at Not on file Legal Sex Female 3:59 AM HR ADMINISTRATOR Gender Identity Not on file Sexual Orientation Not on file documented as of this encounter Plan of Treatment Upcoming Encounters Date Type Department Care Team (Late Contact Info) Description 07/21/2025 12:05 PM CDT Appointment [facility] Laboratory Services Daniel Cartwright [facility] [address] [facility] [address], [facility] [address] [place] [address] Vipul Rizvi MD [address] [place] [address] 07/21/2025 1:05 PM CDT Office Visit [facility] Oncology and Hematology [facility] [address] [facility] [address] [place] [address] Vipul Rizvi MD [address] [facility] [address] [place] [address] documented as of this encounter Procedures Procedure Name Priority Date/Time Associated Diagnosis Comments TROPONIN Routine 05/03/2004 3:30 AM HR ADMINISTRATOR TROPONIN Routine 05/02/2004 7:30 PM HR ADMINISTRATOR TROPONIN Routine 05/02/2004 12:20 PM HR ADMINISTRATOR CBC WITH DIFFERENTIAL Routine 05/02/2004 3:20 AM HR ADMINISTRATOR CBC WITH DIFFERENTIAL Routine 05/02/2004 3:20 AM HR ADMINISTRATOR TROPONIN Routine 05/02/2004 3:20 AM HR ADMINISTRATOR TSH Routine 05/02/2004 3:20 AM HR ADMINISTRATOR BASIC METABOLIC PANEL Routine 05/02/2004 3:20 AM HR ADMINISTRATOR TROPONIN Routine 05/01/2004 8:15 PM HR ADMINISTRATOR TROPONIN (W/REFLEX CKMB/CK) Routine 05/01/2004 3:45 PM HR ADMINISTRATOR CBC WITH DIFFERENTIAL Routine 05/01/2004 2:38 PM HR ADMINISTRATOR CBC WITH DIFFERENTIAL Routine 05/01/2004 2:38 PM HR ADMINISTRATOR documented in this encounter Results * TROPONIN (05/03/2004 3:30 AM HR ADMINISTRATOR) TROPONIN T <0.01 <=0.03 ng/mL INTERFACE SYSTEM TROPONIN T INTERP Negative INTERFACE SYSTEM 05/03/2004 3:30 AM HR ADMINISTRATOR us Yinka Castro MD CHEMISTRY ORDERABLES Final Res ult INTERFACE SYSTEM Refer to clinic/hospital department * TROPONIN (05/02/2004 7:30 PM HR ADMINISTRATOR) TROPONIN T <0.01 <=0.03 ng/mL INTERFACE SYSTEM TROPONIN T INTERP Negative INTERFACE SYSTEM 05/02/2004 7:30 PM HR ADMINISTRATOR Yinka Castro MD CHEMISTRY ORDERABLES Final Res ult Performing Organization Address [facility] Phone Number INTERFACE SYSTEM Refer to clinic/hospital department * TROPONIN (05/02/2004 12:20 PM HR ADMINISTRATOR) TROPONIN T <0.01 <=0.03 ng/mL INTERFACE SYSTEM TROPONIN T INTERP Negative INTERFACE SYSTEM 05/02/2004 12:2 0 PM HR ADMINISTRATOR Yinka Castro MD CHEMISTRY ORDERABLES Final Res ult Performing Organization Address [facility] Phone Number INTERFACE SYSTEM Refer to clinic/hospital department * CBC WITH DIFFERENTIAL (05/02/2004 3:20 AM HR ADMINISTRATOR) NEUTROPHILS 65 45 - 70 % INTERFAC E SYSTEM LYMPHOCYTES 24 16 - 45 % INTERFAC E SYSTEM MONOCYTES 7 3 - 13 % INTERFACE SYSTEM EOSINOPHILS 3 0 - 7 % INTERFAC E SYSTEM BASOPHILS 1 0 - 2 % INTERFACE SYSTEM NEUTROPHIL ABSOLUTE 4.07 1.90 - 7.00 K/uL INTERFACE SYSTEM LYMPHOCYTE ABSOLUTE 1.52 0.70 - 4.50 K/uL INTERFACE SYSTEM MONOCYTE ABSOLUTE 0.44 0.10 - 1.30 K/uL INTERFACE SYSTEM EOSINOPHIL ABSOLUTE 0.16 0.00 - 0.70 K/uL INTERFACE SYSTEM BASOPHILS ABSOLUTE 0.03 0.00 - 0.20 K/uL INTERFACE SYSTEM 05/02/2004 3:20 AM HR ADMINISTRATOR Yinka Castro MD HEMATOLOGY ORDERABLES Final Re sult Performing Organization Address [facility] Phone Number INTERFACE SYSTEM Refer to clinic/hospital department * CBC WITH DIFFERENTIAL (05/02/2004 3:20 AM HR ADMINISTRATOR) WBC 6.2 4.0 - 9.8 K/uL INTERFACE SYSTEM RBC 3.97 3.90 - 4.90 M/uL INTERFACE SYSTEM HEMOGLOBIN 12.4 11.8 - 14.8 g/dL INTERFACE SYSTEM HEMATOCRIT 37.3 35.5 - 44.0 % INTERFACE SYSTEM MCV 94.0 82.0 - 99.0 fL INTERFACE SYSTEM MCH 31.2 27.2 - 32.6 pg INTERFACE SYSTEM MCHC 33.2 31.5 - 35.5 % INTERFACE SYSTEM RDW 12.2 11.5 - 14.5 % INTERFACE SYSTEM RDW-STDEV 41.6 37.1 - 48.7 fL INTERFACE SYSTEM PLATELETS 297 140 - 350 K/uL INTERFACE SYSTEM MPV 10.4 9.3 - 12.4 fL INTERFACE SYSTEM 05/02/2004 3:20 AM HR ADMINISTRATOR us Yinka Castro MD HEMATOLOGY ORDERABLES Final Re sult Performing Organization Address [facility] Co de Phone Number INTERFACE SYSTEM Refer to clinic/hospital department * TSH (05/02/2004 3:20 AM HR ADMINISTRATOR) TSH 1.32 0.27 - 4.20 uU/mL INTERFACE SYSTEM 05/02/2004 3:20 AM HR ADMINISTRATOR us Yinka Castro MD CHEMISTRY ORDERABLES Final Res ult Performing Organization Address [facility] Co de Phone Number INTERFACE SYSTEM Refer to clinic/hospital department * BASIC METABOLIC PANEL (05/02/2004 3:20 AM HR ADMINISTRATOR) GLUCOSE 105 65 - 109 mg/dL INTERFACE SYSTEM CREATININE 0.8 0.4 - 1.2 mg/dL INTERFACE SYSTEM CALCIUM 8.6 8.6 - 10.2 mg/dL INTERFACE SYSTEM BUN 14 6 - 20 mg/dL INTERFACE SYSTEM SODIUM 141 135 - 145 mmol/L INTERFACE SYSTEM POTASSIUM 3.5 3.5 - 4.9 mmol/L INTERFACE SYSTEM CHLORIDE 108 96 - 108 mmol/L INTERFACE SYSTEM CO2 25 22 - 30 mmol/L INTERFACE SYSTEM 05/02/2004 3:20 AM HR ADMINISTRATOR us Yinka Castro MD CHEMISTRY ORDERABLES Final Res ult Performing Organization Address [facility] Phone Number INTERFACE SYSTEM Refer to clinic/hospital department * TROPONIN (05/02/2004 3:20 AM HR ADMINISTRATOR) TROPONIN T <0.01 <=0.03 ng/mL INTERFACE SYSTEM TROPONIN T INTERP Negative INTERFACE SYSTEM 05/02/2004 3:20 AM HR ADMINISTRATOR Yinka Castro MD CHEMISTRY ORDERABLES Final Res ult Performing Organization Address [facility] Phone Number INTERFACE SYSTEM Refer to clinic/hospital department * TROPONIN (05/01/2004 8:15 PM HR ADMINISTRATOR) TROPONIN T <0.01 <=0.03 ng/mL INTERFACE SYSTEM TROPONIN T INTERP Negative INTERFACE SYSTEM 05/01/2004 8:15 PM HR ADMINISTRATOR Yinka Castro MD CHEMISTRY ORDERABLES Final Res ult Performing Organization Address [facility] Phone Number INTERFACE SYSTEM Refer to clinic/hospital department * TROPONIN (W/REFLEX CKMB/CK) (05/01/2004 3:45 PM HR ADMINISTRATOR) TROPONIN T <0.01 <=0.03 ng/mL INTERFACE SYSTEM TROPONIN T INTERP Negative INTERFACE SYSTEM 05/01/2004 3:45 PM HR ADMINISTRATOR Ran Florence MD CHEMISTRY ORDERABLES Final Res ult Performing Organization Address [facility] Phone Number INTERFACE SYSTEM Refer to clinic/hospital department * (ABNORMAL) CBC WITH DIFFERENTIAL (05/01/2004 2:38 PM HR ADMINISTRATOR) NEUTROPHILS 71(H) 45 - 70 % INTERFAC E SYSTEM LYMPHOCYTES 22 16 - 45 % INTERFAC E SYSTEM MONOCYTES 6 3 - 13 % INTERFACE SYSTEM EOSINOPHILS 2 0 - 7 % INTERFAC E SYSTEM BASOPHILS 0 0 - 2 % INTERFACE SYSTEM NEUTROPHIL ABSOLUTE 4.61 1.90 - 7.00 K/uL INTERFACE SYSTEM LYMPHOCYTE ABSOLUTE 1.41 0.70 - 4.50 K/uL INTERFACE SYSTEM MONOCYTE ABSOLUTE 0.37 0.10 - 1.30 K/uL INTERFACE SYSTEM EOSINOPHIL ABSOLUTE 0.10 0.00 - 0.70 K/uL INTERFACE SYSTEM BASOPHILS ABSOLUTE 0.02 0.00 - 0.20 K/uL INTERFACE SYSTEM 05/01/2004 2:38 PM HR ADMINISTRATOR Ran Florence MD HEMATOLOGY ORDERABLES Final Re sult Performing Organization Address [facility] de Phone Number INTERFACE SYSTEM Refer to clinic/hospital department * CBC WITH DIFFERENTIAL (05/01/2004 2:38 PM HR ADMINISTRATOR) WBC 6.5 4.0 - 9.8 K/uL INTERFACE SYSTEM RBC 4.09 3.90 - 4.90 M/uL INTERFACE SYSTEM HEMOGLOBIN 12.8 11.8 - 14.8 g/dL INTERFACE SYSTEM HEMATOCRIT 37.9 35.5 - 44.0 % INTERFACE SYSTEM MCV 92.7 82.0 - 99.0 fL INTERFACE SYSTEM MCH 31.3 27.2 - 32.6 pg INTERFACE SYSTEM MCHC 33.8 31.5 - 35.5 % INTERFACE SYSTEM RDW 12.1 11.5 - 14.5 % INTERFACE SYSTEM RDW-STDEV 41.2 37.1 - 48.7 fL INTERFACE SYSTEM PLATELETS 302 140 - 350 K/uL INTERFACE SYSTEM MPV 10.2 9.3 - 12.4 fL INTERFACE SYSTEM 05/01/2004 2:38 PM HR ADMINISTRATOR Ran Florence MD HEMATOLOGY ORDERABLES Final Re sult Performing Organization Address [facility] de Phone Number INTERFACE SYSTEM Refer to clinic/hospital department documented in this encounter Visit Diagnoses Diagnosis Syncope and collapse- Primary documented in this encounter Care Teams Granite Polisher Machine Relationship Specialty Start Date End Date Tam Luis MD [address] [facility] [place] [address] PCP - General 05/01/04 07/18/22 documented as of this encounter
--- OUTSIDE RECORDS SUMMARY | 2024-08-17 13:23 | XMS_ITS | Clinical Summary ---
Author Organization [facility] Address [address] [place] [place] [address] Phone Care Team Providers Care Mailroom Clerk Name Role Phone Unavailable Primary Care Provider Unavailabl e Allergies Active Allergy Reactions Criticality Noted Date Comments Penicillins Rash Low 11/09/2010 Medications No known medications Active Problems Problem Noted Date Diagnosed Date Breast cancer 05/18/2014 Encounters Date Type Department Care Team Description 07/22/2024 External Device Data STL ABSTRACTION Provider, Abstract 07/21/2024 1:05 PM CDT Office Visit [facility] Oncology and Hematology [facility] [address] [facility] [address] [place] [phone] Vipul Rizvi MD 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, estrogen receptor positive (CMS/HCC) (Primary Dx) 07/21/2024 12:10 PM CDT - 07/21/2024 11:59 PM CDT Hospital Encounter [facility] Laboratory Services [facility] [address] [facility] [address] [place] [phone] Vipul Rizvi MD Discharge Disposition: Home or Self Care 07/21/2024 External Device Data STL ABSTRACTION Provider, Abstract 07/21/2024 Orders Only [facility] Radiation Oncology [address] [place] [address] Vipul Rizvi MD from Last 3 Months Social History Tobacco Use Types Packs/Day Years Used Date Smoking Tobacco: Never Tobacco Cessation:Counseling Given: Not Answered Alcohol Use Standard Drinks/Week Comments Not Asked 0 (1 standard drink = 0.6 oz pur e alcohol) Comments No Sex and Gender Information Value Date Recorded Sex Assigned at Not on file 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 Gender Identity Not on file Sexual Orientation Not on file Last Filed Vital Signs Vital Sign Reading Time Taken Comments Blood Pressure 124/76 07/21/2024 12:56 PM CDT Pulse 70 07/21/2024 12:56 PM CDT Temperature 36.8 C (98.3 F) 07/21/2024 12:56 PM CDT Respiratory Rate 18 07/21/2024 12:56 PM CDT Oxygen Saturation 94% 07/21/2024 12:56 PM CDT Inhaled Oxygen Concentration - - Weight 72 kg (158 lb 12.8 oz) 07/21/2024 12:56 P M CDT Height 154.9 cm (5' 1) 07/21/2024 12:56 PM CDT Body Mass Index 30 07/21/2024 12:56 PM CDT Plan of Treatment Upcoming Encounters Date Type Department Care Team (Late st Contact Info) Description 07/21/2025 12:05 PM CDT Appointment [facility] Laboratory Services [facility] [address], [place] [facility] [place] [address] Vipul Rizvi MD [address] [place] [address] 07/21/2025 1:05 PM CDT Office Visit [facility] Oncology and Hematology [facility] [address] [facility] [address] [place] [phone] Vipul Rizvi MD [address] [place] [address] Health Maintenance Due Date Last Done Comments DTAP/TDAP/TD VACCINES (1 - Tdap) 05/25/1970 FIT-DNA Q 3 years 05/25/1996 FIT/FOBT Q 1 year 05/25/1996 Flex Sig/CT Colonography Q 5 years 05/25/1996 PNEUMOCOCCAL VACCINE 50+ YEA RS (1 of 1 - PCV) 05/25/2001 ZOSTER VACCINE (1 of 2) 05/25/2001 BREAST CANCER SCREENING 08/13/2008 08/14/2007, 08/06 OSTEOPOROSIS SCREENING 11/15/2016 11/16/2011, 2007 INFLUENZA VACCINE (#1) 2023 12/08/2021 COVID-19 Vaccine (2 - 2023- season) 11/03/202309/2021 RSV VACCINE (60+ or ) (1 - 1-dose 75+ series) 05/25/2026 COLORECTAL SCREENING 10/15/2033 10/16/2023, 10/16/19 Colorectal Cancer Screening 10/15/2033 Procedures Procedure Name Priority Date/Time Associated Diagnosis Comments COMPREHENSIVE METABOLIC PANEL Stat 07/21/2024 12:13 PM CDT 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, estrogen receptor positive (CMS/HCC) CBC WITH DIFFERENTIAL Stat 07/21/2024 12:13 PM CDT 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, estrogen receptor positive (CMS/HCC) CANCER ANTIGEN 15-3 Stat 07/21/2024 1 2:13 PM CDT 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 Values obtained from different assay methods cannot be used interchangeably. CA 15-3 levels, regardless of value, should not be interpreted as absolute evidence of the presence or absence of disease. Test Performed at: [facility] [address] [place] [address] Markel Giraldo MD Blood 07/21/2024 12:1 3 PM CDT 07/21/2024 12:47 PM CDT us Vipul Rizvi MD CHEMISTRY ORDERABLES Final Resul t [facility] [phone] [facility] [address] [place] [address] * CBC WITH DIFFERENTIAL (07/21/2024 12:13 PM CDT) WBC 4.6 4.0 - 9.8 K/uL 07/21/2024 12:31 PM CDT [employer] LABORATORY SERVICES - [facility] RBC 4.21 3.90 - 4.90 M/uL 07/21/2024 12:31 PM CDT [employer] LABORATORY SERVICES - [facility] HEMOGLOBIN 13.7 11.8 - 14.8 g/dL 07/21/2024 12:31 PM CDT [employer] LABORATORY SERVICES - [facility] HEMATOCRIT 41.1 35.5 - 44.0 % 07/21/2024 12:31 PM CDT [facility] LABORATORY SERVICES - . [facility] MCV 97.6 82.0 - 99.0 fL 07/21/2024 12:31 PM CDT [employer] LABORATORY SERVICES - [facility] MCH 32.5 27.2 - 32.6 pg 07/21/2024 12:31 PM CDT [employer] [facility] SERVICES - [facility] MCHC 33.3 31.5 - 35.5 g/dL 07/21/2024 12:31 PM CDT [employer] LABORATORY SERVICES - [facility] RDW 12.1 11.5 - 14.5 % 07/21/2024 12:31 PM CDT [employer] [facility] - [facility] RDW-STDEV 43.5 37.1 - 48.7 fL 07/21/2024 12:31 PM CDT [employer] LAB[facility]ATORY SERVICES - [facility] PLATELETS 300 140 - 350 K/uL 07/21/2024 12:31 PM CDT [facility] SERVICES - [facility] MPV 9.9 9.3 - 12.4 fL 07/21/2024 12:31 PM CDT [employer] LABORATORY SERVICES - [facility] NEUTROPHILS 59 % 07/21/2024 12:31 PM CDT [facility] LYMPHOCYTES 28 % 07/21/2024 12:31 PM CDT [facility] MONOCYTES 10 % 07/21/2024 12:31 PM CDT [facility] EOSINOPHILS 3 % 07/21/2024 12:31 PM CDT [facility] BASOPHILS 1 % 07/21/2024 12:31 PM CDT [facility] IMMATURE GRANULOCYTES 0 % 07/21/2024 12:31 PM CDT [facility] NEUTROPHIL ABSOLUTE 2.66 1.90 - 7.00 K/uL 07/21/2024 12:31 PM CDT [facility] - [facility] LYMPHOCYTE ABSOLUTE 1.28 0.70 - 4.50 K/uL 07/21/2024 12:31 PM CDT [facility] - [facility] MONOCYTE ABSOLUTE 0.45 0.10 - 1.30 K/uL 07/21/2024 12:31 PM CDT [facility] EOSINOPHIL ABSOLUTE 0.12 0.00 - 0.70 K/uL 07/21/2024 12:31 PM CDT [facility] - [facility] BASOPHILS ABSOLUTE 0.03 0.00 - 0.20 K/uL 07/21/2024 12:31 PM CDT [facility] - . [facility] IMMATURE GRANULOCYTES ABSOLUTE 0.01 0.00 - 0.03 K/uL 07/21/2024 12:31 PM CDT [facility] Blood Venipuncture / Unknown 07/21/2024 12:13 PM CDT 07/21/2024 12:29 PM CDT us Vipul Rizvi MD HEMATOLOGY ORDERABLES Final Resu lt [facility] LABORATORY SERVICES - [facility] CLIA# [id number] [address] [facility] [place] [address] * (ABNORMAL) COMPREHENSIVE METABOLIC PANEL (07/21/2024 12:13 PM CDT) SODIUM 139 136 - 145 mmol/L 07/21/2024 12:52 PM CDT [employer] LABORATORY SERVICES - [facility] POTASSIUM 4.0 3.5 - 5.0 mmol/L 07/21/2024 12:52 PM CDT [employer] [facility] CHLORIDE 102 98 - 107 mmol/L 07/21/2024 12:52 PM CDT [employer] LABORATORY SERVICES - [facility] CO2 24 22 - 29 mmol/L 07/21/2024 12:52 PM CDT [employer] LABORATORY SERVICES - [facility] CALCIUM 9.7 8.6 - 10.2 mg/dL 07/21/2024 12:52 PM CDT [employer] LAB[facility]ATORY SERVICES - [facility] BUN 13 8 - 23 mg/dL 07/21/2024 12:52 PM CDT [employer] LABORATORY SERVICES - . [facility] CREATININE 0.70 0.51 - 0.95 mg/dL 07/21/2024 12:52 PM CDT [employer] LABORATORY SERVICES - . [facility] Comment:The GFR result is no t clinically significant on patients <18 or >70 years of age. GLUCOSE 91 74 - 99 mg/dL 07/21/2024 12:52 PM CDT [employer] LABORATORY SERVICES - . [facility] TOTAL PROTEIN 7.4 6.7 - 8.6 g/dL 07/21/2024 12:52 PM CDT [employer] LABORATORY SERVICES - [facility] ALBUMIN 4.6 3.5 - 5.2 g/dL 07/21/2024 12:52 PM CDT [employer] LAB[facility]ATORY SERVICES - . [facility] BILIRUBIN TOTAL 0.3 0.0 - 1.1 mg/dL 07/21/2024 12:52 PM CDT [employer] LABORATORY SERVICES - [facility] ALKALINE PHOSPHATASE 118(H) 35 - 104 U/L 07/21/2024 12:52 PM CDT [employer] LAB[facility]ATORY SERVICES - [facility] AST 23 <33 U/L 07/21/2024 12:52 PM CDT [employer] LAB[facility]ATORY SERVICES - . [facility] ALT 25 <34 U/L 07/21/2024 12:52 PM CDT [employer] LABORATORY SERVICES - . [facility] GFR >60 mL/min/1.7 3 sq meter 07/21/2024 12:52 PM CDT [facility]OR[facility]ORY [facility] Comment:eGFR calculated with 2020 CKD-EPI equation. Vegetarian diet, extremely high or low muscle mass, and may affect results. Cystatin C with Glomerular Filtration Rate is a suitable alternative for these patients. ANION GAP 13 8 - 16 mmol/L 07/21/2024 12:52 PM CDT [facility] Blood Venipuncture / Unknown 07/21/2024 12:13 PM CDT 07/21/2024 12:28 PM CDT Narrative [facility]ORATORY [facility] - 07/21/2024 12:52 PM CDT Samples containing indocyanine green cause interferences on Total and/or Direct Bilirubin and must not be measured. us Vipul Rizvi MD CHEMISTRY ORDERABLES Final Resul t [facility]# [id number] [address] [facility] [place] [address] * XR DEXA BONE DENSITY AXIAL 1 OR MORE SITES (11/16/2011 8:16 AM CDT) Anatomical Region Laterality Modality Digital Radiogra phy 11/16/2011 8:07 AM CDT Narrative 11/16/2011 8:29 AM CDT XR DEXA BONE DENSITY AXIAL 1 OR MORE SITES HISTORY: 61 yo F with postmenopausal symptoms on calcium supplementation with a history of breast carcinoma, treated with Arimidex needing evaluation for osteoporosis. PROCEDURE: Using a [employer] dual energy x-ray absorptiometry system, the patient's bone mineral density was measured over the lumbar spine, forearm and femoral necks. Comparison was made to age and sex matched normal values. The L3 vertebral body was excluded from bone mineral density measurements secondary to the presence of sclerotic degenerative changes. FINDINGS: Lumbar Spine ( L1-L4, - L3 ) Bone Mineral Density = 1.304 gm/cm2 Compared to young adult (T-score), difference of +1.1 Standard Deviations. The patient's spine BMD is above normal when compared to that of a young adult. Left Femoral Neck Bone Mineral Density = 0.772 gm/cm2 Compared to young adult (T-score), difference of -1.9 Standard Deviations. The patient's left femoral neck BMD is osteopenic when compared to that of a young adult. Right Femoral Neck Bone Mineral Density = 0.807 gm/cm2 Compared to young adult (T-score), difference of -1.7 Standard Deviations. The patient's right femoral neck BMD is osteopenic when compared to that of a young adult. Left Radius 33% Bone Mineral Density = 0.824 gm/cm2 Compared to young adult (T-score), difference of -0.6 Standard Deviations. The patient's left Radius 33% BMD is normal when compared to that of a young adult. Comparison is made to the most recent measurements of BMD dated 10/14/2007. The prior spine ( L1-L4, - L3 ) BMD was 1.362 gm/cm2. Today's value represents a change of -4.3%, a statistically significant change. The prior left femoral neck BMD was 0.839 gm/cm2. Today's value represents a change of -8.0%, a statistically significant change. The prior right femoral neck BMD was 0.857 gm/cm2. Today's value represents a change of -5.8%, a statistically significant change. No prior left forearm bone mineral density measurements are available for comparison. A significant change is defined as a change of at least 2.5 standard deviations since the prior study. Procedure Note Mert Mccrary DO - 11/16/2011 XR DEXA BONE DENSITY AXIAL 1 OR MORE SITES HISTORY: 61 yo F with postmenopausal symptoms on calcium supplementation with a history of breast carcinoma, treated with Arimidex needing evaluation for osteoporosis. PROCEDURE: Using a [employer] dual energy x-ray absorptiometry system, the patient's bone mineral density was measured over the lumbar spine, forearm and femoral necks. Comparison was made to age and sex matched normal values. The L3 vertebral body was excluded from bone mineral density measurements secondary to the presence of sclerotic degenerative changes. FINDINGS: Lumbar Spine ( L1-L4, - L3 ) Bone Mineral Density = 1.304 gm/cm2 Compared to young adult (T-score), difference of +1.1 Standard Deviations. The patient's spine BMD is above normal when compared to that of a young adult. Left Femoral Neck Bone Mineral Density = 0.772 gm/cm2 Compared to young adult (T-score), difference of -1.9 Standard Deviations. The patient's left femoral neck BMD is osteopenic when compared to that of a young adult. Right Femoral Neck Bone Mineral Density = 0.807 gm/cm2 Compared to young adult (T-score), difference of -1.7 Standard Deviations. The patient's right femoral neck BMD is osteopenic when compared to that of a young adult. Left Radius 33% Bone Mineral Density = 0.824 gm/cm2 Compared to young adult (T-score), difference of -0.6 Standard Deviations. The patient's left Radius 33% BMD is normal when compared to that of a young adult. Comparison is made to the most recent measurements of BMD dated 10/14/2007. The prior spine ( L1-L4, - L3 ) BMD was 1.362 gm/cm2. Today's value represents a change of -4.3%, a statistically significant change. The prior left femoral neck BMD was 0.839 gm/cm2. Today's value represents a change of -8.0%, a statistically significant change. The prior right femoral neck BMD was 0.857 gm/cm2. Today's value represents a change of -5.8%, a statistically significant change. No prior left forearm bone mineral density measurements are available for comparison. A significant change is defined as a change of at least 2.5 standard deviations since the prior study. Vipul Rizvi MD DIAGNOSTIC IMAGING ORDERABLES Fi nal Result * MAMMO DIGITAL DIAG UNI LEFT (08/14/2007 3:09 PM CDT) Anatomical Region Laterality Modality Breast Left Other 08/14/2007 3:09 PM CDT Narrative 08/18/2007 11:32 AM CDT [facility] [address], [place] [address] Admit Date: 08/14/2007 KALYN DUFF Sex: F Admit Prov: SONIA BARAHONA Date: 1950 Primary Care Prov: HAWA FUENTES CMRN: [id number] Room: MRI-A SSN: [id number] IMAGING SERVICES Ordering Prov: AUDREY SONIA Accession Number: [id number] Addendum The pathology from the patient's recent left breast MRI guided core biopsy revealed invasive ductal carcinoma, low-grade; ductal carcinoma in situ, intermediate grade. This is malignant and concordant. Patient will be informed of the above findings by Dr. Sonia Barahona who will plan all further care of [...] AMK Procedure Note Kristan Salomon - 08/18/2007 [facility] [address], [place] [address] Admit Date: 08/14/2007 KALYN DUFF Sex: F Admit Prov: SONIA BARAHONA Date: 1950 Primary Care Prov: JOSHFLORKarma HAWA E CMRN: [id number] Room: [facility] SSN: [id number] IMAGING SERVICES Ordering Prov: SONIA BARAHONA Addendum The pathology from the patient's recent left breast MRI guided corebiopsy revealed invasive ductal carcinoma, low-grade; ductal carcinoma insitu, intermediate grade. This is malignant and concordant. Patient willbe informed of the above findings by Dr. Sonia Barahona who will planall further care of this [...] 08/15/2007 14:31 Transcribed: 08/15/2007 04:50 AMK Sonia Barahona MD MAMMO ORDERABLES Edited from Last 3 Months or Most Recently Relevant to Health Maintenance Insurance MEDICARE PART A AND B [employer] MED[employer]ARE SUPP [facility]
--- OUTSIDE RECORDS SUMMARY | 2024-08-17 13:23 | XMS_ITS | Encounter Summary ---
Author Organization [facility] Address 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 Gender Identity Not on file Sexual Orientation Not on file documented as of this encounter Plan of Treatment Upcoming Encounters Date Type Department Care Team (Late st Contact Info) Description 07/21/2025 12:05 PM CDT Appointment [facility] Laboratory Services [facility] [address] [place] [id number] [place] [address] Vipul Rizvi MD [address] [place] [address] 07/21/2025 1:05 PM CDT Office Visit [facility] Oncology and Hematology [facility] [address] [address] Vipul Rizvi MD [address] [place] [address] documented as of this encounter Procedures Procedure Name Priority Date/Time Associated Diagnosis Comments CBC WITH DIFFERENTIAL Stat 10/07/2007 10:26 AM CDT COMPREHENSIVE METABOLIC PANEL Stat 10/07/2007 10:26 AM CDT documented in this encounter Results * COMPREHENSIVE METABOLIC PANEL (10/07/2007 10:26 AM CDT) CALCIUM 9.2 8.6 - 10.2 mg/dL [facility] Comment:Note new reference r elton effective 10/02/07 CHLORIDE 104 96 - 108 mmol/L [facility] ALBUMIN 4.5 3.4 - 4.8 g/dL [facility] CREATININE 0.62 0.51 - 0.95 mg/dL [facility] SODIUM 142 135 - 145 mmol/L [facility] ALT 21 0 - 31 U/L [facility] ALKALINE PHOSPHATASE 86 35 - 104 U/L [facility] BILIRUBIN TOTAL 0.4 0.2 - 1.0 mg/dL [facility] CO2 27 22 - 30 mmol/L [facility] TOTAL PROTEIN 6.9 6.3 - 8.6 g/dL [facility] POTASSIUM 3.9 3.5 - 4.9 mmol/L [facility] GLUCOSE 87 65 - 99 mg/dL [facility] AST 16 12 - 32 U/L [facility] BUN 15 6 - 20 mg/dL [facility] GFR, >60 >=60 mL/min/1.[address] [facility] GFR >60 >=60 mL/min/1.[address] [facility] Comment: Modification of Diet in Renal Disease (MDRD) study formula. Estimated GFR rate interpretative information for both Americans and non- Americans is available on the [facility] Intranet at: [email or web address] Select: Lab Policies and Procedures Select: Reference Ranges - GFR Blood specimen (specimen) 10/07/2007 10:26 AM CDT 10/07/2007 10:56 AM CDT Yousif Hu CHEMISTRY ORDERABLES Edited [facility] CLIA# [id number] [address] [place] [address] * (ABNORMAL) CBC WITH DIFFERENTIAL (10/07/2007 10:26 AM CDT) MPV 9.6 9.3 - 12.[address] [facility] HEMATOCRIT 33.7(L) 35.5 - 44.0 % [facility] RDW-STDEV 42.1 37.1 - 48.[address] [facility] RBC 3.74(L) 3.90 - 4.90 M/uL [facility] MCHC 34.1 31.5 - 35.5 % [facility] MCV 90.1 82.0 - 99.[address] [facility] PLATELETS 239 140 - 350 K/uL [facility] HEMOGLOBIN 11.5(L) 11.8 - 14.8 g/dL [facility] RDW 12.7 11.5 - 14.5 % [facility] WBC 3.0(L) 4.0 - 9.8 K/uL [facility] MCH 30.7 27.2 - 32.[address] [facility] BASOPHILS 1 0 - 2 % [facility] MONOCYTES 8 3 - 13 % [facility] MONOCYTE ABSOLUTE 0.25 0.10 - 1.30 K/uL [facility] EOSINOPHIL ABSOLUTE 0.13 0.00 - 0.70 K/uL [facility] NEUTROPHILS 58 45 - 70 % [facility] NEUTROPHIL ABSOLUTE 1.77(L) 1.90 - 7.00 K/uL [facility] BASOPHILS ABSOLUTE 0.02 0.00 - 0.20 K/uL [facility] EOSINOPHILS 4 0 - 7 % [facility] LYMPHOCYTES 28 16 - 45 % [facility] LYMPHOCYTE ABSOLUTE 0.86 0.70 - 4.50 K/uL [facility] Blood specimen (specimen) 10/07/2007 10:26 AM CDT 10/07/2007 10:56 AM CDT Hsiaoou Hu HEMATOLOGY ORDERABLES Edited INTERFACE SYSTEM Refer to clinic/hospital department [facility] CLIA# [id number] [address] [place] [address] documented in this encounter Visit Diagnoses Diagnosis Malignant neoplasm of breast (female), unspecified site documented in this encounter Care Teams Truck Cleaner Relationship Specialty Start Date End Date Tam Luis MD [address] [place] [id number] PCP - General 05/01/04 07/18/22 documented as of this encounter
--- OUTSIDE RECORDS SUMMARY | 2024-08-17 13:23 | XMS_ITS | Encounter Summary ---
Author Organization [facility] Address [address] [place] [address] Care Team Providers Care Rodding Anode Worker Name Role Phone Tam Luis MD Primary Care Provider [phone] Encounter Details Date Type Department Care Team (Late st Contact Info) Description 02/10/2007 Outpatient Historical [facility] Support Serv. (Adt Cardiology-[facility]) [address] 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 Gender Identity Not on file Sexual Orientation Not on file documented as of this encounter Plan of Treatment Upcoming Encounters Date Type Department Care Team (Late st Contact Info) Description 07/21/2025 12:05 PM CDT Appointment [facility] Laboratory Services Daniel Cartwright [facility] [address] [place] [address] Vipul Rizvi MD [address] [place] [address] 07/21/2025 1:05 PM CDT Office Visit [facility] Oncology and Hematology [facility] [address] [place] [address] Vipul Rizvi MD [address] [place], [place] [phone] documented as of this encounter Visit Diagnoses Not on filedocumented in this encounter Care Teams Rodding Anode Worker Relationship Specialty Start Date End Date Tam Luis MD [address] [place] [address] PCP - General 05/01/04 07/18/22 documented as of this encounter
--- OUTSIDE RECORDS SUMMARY | 2024-08-17 13:23 | XMS_ITS | Encounter Summary ---
Author Organization [facility] Address 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 Gender Identity Not on file Sexual Orientation Not on file documented as of this encounter Plan of Treatment Upcoming Encounters Date Type Department Care Team (Late st Contact Info) Description 07/21/2025 12:05 PM CDT Appointment [facility] Laboratory Services [facility] [address] [place] [address] [place] [address] Vipul Rizvi MD [address] [place] [phone] 07/21/2025 1:05 PM CDT Office Visit [facility] Oncology and [facility] [address] [address] Vipul Rizvi MD [address] [place] [phone] documented as of this encounter Procedures Procedure Name Priority Date/Time Associated Diagnosis Comments XR CHEST PA AND LATERAL 2 VW Routine 05/18/2008 7:44 AM CDT CBC WITH DIFFERENTIAL Stat 05/18/2008 7:20 AM CDT COMPREHENSIVE METABOLIC PANEL Stat 05/18/2008 7:20 AM CDT documented in this encounter Results * XR CHEST PA AND LATERAL (05/18/2008 7:44 AM CDT) Anatomical Region Laterality Modality Chest Other 05/18/2008 7:44 AM CDT Narrative 05/18/2008 10:51 AM CDT [facility] [address], [place] [address] Admit Date: 05/18/2008 KALYN DUFF Sex: F Admit Prov: YOUSIF RIZVI Date: 1950 Primary Care Prov: HAWA FUENTES CMRN: [id number] Room: [facility] SSN: [id number] IMAGING SERVICES Ordering Prov: N/A Accession Number: [id number] Interpretation CHEST 2 VIEWS 05/18/08 Clinical History: 174.9, breast carcinoma Findings: PA and lateral views of the chest were performed and compared to the previous AP portable upright chest radiograph from 02/11/2007 at 1415 hours. Since the previous exam the Port-A-Cath has been removed. There is no evidence of acute infiltrates, pleural effusion, or pneumothorax. The heart and mediastinum are stable in appearance. Surgical clips are present in the right upper quadrant which are probably secondary to prior cholecystectomy. OPINION: No evidence of active pulmonary disease. . Dictated by: MADELAINE ELI 05/18/2008 08:10 Electronically signed by: MADELAINE ELI 05/18/2008 10:50 Transcribed: 05/18/2008 08:57 Procedure Note Madelaine Eli MD - 05/18/2008 [id number] [place], [place] [address] Admit Date: 05/18/2008 KALYN DUFF Sex: F Admit Prov: YOUSIF RIZVI Date: 1950 Primary Care Prov: HAWA FUENTES CMRN: [id number] Room: [facility] SSN: [id number] IMAGING SERVICES Ordering Prov: N/A Interpretation CHEST 2 VIEWS 05/18/08 Clinical History: 174.9, breast carcinoma Findings: PA and lateral views of the chest were performed andcompared to the previous AP portable upright chest radiograph from 02/11/2007 [id number] hours. Since the previous exam the Port-A-Cath has been removed.There is no evidence of acute infiltrates, pleural effusion, or pneumothorax.The heart and mediastinum are stable in appearance. Surgical clips arepresent in the right upper quadrant which are probably secondary to prior cholecystectomy. OPINION: No evidence of active pulmonary disease. . Dictated by: MADELAINE ELI 05/18/2008 08:10 Electronically signed by: MADELIANE ELI 05/18/2008 10:50 Transcribed: 05/18/2008 08:57 Yousif Rizvi DIAGNOSTIC IMAGING ORDERABLES Fi nal Result * (ABNORMAL) COMPREHENSIVE METABOLIC PANEL (05/18/2008 7:20 AM CDT) CHLORIDE 104 96 - 108 mmol/L [facility] ALBUMIN 4.7 3.4 - 4.8 g/dL [facility] CREATININE 0.89 0.51 - 0.95 mg/dL [facility] SODIUM 143 135 - 145 mmol/L [facility] ALT 28 0 - 31 U/L [facility] ALKALINE PHOSPHATASE 102 35 - 104 U/L [facility] BILIRUBIN TOTAL 0.4 0.2 - 1.0 mg/dL [facility] CO2 31(H) 22 - 30 mmol/L [facility] TOTAL PROTEIN 7.3 6.3 - 8.6 g/dL [facility] POTASSIUM 3.7 3.5 - 4.9 mmol/L [facility] GLUCOSE 67 65 - 99 mg/dL [facility] AST 20 12 - 32 U/L [facility] BUN 11 6 - 20 mg/dL [facility] CALCIUM 9.9 8.6 - 10.2 mg/dL [facility] GFR, >60 >=60 mL/min/1.7 sq meter [facility] GFR >60 >=60 mL/min/1.7 sq meter [facility] Comment: Modification of Diet in Renal Disease (MDRD) study formula. Estimated GFR rate interpretative information for both Americans and non- Americans is available on the [facility] Intranet at: [email or web address] Select: Lab Policies and Procedures Select: Reference Ranges - GFR Blood specimen (specimen) 05/18/2008 7:20 AM CDT 05/18/2008 7:25 AM CDT Hsiaoou Hu CHEMISTRY ORDERABLES Edited INTERFACE SYSTEM Refer to clinic/hospital department [facility] CLIA# [id number] [address] [place] [address] * (ABNORMAL) CBC WITH DIFFERENTIAL (05/18/2008 7:20 AM CDT) WBC 3.9(L) 4.0 - 9.8 K/uL [facility] MCH 31.7 27.2 - 32.6 pg [facility] MPV 9.7 9.3 - 12.4 fL [facility] HEMATOCRIT 36.0 35.5 - 44.0 % [facility] RDW-STDEV 39.9 37.1 - 48.7 fL [facility] RBC 3.88(L) 3.90 - 4.90 M/uL [facility] MCHC 34.2 31.5 - 35.5 % [facility] MCV 92.8 82.0 - 99.0 fL [facility] PLATELETS 240 140 - 350 K/uL [facility] HEMOGLOBIN 12.3 11.8 - 14.8 g/dL [facility] RDW 11.7 11.5 - 14.5 % [facility] BASOPHILS 1 0 - 2 % [facility] BASOPHILS ABSOLUTE 0.02 0.00 - 0.20 K/uL [facility] MONOCYTES 10 3 - 13 % [facility] MONOCYTE ABSOLUTE 0.40 0.10 - 1.30 K/uL [facility] NEUTROPHILS 56 45 - 70 % [facility] NEUTROPHIL ABSOLUTE 2.19 1.90 - 7.00 K/uL [facility] EOSINOPHILS 6 0 - 7 % [facility] EOSINOPHIL ABSOLUTE 0.25 0.00 - 0.70 K/uL [facility] LYMPHOCYTES 27 16 - 45 % [facility] LYMPHOCYTE ABSOLUTE 1.04 0.70 - 4.50 K/uL [facility] Blood specimen (specimen) 05/18/2008 7:20 AM CDT 05/18/2008 7:25 AM CDT us Hsiaoou Hu HEMATOLOGY ORDERABLES Edited INTERFACE SYSTEM Refer to clinic/hospital department [facility] CLIA# [id number] [address] [place], [place] [address] documented in this encounter Visit Diagnoses Diagnosis Malignant neoplasm of breast (female), unspecified site documented in this encounter Care Teams Assistant Prosecuting Attorney Relationship Specialty Start Date End Date Hawa Fuentes MD [address] [place] [address] PCP - General 05/01/04 07/18/22 documented as of this encounter
--- OUTSIDE RECORDS SUMMARY | 2024-08-17 13:23 | XMS_ITS | Encounter Summary ---
Author Organization [facility] Address [address] [place] [address] Care Team Providers Care Family And Consumer Science Professor Name Role Phone Tam Luis MD Primary Care Provider [phone] Encounter Details Date Type Department Care Team (Late st Contact Info) Description 05/03/2004 Outpatient Historical [facility] Support [facility] (Adt Cardiology-[facility]) [address] 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 Gender Identity Not on file Sexual Orientation Not on file documented as of this encounter Plan of Treatment Upcoming Encounters Date Type Department Care Team (Late st Contact Info) Description 07/21/2025 12:05 PM CDT Appointment [facility] Laboratory Services Daniel Cartwright [facility] [address] [place] [address] Vipul Rizvi MD [address] [place] [address] 07/21/2025 1:05 PM CDT Office Visit [facility] Oncology and Hematology [facility] [address] [place] [address] Vipul Rizvi MD [address] [place] [address] documented as of this encounter Visit Diagnoses Not on filedocumented in this encounter Care Teams Family And Consumer Science Professor Relationship Specialty Start Date End Date Tam Luis MD [address] [place] [address] PCP - General 05/01/04 07/18/22 documented as of this encounter
--- OUTSIDE RECORDS SUMMARY | 2024-08-17 13:23 | XMS_ITS | Encounter Summary ---
Author Organization [facility] Address 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 Gender Identity Not on file Sexual Orientation Not on file documented as of this encounter Plan of Treatment Upcoming Encounters Date Type Department Care Team (Late st Contact Info) Description 07/21/2025 12:05 PM CDT Appointment [facility] Laboratory Services [facility] [address] [place] [address] [place] [address] Vipul Rizvi MD [address] [place] [phone] 07/21/2025 1:05 PM CDT Office Visit [facility] Oncology and Hematology [facility] [address] [address] Vipul Rizvi MD [address] [place] [phone] documented as of this encounter Visit Diagnoses Diagnosis Malignant neoplasm of breast (female), unspecified site documented in this encounter Care Teams Contact Center Director Relationship Specialty Start Date End Date Tam Luis MD [address] [place] [address] PCP - General 05/01/04 07/18/22 documented as of this encounter
--- OUTSIDE RECORDS SUMMARY | 2024-08-17 13:23 | XMS_ITS | Encounter Summary ---
Author Organization [facility] Address 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 Gender Identity Not on file Sexual Orientation Not on file documented as of this encounter Plan of Treatment Upcoming Encounters Date Type Department Care Team (Late st Contact Info) Description 07/21/2025 12:05 PM CDT Appointment [facility] Laboratory Services [facility] [address] [place] [address] [id number] [place] [address] Vipul Rizvi MD [address] [place] [address] 07/21/2025 1:05 PM CDT Office Visit [facility] Oncology and Hematology [facility] [address] [address] Vipul Rizvi MD [address] [place] [address] documented as of this encounter Procedures Procedure Name Priority Date/Time Associated Diagnosis Comments CBC WITH DIFFERENTIAL Stat 11/18/2007 8:26 AM CDT COMPREHENSIVE METABOLIC PANEL Stat 11/18/2007 8:26 AM CDT documented in this encounter Results * COMPREHENSIVE METABOLIC PANEL (11/18/2007 8:26 AM CDT) CO2 27 22 - 30 mmol/L [facility] TOTAL PROTEIN 6.5 6.3 - 8.6 g/dL [facility] POTASSIUM 4.1 3.5 - 4.9 mmol/L [facility] GLUCOSE 88 65 - 99 mg/dL [facility] AST 23 12 - 32 U/L [facility] BUN 11 6 - 20 mg/dL [facility] CALCIUM 9.6 8.6 - 10.2 mg/dL [facility] CHLORIDE 105 96 - 108 mmol/L [facility] ALBUMIN 4.4 3.4 - 4.8 g/dL [facility] CREATININE 0.59 0.51 - 0.95 mg/dL [facility] SODIUM 141 135 - 145 mmol/L [facility] ALT 28 0 - 31 U/L [facility] ALKALINE PHOSPHATASE 84 35 - 104 U/L [facility] BILIRUBIN TOTAL 0.2 0.2 - 1.0 mg/dL [facility] GFR, >60 >=60 mL/min/1.7 sq meter [facility] GFR >60 >=60 mL/min/1.7 sq meter [facility] Comment: Modification of Diet in Renal Disease (MDRD) study formula. Estimated GFR rate interpretative information for both Americans and non- Americans is available on the [facility] Intranet at: [email or web address] for [email or web address] hospitalCardiac [email or web address] Select: Lab Policies and Procedures Select: Reference Ranges - GFR Blood specimen (specimen) 11/18/2007 8:26 AM CDT 11/18/2007 8:42 AM CDT Yousif Rizvi CHEMISTRY ORDERABLES Edited INTERFACE SYSTEM Refer to clinic/hospital department [facility] CLIA# [id number] [address] [place] [address] * (ABNORMAL) CBC WITH DIFFERENTIAL (11/18/2007 8:26 AM CDT) RBC 3.73(L) 3.90 - 4.90 M/uL [facility] MCHC 34.4 31.5 - 35.5 % [facility] MCV 91.2 82.0 - 99.0 fL [facility] PLATELETS 235 140 - 350 K/uL [facility] HEMOGLOBIN 11.7(L) 11.8 - 14.8 g/dL [facility] RDW 12.0 11.5 - 14.5 % [facility] WBC 3.7(L) 4.0 - 9.8 K/uL [facility] MCH 31.4 27.2 - 32.6 pg [facility] MPV 9.0(L) 9.3 - 12.4 fL [facility] HEMATOCRIT 34.0(L) 35.5 - 44.0 % [facility] RDW-STDEV 40.3 37.1 - 48.7 fL [facility] NEUTROPHILS 60 45 - 70 % [facility] NEUTROPHIL ABSOLUTE 2.22 1.90 - 7.00 K/uL [facility] EOSINOPHILS 5 0 - 7 % [facility] EOSINOPHIL ABSOLUTE 0.17 0.00 - 0.70 K/uL [facility] LYMPHOCYTES 26 16 - 45 % [facility] LYMPHOCYTE ABSOLUTE 0.96 0.70 - 4.50 K/uL [facility] BASOPHILS 1 0 - 2 % [facility] BASOPHILS ABSOLUTE 0.02 0.00 - 0.20 K/uL [facility] MONOCYTES 9 3 - 13 % [facility] MONOCYTE ABSOLUTE 0.32 0.10 - 1.30 K/uL [facility] Blood specimen (specimen) 11/18/2007 8:26 AM CDT 11/18/2007 8:42 AM CDT Hsiaoou Hu HEMATOLOGY ORDERABLES Edited INTERFACE SYSTEM Refer to clinic/hospital department [facility] CLIA# [id number] [address] [place] [address] documented in this encounter Visit Diagnoses Diagnosis Malignant neoplasm of breast (female), unspecified site documented in this encounter Care Teams Medical And Health Services Manager Relationship Specialty Start Date End Date Tam Luis MD [address] [place] [address] PCP - General 05/01/04 07/18/22 documented as of this encounter
--- OUTSIDE RECORDS SUMMARY | 2024-08-17 13:23 | XMS_ITS | Encounter Summary ---
Author Organization [facility] Address [address] [place] [address] Care Team Providers Care Activities Attendant Name Role Phone Tam Luis MD Primary Care Provider [phone] Encounter Details Date Type Department Care Team (Late st Contact Info) Description 11/20/2007 Outpatient Historical [facility] Sonia Barahona MD [address] [place] [address] [address] [address] Malignant Neoplasm of Breast (Female), Unspecified Site (CMS/HCC) Social History Tobacco Use Types Packs/Day Years Used Date Smoking Tobacco: Never Assessed Comments Unknown Sex and Gender Information Value Date Recorded Sex Assigned at Not on file 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 Gender Identity Not on file Sexual Orientation Not on file documented as of this encounter Plan of Treatment Upcoming Encounters Date Type Department Care Team (Late Contact Info) Description 07/21/2025 12:05 PM CDT Appointment [facility] Laboratory Services Daniel [facility] [address] [place] [address] Vipul Rizvi MD [address] [place] [address] 07/21/2025 1:05 PM CDT Office Visit [facility] Oncology and Hematology [facility] [address] [place] [address] Vipul Rizvi MD [address] [facility] [address] [address] [place] [address] documented as of this encounter Visit Diagnoses Diagnosis Malignant neoplasm of breast (female), unspecified site documented in this encounter Care Teams Activities Attendant Relationship Specialty Start Date End Date Tam Luis MD [address] [facility] [place] [address] PCP - General 05/01/04 07/18/22 documented as of this encounter
--- OUTSIDE RECORDS SUMMARY | 2024-08-17 13:23 | XMS_ITS | Encounter Summary ---
Author Organization [facility] Address [address] [place] [address] Care Team Providers Care Educational Psychology Professor Name Role Phone Tam Luis MD Primary Care Provider [phone] Encounter Details Date Type Department Care Team (Late st Contact Info) Description 02/06/2007 Outpatient Historical [facility] Sonia Barahona MD [address] [place] [address] [address] [address] Malignant Neoplasm of Breast (Female), Unspecified Site (CMS/HCC) Social History Tobacco Use Types Packs/Day Years Used Date Smoking Tobacco: Never Assessed Comments Unknown Sex and Gender Information Value Date Recorded Sex Assigned at Not on file 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 Gender Identity Not on file Sexual Orientation Not on file documented as of this encounter Plan of Treatment Upcoming Encounters Date Type Department Care Team (Late Contact Info) Description 07/21/2025 12:05 PM CDT Appointment [facility] Laboratory Services Daniel [facility] [address] [place] [address] Vipul Rizvi MD [address] [place] [address] 07/21/2025 1:05 PM CDT Office Visit [facility] Oncology and Hematology [facility] [address] [place] [address] Vipul Rizvi MD [address] [facility] [address] [place] [address] documented as of this encounter Procedures Procedure Name Priority Date/Time Associated Diagnosis Comments HEMOGLOBIN AND HEMATOCRIT Routine 02/10/2007 1:14 PM LEVEL GLASS VIAL FILLER documented in this encounter Results * HEMOGLOBIN AND HEMATOCRIT (02/10/2007 1:14 PM LEVEL GLASS VIAL FILLER) HEMOGLOBIN 12.4 11.8 - 14.8 g/dL INTERFACE SYSTEM HEMATOCRIT 36.4 35.5 - 44.0 % INTERFACE SYSTEM 02/10/2007 1:14 PM LEVEL GLASS VIAL FILLER us Sonia Barahona MD HEMATOLOGY ORDERABLES Edited INTERFACE SYSTEM Refer to clinic/hospital department documented in this encounter Visit Diagnoses Diagnosis Malignant neoplasm of breast (female), unspecified site documented in this encounter Care Teams Educational Psychology Professor Relationship Specialty Start Date End Date Tam Luis MD [address] [place] [address] PCP - General 05/01/04 07/18/22 documented as of this encounter
--- OUTSIDE RECORDS SUMMARY | 2024-08-17 13:23 | XMS_ITS | Encounter Summary ---
Author Organization [facility] Address [address] [place] [address] Care Team Providers Care Visual Journalist Name Role Phone Tam Luis MD Primary Care Provider [phone] Encounter Details Date Type Department Care Team (Late st Contact Info) Description 02/12/2007 Outpatient Historical [facility] Cardiology 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 Gender Identity Not on file Sexual Orientation Not on file documented as of this encounter Plan of Treatment Upcoming Encounters Date Type Department Care Team (Late st Contact Info) Description 07/21/2025 12:05 PM CDT Appointment [facility] Laboratory Services [facility] Cart[facility] [address], [facility] [address] [place] [address] Vipul Rizvi MD [address] [place], [place] [id number] 07/21/2025 1:05 PM CDT Office Visit [facility] Oncology and Hematology [facility] [address] [place] [address] Vipul Rizvi MD [address] [place], [place] [id number] documented as of this encounter Visit Diagnoses Not on filedocumented in this encounter Care Teams Visual Journalist Relationship Specialty Start Date End Date Tam Luis MD [address] [id number] PCP - General 05/01/04 07/18/22 documented as of this encounter
--- OUTSIDE RECORDS SUMMARY | 2024-08-17 13:23 | XMS_ITS | Encounter Summary ---
Author Organization [facility] Address [address] [place] [address] Care Team Providers Care Printed Circuit Board Preassembler Name Role Phone Tam Luis MD Primary Care Provider [phone] Encounter Details Date Type Department Care Team (Late Contact Info) Description 05/02/2004 Outpatient Historical Division of Neurology [address] [place], [place] [id number] (Excluded Provider) [place] [address] [place], [place] [id number] Social History Tobacco Use Types Packs/Day Years Used Date Smoking Tobacco: Never Assessed Comments Unknown Sex and Gender Information Value Date Recorded Sex Assigned at Not on file Legal Sex Female 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 MANAGER THERAPY Gender Identity Not on file Sexual Orientation Not on file documented as of this encounter Plan of Treatment Upcoming Encounters Date Type Department Care Team (Late st Contact Info) Description 07/21/2025 12:05 PM CDT Appointment [facility] Laboratory Services [facility] [address] [place] [place] [address] Vipul Rizvi MD [address] [place] [address] 07/21/2025 1:05 PM CDT Office Visit [facility] Oncology and Hematology [facility] [address] [place] [address] Vipul Rizvi MD [address] [place] [address] documented as of this encounter Visit Diagnoses Not on filedocumented in this encounter Care Teams Printed Circuit Board Preassembler Relationship Specialty Start Date End Date Tam Luis MD [address] [facility] [place] [address] PCP - General 05/01/04 07/18/22 documented as of this encounter
--- OUTSIDE RECORDS SUMMARY | 2024-08-17 13:23 | XMS_ITS | Encounter Summary ---
Author Organization [facility] Address [address] [place] [address] Care Team Providers Care Videogame Designer Name Role Phone Tam Luis MD Primary Care Provider [phone] Encounter Details Date Type Department Care Team (Late st Contact Info) Description 05/01/2004 Outpatient Historical [facility] [address] 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 TECHNICAL PLANNER Gender Identity Not on file Sexual Orientation Not on file documented as of this encounter Plan of Treatment Upcoming Encounters Date Type Department Care Team (Late st Contact Info) Description 07/21/2025 12:05 PM CDT Appointment [facility] Laboratory Services [facility] [address], [address] [place] [address] Vipul Rizvi MD [address] [place] [address] 07/21/2025 1:05 PM CDT Office Visit [facility] Oncology and Hematology [facility] [address] [place] [address] Vipul Rizvi MD [address] [place] [address] documented as of this encounter Visit Diagnoses Not on filedocumented in this encounter Care Teams Videogame Designer Relationship Specialty Start Date End Date Tam Luis MD [address] [place] [address] PCP - General 05/01/04 07/18/22 documented as of this encounter
--- OUTSIDE RECORDS SUMMARY | 2024-08-17 13:23 | XMS_ITS | Encounter Summary ---
Author Organization [facility] Address [address] [place] [address] Care Team Providers Care Financial Administration Officer Name Role Phone Tam Luis MD Primary Care Provider [phone] Encounter Details Date Type Department Care Team (Late st Contact Info) Description 02/07/2007 Outpatient Historical [facility] Sonia Barahona MD [address] [place] [address] [address] [address] Malignant Neoplasm of Breast (Female), Unspecified Site (CMS/HCC) Social History Tobacco Use Types Packs/Day Years Used Date Smoking Tobacco: Never Assessed Comments Unknown Sex and Gender Information Value Date Recorded Sex Assigned at Not on file 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 Gender Identity Not on file Sexual Orientation Not on file documented as of this encounter Plan of Treatment Upcoming Encounters Date Type Department Care Team (Late Contact Info) Description 07/21/2025 12:05 PM CDT Appointment [facility] Laboratory Services [facility] [address], [address] [place] [address] Vipul Rizvi MD [address] [place] [address] 07/21/2025 1:05 PM CDT Office Visit [facility] Oncology and Hematology [facility] [address] [place] [address] Vipul Rizvi MD [address] [place] [address] documented as of this encounter Procedures Procedure Name Priority Date/Time Associated Diagnosis Comments POC CREATININE Routine 02/07/2007 9:39 AM SKATE HOP documented in this encounter Results * POC CREATININE (02/07/2007 9:39 AM SKATE HOP) CREATININE POC 0.7 0.6 - 1.3 mg/dL INTERFACE SYSTEM 02/07/2007 9:39 AM SKATE HOP us Sonia Barahona MD POINT OF CARE TESTING Edited INTERFACE SYSTEM Refer to clinic/hospital department documented in this encounter Visit Diagnoses Diagnosis Malignant neoplasm of breast (female), unspecified site documented in this encounter Care Teams Financial Administration Officer Relationship Specialty Start Date End Date Tam Luis MD [address] [place] [address] PCP - General 05/01/04 07/18/22 documented as of this encounter
--- OUTSIDE RECORDS SUMMARY | 2024-08-17 13:23 | XMS_ITS | Clinical Summary ---
Author Organization [facility] Address [address] [place] [address] Care Team Providers Care Sonar Technician Name Role Phone Unavailable Primary Care Provider Unavailabl e Source Comments [facility],non-owned Affiliates and Associated Physician Practices is amultiple site organization consisting of ambulatory clinics and hospital sitesin [place], [place], [place] and [place]. This disclosure is being madepursuant to the Care Everywhere program and may not contain all information available regarding this patient. 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 Gender Identity Not on file Sexual Orientation Not on file Plan of Treatment Health Maintenance Due Date Last Done Comments BONE DENSITY TESTING 1950 COLOGUARD (AGES 45-75) - COL ON CA SCREENING 1950 COLON MONITORING 1950 COLONOSCOPY - COLON CA SCREENING 1950 CT COLONOGRAPHY - COLON CA SCREENING 1950 Colorectal Cancer Screening 1950 FIT - COLON CA SCREENING 1950 FLEX SIG - COLON CA SCREENING 1950 LIPID TESTING 1950 MAMMOGRAM 1950 MEDICARE AWV 12 MONTHS 1950 HEPATITIS C SCREENING 05/21/1969 DTAP/TDAP/TD VACCINES (1 - Tdap) 05/25/1970 PNEUMOCOCCAL VACCINE 50+ (1 of 1 - PCV) 05/25/2001 ZOSTER VACCINE (1 of 2) 05/25/2001 COVID-19 VACCINE (1 - 2023-2 5 season) 2023 DEPRESSION SCREENING 03/04/2024 INFLUENZA VACCINE (Season Ended) 2024 Respiratory Syncytial Virus (RSV) Vaccine Pt: or over 60 yrs (1 - 1-dose 75+ series) 05/25/2026 HEPATITIS B VACCINE Aged Out No longe r eligible based on patient's age to complete this topic HIB VACCINE Aged Out No longer eligi ble based on patient's age to complete this topic HPV VACCINE Aged Out No longer eligi ble based on patient's age to complete this topic MENINGOCOCCAL (Group B) VACC INE SHARED DECISION-MAKING Aged Out No longer eligibl e based on patient's age to complete this topic MENINGOCOCCAL GROUPS A/C/Y/W VACCINE Aged Out No longer eligible b ased on patient's age to complete this topic Insurance MEDICARE MEDICARE SUPPLEMENT PAYOR GENERIC SELF PAY NO INSURANCE Member Subscriber Plan / Payer (Ef fective for All Dates) Name:Melanie Duff Member ID:Not on file Relation to Subscriber:Not on file Name:MELANIE DUFF Subscriber ID:Not on file (Home) Address: [address] [place] [address] Payer ID:Not on file Group ID:Not on file Type:Self Pay Address: [place], [place]
[2024-08-17 22:02] LABS: Cholesterol 270 mg/dL (0-200); HDL Direct 73 mg/dL; Triglycerides 121 mg/dL (<150)
[2024-08-17 22:05] LABS: Vitamin D 25 Hydroxy 47.6 ng/mL
[2024-08-17 22:48] LABS: Vitamin B12 < 159.0 pg/mL (239-931)
[2024-08-17 23:00] LABS: LDL Cholesterol Direct 154 mg/dL
[2024-08-18 03:31] LABS: Hemoglobin A1C 5.3 % (<5.7)
== END 2024-08-17 12:32 | disposition home or self-care (01) ==
LOC: ANHGOSHLAB 12:33
PROVIDERS: PCP Family Medicine; Visit Provider Family Medicine
DX: R73.9 Hyperglycemia, unspecified (principal); E78.5 Hyperlipidemia, unspecified; I10 Essential (primary) hypertension; E55.9 Vitamin D deficiency, unspecified; E53.8 Deficiency of other specified B group vitamins
CPT/HCPCS: 36415; 80061; 82306; 82607; 83036; 84443

== ENCOUNTER 2024-11-06 02:25 | Day surgery (SDC) | payer MEDICARE, SELFPAY ==
[2024-10-26 14:46] VITALS: BMI 29.1
[2024-11-06 08:38] VITALS: BP 135/73; PULSE 96; RESP 16; TEMP 36.1; O2SAT 98
[2024-11-06] MEDS: LACTATED RINGERS 1,000 ML 150 ML IV CONT (08:48)
--- NOTE | 2024-11-06 08:53 | P.PNAN_ITS ---
Anes - Initial Pre Proc Eval Procedure: Operation Date: 11/06/24 10:00 Proposed Procedures p Screening Colonoscopy - Floyd Stafford MD Date/Time: 11/06/24 08:53 Surgeon: Floyd Stafford MD Pre Op Diagnosis: Personal history of colon polyps, unspecified Patient Data Age: 74 Gender: F Height: 1.55 m Weight: 69.4 kg Last Vital Signs Temp 36.1 C L 11/06/24 08:38 Pulse 96 11/06/24 08:38 Resp 16 11/06/24 08:38 BP 135/73 11/06/24 08:38 Pulse Ox 98 11/06/24 08:38 O2 Del Method Room Air 11/06/24 08:38 Allergies Allergy/AdvReac Type Severity Reaction Status Date / Time Penicillins Allergy Unknown RASH Verified 11/06/24 08:36 Home Medications ?Medication ?Instructions ?Recorded ?Confirmed ?Type Lactobacillus 1 cap PO DAILY 10/07/2307/26 History acidophilus-Bifidobac.animalis 2.5 billion cell capsule (Daily Probiotic) cholecalciferol (vitamin D3) 25 25 mcg PO DAILY 11/06/24 History mcg (1,000 unit) capsule omeprazole magnesium 20 mg 20 mg PO DAILY #90 caps 11/06/24 Rx capsule,delayed release (Acid Network Support Manager (omeprazole)) cyanocobalamin (vitamin B-12) 1,000 mcg sublingual JULIA LY #90 tabs 08/18/2407/26 Rx 1,000 mcg sublingual tablet Patient hx anesthesia problems: none Family hx anesthesia problems: none Results Review: All pre-operative results and documents have been reviewed as part of the pre- operative evaluation. [facility] Past Medical History Medical History Tubulovillous adenoma of colon (~11/2023) GERD without esophagitis History of colon polyps (~11/2023) Breast cancer, left breast (~2006) s/p chemo(2007) and bilateral mastectomy(2008) Wellness examination Surgical History Surgical History History of reconstruction of both breasts (~2008) History of colectomy (~11/2023) 11/11/2023 - hand assisted laparoscopic right hemicolectomy c mobilization of hepatic flexure, lysis of adhesion Hx of cataract surgery (~2022) bilateral History of bladder surgery (~2004) bladder sling History of hysterectomy (~2004) along with bladder sling surgery Hx of cholecystectomy (~1975) History of mastectomy, total (~2009) bilateral with left axillary SLN biopsy. Family History Family History Mother Hypertension Social History Social History Smoking packs per day: 0.2 Smoking cigarettes per day: 4.0 Years smoked: 2 Smoking pack-years: 0.40 Smoking status: Never smoker Smoking end date: 03/04/74 Alcohol intake: current Drinks per week: 14 Alcohol use details: TWO GLASSES WINE WITH DINNER Substance use: never Substance use type: does not use Do You Feel Safe in your Home?: Yes Lack of Transportation: No Lack of Food: Never True Current Housing: I Have Housing Concerned About Future Housing: No Difficulty Paying Gas/Electric Bills: No Difficulty Paying for Meds: No Currently Unemployed: No Education: Bachelor's Degree Difficulty w/ Childcare or Family Care: No Living arrangements: with family Additional living arrangements comments: [place] Occupation/Education: retired Spiritual care concerns: No Anes - Eval Final PreProcedure Day of Procedure 11/06/24 08:53 Patient weight: overweight Heart: regular rate and rhythm Lungs: clear to auscultation Airway: Mallampati scale class II Neurological: alert and oriented Last oral intake: >/= 8 hours ASA classification: III Emergent: no Anesthetic plan: proceed Anesthesia type and monitoring: general GIVS and standard monitoring Results Review: All pre-operative results and documents have been reviewed as part of the pre- operative evaluation. Informed Consent: The patient's anesthetic plan and its attendant risks and benefits were discussed with the patient/family/POA. Questions were solicited and answers provided to the satisfaction of the patient/family/POA.
--- NOTE | 2024-11-06 09:27 | PM.HPGS ---
History of Present Illness History of Present Illness Consent: Risks, benefits, and alternatives have been discussed and questions answered. Patient agrees to proceed with procedure. Chief complaint: Personal history of colon polyps, unspecified Narrative: Melanie Duff is a 74 year old female with large TVA polyp in ascending colon last year that required surgery. Review of Systems Review of Systems: All systems reviewed & are unremarkable except as noted in HPI and below PMFSH Past Medical History Medical History Tubulovillous adenoma of colon (~11/2023) GERD without esophagitis History of colon polyps (~11/2023) Breast cancer, left breast (~2006) s/p chemo(2007) and bilateral mastectomy(2008) Wellness examination Surgical History Surgical History History of reconstruction of both breasts (~2008) History of colectomy (~11/2023) 11/11/2023 - hand assisted laparoscopic right hemicolectomy c mobilization of hepatic flexure, lysis of adhesion Hx of cataract surgery (~2022) bilateral History of bladder surgery (~2004) bladder sling History of hysterectomy (~2004) along with bladder sling surgery Hx of cholecystectomy (~1975) History of mastectomy, total (~2009) bilateral with left axillary SLN biopsy. Family History Family History Mother Hypertension Social History Social History Smoking packs per day: 0.2 Smoking cigarettes per day: 4.0 Years smoked: 2 Smoking pack-years: 0.40 Smoking status: Never smoker Smoking end date: 03/04/74 Alcohol intake: current Drinks per week: 14 Alcohol use details: TWO GLASSES WINE WITH DINNER Substance use: never Substance use type: does not use Do You Feel Safe in your Home?: Yes Lack of Transportation: No Lack of Food: Never True Current Housing: I Have Housing Concerned About Future Housing: No Difficulty Paying Gas/Electric Bills: No Difficulty Paying for Meds: No Currently Unemployed: No Education: Bachelor's Degree Difficulty w/ Childcare or Family Care: No Living arrangements: with family Additional living arrangements comments: [place] Occupation/Education: retired Spiritual care concerns: No Meds Home Medications and Allergies Home Medications ?Medication ?Instructions ?Recorded ?Confirmed ?Type Lactobacillus 1 cap PO DAILY 10/07/23 11/06/24 History acidophilus-Bifidobac.animalis 2.5 billion cell capsule (Daily Probiotic) cholecalciferol (vitamin D3) 25 25 mcg PO DAILY 10/30/23 11/06/24 History mcg (1,000 unit) capsule omeprazole magnesium 20 mg 20 mg PO DAILY #90 caps 08/17/24 11/06/24 Rx capsule,delayed release (Acid Supervisor Type Photography (omeprazole)) cyanocobalamin (vitamin B-12) 1,000 mcg sublingual DAILY #90 tabs 08/18/24 11/06/24 Rx 1,000 mcg sublingual tablet Allergies Allergy/AdvReac Type Severity Reaction Status Date / Time Penicillins Allergy Unknown RASH Verified 11/06/24 08:36 Vital Signs Vital Signs - 24 hr 11/06/24 08:38 Temperature 97 F L Pulse Rate 96 Respiratory Rate 16 Blood Pressure 135/73 Pulse Oximetry 98 Oxygen Delivery Room Air Exam Const: General: comfortable and no acute distress HENMT: Face/Nose/Sinus: Normal nares present Eyes: General: appearance normal, both eyes and all related structures Neck: Neck: no JVD Resp: Auscultation: clear to auscultation bilaterally Cardio: Rate: regular rate Rhythm: regular rhythm GI: Inspection: non-distended GI Palp: Yes Soft to palpation Skin: General skin exam: normal color Neuro: Speech: normal speech Extrem: General: normal to inspection Psych: Mental Status: mental status grossly normal Assessment and Plan Assessment and plan (1) Tubulovillous adenoma of colon: Onset Date: ~11/2023 Code(s): D12.6 - Benign neoplasm of colon, unspecified Status: Acute Assessment and Plan: colonoscopy
--- NOTE | 2024-11-06 09:37 | S_PTH ---
PATIENT: Melanie Duff LOC: KRISTIN Zavaleta#:[id number] AGE/SX: 74/F ROOM: RE11/06/[address]: Floyd Stafford MD : 1950 BED: DIS: 11/06/2024 SPEC #: [id number] RECD: 11/06/24 11:34 STATUS: JOSSE SELLERS #: [id number] LEROY: 11/06/24 09:[address]: Floyd Stafford DEPT: [facility] Surgical RECD BY: Kyra Durán ENTERED: 11/06/24 11:35 SP TYPE: Surgical OTHR DR: Lee Ann Webber MD Tissues: A - Colon Polypectomy B - Colon Polypectomy Procedures: Hematoxylin and Eosin Stain Gross and Microscopic Level 4
[2024-11-06 09:38] VITALS: BP 102/54; PULSE 78; RESP 20; O2SAT 95
[2024-11-06 09:48] VITALS: BP 114/60; PULSE 76; RESP 19; O2SAT 99
[2024-11-06 09:58] VITALS: BP 104/64; PULSE 73; RESP 20; O2SAT 100
== END 2024-11-06 10:04 | disposition home or self-care (01) ==
PROVIDERS: PCP Family Medicine; Referring Provider Family Medicine; Visit Provider Internal Medicine Gastroenterology
PROC: 0DJD8ZZ Inspection of Lower Intestinal Tract, Via Natural or Artificial Opening Endoscopic (ICD-10-PCS; CPT 45378; principal; 2024-11-06 10:00)
DX: Z48.3 Aftercare following surgery for neoplasm (principal); D12.5 Benign neoplasm of sigmoid colon; D12.3 Benign neoplasm of transverse colon; K57.30 Diverticulosis of large intestine without perforation or abscess without bleeding; K63.89 Other specified diseases of intestine; K64.8 Other hemorrhoids; Z86.0101 Personal history of adenomatous and serrated colon polyps; Z85.3 Personal history of malignant neoplasm of breast; K21.9 Gastro-esophageal reflux disease without esophagitis; Z90.710 Acquired absence of both cervix and uterus; Z90.13 Acquired absence of bilateral breasts and nipples
CPT/HCPCS: 45385; 88305; J2704; J7120